=== PATIENT | female | born 1955 | race Hispanic/Latino ===

== ENCOUNTER 2018-12-23 18:05 | Inpatient (IN) | payer OTHER | END 2018-12-30 15:35 | disposition home or self-care (01) | LOC: EDH 18:05 → 2AH 12-25 22:25 → EDHIP 20:01 → 2CH 22:06 | DX: I48.0 Paroxysmal atrial fibrillation (principal); I50.33 Acute on chronic diastolic (congestive) heart failure; Z68.43 Body mass index [BMI] 50.0-59.9, adult; E66.01 Morbid (severe) obesity due to excess calories; E78.5 Hyperlipidemia, unspecified; I11.0 Hypertensive heart disease with heart failure; G47.33 Obstructive sleep apnea (adult) (pediatric); R00.2 Palpitations; E87.6 Hypokalemia ==

== ENCOUNTER 2020-04-22 06:26 | Day surgery (SDC) | payer OTHER ==
[2020-04-18 10:39] LABS: BASOPHILS % (AUTO) 0.3 % (0.0-5.0); EOSINOPHILS % (AUTO) 1.9 % (0.0-8.0); HEMATOCRIT 40.7 % (36-48); LYMPHOCYTES % (AUTO) 23.9 % (21.0-51.0); MEAN CORPUSCULAR HEMOGLOBIN 29.2 pg (27.0-33.0); MEAN CORPUSCULAR HGB CONC 31.7 g/dL (32.0-36.0); MEAN CORPUSCULAR VOLUME 92.1 fL (79-99); MONOCYTES % (AUTO) 7.1 % (3.0-13.0); NEUTROPHILS % (AUTO) 66.5 % (40.0-77.0); PLATELET COUNT (AUTO) 307 K/uL (130-400); RED BLOOD CELL COUNT(AUTO) 4.42 MIL/uL (4.00-5.50); RED CELL DISTRIBUTION WIDTH 14.4 % (11.0-15.5)
[2020-04-18 10:48] LABS: CREATININE 0.8 mg/dL (0.5-1.5); POTASSIUM 4.1 mmol/L (3.5-5.1)
[2020-04-18 11:11] VITALS: BP 136/72
[~2020-04-22] VITALS: Ht 160 cm; Wt 137.0 kg
[~2020-04-22 06:26] MED LIST: AEC81 PO; AMLO-257 PO; APIX5TAB PO; DILT240C97 PO; HYDR12.54 PO; LISI-617 PO; METO100T14 PO
[2020-04-22 06:28] VITALS: BP 147/69
[2020-04-22] MEDS ORDERED: SODIUM CHLORIDE 0.9% 1000ML 1,000 ML IV ONE (07:20)
[2020-04-22] MEDS ORDERED: MIDAZOLAM HCL 1 MG/ML 2ML VIAL ONE (07:28)
[2020-04-22] MEDS ORDERED: MEPERIDINE-PF 25 MG/ML SYG ONE (07:28)
[2020-04-22] MEDS ORDERED: BUPIVACAINE/PF 0.25% 30ML VIAL IJ ONE (07:28)
[2020-04-22] MEDS ORDERED: LIDOCAINE HCL 1% MDV 50ML VIAL ONE (07:28)
[2020-04-22 08:50] VITALS: BP 131/62
== END 2020-04-22 09:45 | disposition home or self-care (01) ==
LOC: DAH 06:26
PROVIDERS: ATTEND Internal Medicine Cardiovascular Disease
DX: I48.0 Paroxysmal atrial fibrillation (principal); I44.0 Atrioventricular block, first degree; Z79.01 Long term (current) use of anticoagulants; Z79.899 Other long term (current) drug therapy
CPT/HCPCS: 33285; 36415; 80048; 85025; A4215; A4216; A4221; A4222; A4223 ×3; A4606; A4649; A4663; A6402; C1764; J3490 ×2; J7030; J2175; J2250

== ENCOUNTER 2021-07-01 10:45 | Observation (INO) | payer OTHER ==
[~2021-07-01] VITALS: Ht 160 cm; Wt 139.3 kg
[~2021-07-01 10:45] MED LIST changes: -AEC81 PO; -LISI-617 PO; +LISI5TAB21 PO
[2021-07-01 11:09] LABS: BASOPHILS % (AUTO) 0.4 % (0.0-5.0); EOSINOPHILS % (AUTO) 0.8 % (0.0-8.0); HEMATOCRIT 44.2 % (36-48); MEAN CORPUSCULAR VOLUME 87.9 fL (79-99); MONOCYTES % (AUTO) 5.5 % (3.0-13.0); NEUTROPHILS % (AUTO) 74.9 % (40.0-77.0); PLATELET COUNT (AUTO) 279 K/uL (130-400); RED BLOOD CELL COUNT(AUTO) 5.03 MIL/uL (4.00-5.50); RED CELL DISTRIBUTION WIDTH 15.7 % (11.0-15.5); WHITE BLOOD COUNT (AUTO) 11.1 K/uL (4.8-10.8)
[2021-07-01 11:19] LABS: CREATININE 0.9 mg/dL (0.5-1.5); POTASSIUM 3.9 mmol/L (3.5-5.1)
[2021-07-01 11:24] LABS: ALBUMIN 3.6 g/dL (3.5-5.0); BILIRUBIN,TOTAL 1.1 mg/dL (0.2-1.0); TOTAL PROTEIN, SERUM 7.5 g/dL (6.0-8.3)
[2021-07-01] MEDS ORDERED: MORPHINE 4 MG SYG ONE (11:42)
[2021-07-01] MEDS ORDERED: ONDANSETRON 4MG INJ ONE (11:42)
[2021-07-01 11:53] LABS: APPEARANCE,URINE Clear (CLEAR); BILIRUBIN,URINE Negative (NEGATIVE); COLOR,URINE Yellow (YELLOW); GLUCOSE, URINE (UA) Negative (NEGATIVE); KETONES,URINE Negative (NEGATIVE); LEUKOCYTE ESTERASE ,URINE Negative (NEGATIVE); NITRATE,URINE Negative (NEGATIVE); OCCULT BLOOD,URINE Negative (NEGATIVE); PROTEIN,URINE Trace mg/dL (NEGATIVE)
[2021-07-01 11:55] LABS: BACTERIA,URINE Rare /HPF (None Seen); RBC,URINE 0-1 /HPF (0-1); SQUAMOUS EPITHELIAL CELL,UR Rare /HPF (0-2); WBC,URINE 0-1 /HPF (0-1)
[2021-07-01] MEDS ORDERED: 0.9%NACL 1000ML 1,000 ML IV SCH (12:00)
[2021-07-01] MEDS ORDERED: ONDANSETRON 4MG INJ IVP SCH (12:00)
[2021-07-01] MEDS ORDERED: MORPHINE 4 MG SYG IV SCH (12:00)
[2021-07-01] MEDS ORDERED: MORPHINE 4 MG SYG IV ONE (13:30)
[2021-07-01] MEDS ORDERED: LABETALOL 20MG SYG IV PRN (16:00)
[2021-07-01] MEDS ORDERED: ACETAMINOPHEN 650 MG SUPPOSITORY RC PRN (16:00)
[2021-07-01] MEDS ORDERED: ACETAMINOPHEN 325 MG TAB PO PRN (16:00)
[2021-07-01] MEDS: LACTATED RINGERS 1000ML 1,000 ML IV SCH (16:00)
[2021-07-01] MEDS: ZOSYN 3.375GM +NS 50ML IV SCH ×2 (16:00→23:45)
[2021-07-01 17:06] VITALS: BP 122/73
[2021-07-01] MEDS ORDERED: DILT360C38 PO (19:45)
[2021-07-01] MEDS ORDERED: PROP225C8 PO (19:45)
[2021-07-01 20:19] VITALS: BP 140/86
[2021-07-01] MEDS: ONDANSETRON 4MG INJ IVP PRN (20:53)
[2021-07-01] MEDS: MORPHINE 2 MG SYG IVP PRN (20:54)
[2021-07-01] MEDS: METOPROLOL TARTRATE 50 MG TAB PO SCH (20:54)
[2021-07-01 23:40] VITALS: BP 117/58
[2021-07-01] MEDS: ENOXAPARIN SODIUM 120 MG/0.8ML SQ SCH (23:51)
[2021-07-02 03:25] LABS: BASOPHILS % (AUTO) 0.2 % (0.0-5.0); EOSINOPHILS % (AUTO) 1.6 % (0.0-8.0); HEMATOCRIT 41.5 % (36-48); LYMPHOCYTES % (AUTO) 18.7 % (21.0-51.0); MEAN CORPUSCULAR HEMOGLOBIN 28.7 pg (27.0-33.0); MEAN CORPUSCULAR VOLUME 89.6 fL (79-99); NEUTROPHILS % (AUTO) 73.2 % (40.0-77.0); PLATELET COUNT (AUTO) 259 K/uL (130-400); RED BLOOD CELL COUNT(AUTO) 4.63 MIL/uL (4.00-5.50); RED CELL DISTRIBUTION WIDTH 15.5 % (11.0-15.5); WHITE BLOOD COUNT (AUTO) 9.6 K/uL (4.8-10.8)
[2021-07-02 03:34] LABS: CREATININE 0.8 mg/dL (0.5-1.5); PHOSPHORUS 3.7 mg/dL (2.5-4.9); POTASSIUM 3.2 mmol/L (3.5-5.1)
[2021-07-02 04:46] VITALS: BP 173/56
[2021-07-02] MEDS: LACTATED RINGERS 1000ML 1,000 ML IV SCH ×2 (05:20→18:35)
[2021-07-02] MEDS ORDERED: POTASSIUM CHLORIDE 20MEQ/100ML 100 ML IV PRN ×2 (06:30→09:00)
[2021-07-02] MEDS ORDERED: LIDOCAINE HCL-MPF 1% 2ML VIAL IV PRN ×2 (06:30→09:00)
[2021-07-02] MEDS ORDERED: POTASSIUM CHLORIDE 10% ELIXIR 20 MEQ/15 ML UDCUP PO PRN (06:30)
[2021-07-02] MEDS ORDERED: MAGNESIUM 2GM PREMIX 50ML 50 ML IV PRN (06:30)
[2021-07-02 07:30] VITALS: BP 105/59
[2021-07-02] MEDS: ONDANSETRON 4MG INJ IVP PRN (07:35)
[2021-07-02] MEDS ORDERED: ENOXAPARIN SODIUM 40 MG/0.4 ML SYRINGE SQ SCH (09:00)
[2021-07-02] MEDS: AMLODIPINE 5 MG TAB PO SCH (09:00)
[2021-07-02] MEDS ORDERED: DIATR MEGLU/DIATRIZOATE SODIUM 30 ML BOTTLE ONE (10:14)
[2021-07-02] MEDS: DILTIAZEM 120MG SR CAP PO SCH (11:25)
[2021-07-02] MEDS: METOPROLOL TARTRATE 50 MG TAB PO SCH ×2 (11:25→20:13)
[2021-07-02] MEDS: ENOXAPARIN SODIUM 120 MG/0.8ML SQ SCH ×2 (11:25→20:14)
[2021-07-02] MEDS: MORPHINE 2 MG SYG IVP PRN (11:26)
[2021-07-02] MEDS: ZOSYN 3.375GM +NS 50ML IV SCH ×2 (11:28→16:34)
[2021-07-02 12:30] VITALS: BP 118/85
[2021-07-02] MEDS: KCL 20 MEQ ERTAB PO PRN ×3 (15:00→20:13)
[2021-07-02 16:00] VITALS: BP 114/80
[2021-07-02 20:50] VITALS: BP 130/93
[2021-07-03] MEDS ORDERED: METOPROLOL TARTRATE 1 MG/ML 5ML VIAL IV ONE ×2 (00:12→00:15)
[2021-07-03 00:32] VITALS: BP 127/74
[2021-07-03] MEDS: ZOSYN 3.375GM +NS 50ML IV SCH ×3 (00:32→18:06)
[2021-07-03 05:09] VITALS: BP 130/84
[2021-07-03 08:00] VITALS: BP 136/92
[2021-07-03] MEDS: AMLODIPINE 5 MG TAB PO SCH (09:00)
[2021-07-03] MEDS: ENOXAPARIN SODIUM 120 MG/0.8ML SQ SCH ×2 (09:35→20:25)
[2021-07-03] MEDS: DILTIAZEM 120MG SR CAP PO SCH (09:35)
[2021-07-03] MEDS: METOPROLOL TARTRATE 50 MG TAB PO SCH ×2 (09:36→20:24)
[2021-07-03] MEDS: LACTATED RINGERS 1000ML 1,000 ML IV SCH ×2 (09:37→20:27)
[2021-07-03 12:00] VITALS: BP 128/97
[2021-07-03 16:00] VITALS: BP 145/85
[2021-07-03 20:00] VITALS: BP 138/96
[2021-07-04] VITALS: BP 131/80
[2021-07-04] MEDS: ZOSYN 3.375GM +NS 50ML IV SCH ×2 (00:51→09:53)
[2021-07-04 04:00] VITALS: BP 150/74
[2021-07-04 08:00] VITALS: BP 127/91
[2021-07-04] MEDS: AMLODIPINE 5 MG TAB PO SCH (09:00)
[2021-07-04] MEDS ORDERED: POLY17PO4 PO (09:40)
[2021-07-04] MEDS: DILTIAZEM 120MG SR CAP PO SCH (09:54)
[2021-07-04] MEDS: METOPROLOL TARTRATE 50 MG TAB PO SCH (09:54)
[2021-07-04] MEDS: ENOXAPARIN SODIUM 120 MG/0.8ML SQ SCH (09:56)
[2021-07-04 12:00] VITALS: BP 148/90
== END 2021-07-04 12:50 | disposition home or self-care (01) ==
LOC: EDH 10:45 → EDHIP 15:38 → 3BH 16:59
PROVIDERS: ADMIT Internal Medicine Pulmonary Disease; ATTEND Internal Medicine Pulmonary Disease
DX: K56.609 Unspecified intestinal obstruction, unspecified as to partial versus complete obstruction (principal); I48.91 Unspecified atrial fibrillation; M19.90 Unspecified osteoarthritis, unspecified site; I10 Essential (primary) hypertension; G47.33 Obstructive sleep apnea (adult) (pediatric); E66.01 Morbid (severe) obesity due to excess calories; R11.2 Nausea with vomiting, unspecified; Z79.01 Long term (current) use of anticoagulants; Z79.899 Other long term (current) drug therapy; Z91.040 Latex allergy status; Z96.653 Presence of artificial knee joint, bilateral
CPT/HCPCS: 36415 ×3; 74018; 74176; 74250; 76705; 78227; 80048; 80053; 81001; 82550 ×3; 83690; 83735; 83874 ×3; 84100; 84132; 84484 ×4; 85025 ×2; 93005 ×3; 96361; 96365; 96366 ×3; 96372 ×4; 96375; 96376 ×2; 99285; A9537; G0378 ×68; J1650 ×5; J2270 ×2; J2405 ×3; J2543 ×9; J3490; J7120 ×2; Q9963

== ENCOUNTER → 2022-02-08 | Outpatient (CLI) | payer OTHER ==
[~2022-02-08] MED LIST changes: -AMLO-257 PO; -DILT240C97 PO; +DILT360C38 PO; +POLY17PO4 PO; +PROP225C8 PO
[2022-02-08 12:40] LABS: CREATININE 0.9 mg/dL (0.5-1.5); DIGOXIN 0.5 ng/mL (0.50-2.00); POTASSIUM 3.4 mmol/L (3.5-5.1)
== END | disposition home or self-care (01) ==
LOC: LAB 10:02
PROVIDERS: ATTEND Physician Assistant
DX: I10 Essential (primary) hypertension (principal); Z79.899 Other long term (current) drug therapy
CPT/HCPCS: 36415; 80048; 80162

== ENCOUNTER 2022-02-17 06:46 | Day surgery (SDC) | payer OTHER ==
[2022-02-15 15:51] LABS: BASOPHILS % (AUTO) 0.4 % (0.0-5.0); EOSINOPHILS % (AUTO) 1.8 % (0.0-8.0); HEMATOCRIT 44.8 % (36-48); LYMPHOCYTES % (AUTO) 22.8 % (21.0-51.0); MEAN CORPUSCULAR HEMOGLOBIN 29.2 pg (27.0-33.0); MEAN CORPUSCULAR HGB CONC 32.6 g/dL (32.0-36.0); MEAN CORPUSCULAR VOLUME 89.6 fL (79-99); NEUTROPHILS % (AUTO) 67.7 % (40.0-77.0); PLATELET COUNT (AUTO) 272 K/uL (130-400); RED CELL DISTRIBUTION WIDTH 15.5 % (11.0-15.5); WHITE BLOOD COUNT (AUTO) 10.2 K/uL (4.8-10.8)
[2022-02-15 15:56] LABS: CREATININE 0.9 mg/dL (0.5-1.5); POTASSIUM 3.4 mmol/L (3.5-5.1)
[2022-02-15 16:00] LABS: INR 1.03 (0.85-1.15); PROTHROMBIN TIME 11.2 SEC (9.6-11.6)
[2022-02-15 16:01] LABS: PARTIAL THROMBOPLASTIN TIME 28.1 SEC (26.3-35.5)
[2022-02-16 11:29] VITALS: BP 156/82
[~2022-02-17] VITALS: Ht 160 cm; Wt 140.6 kg
[2022-02-17] VITALS (15 sets, daily range): BP systolic 118–161; BP diastolic 57–100
[~2022-02-17 06:46] MED LIST changes: +DILT120T PO; -DILT360C38 PO; +DRON400T7 PO; +LISI10TA24 PO; -LISI5TAB21 PO; -POLY17PO4 PO; -PROP225C8 PO
[2022-02-17] MEDS ORDERED: 0.9%NACL 1000ML 1,000 ML IV ONE (07:18)
[2022-02-17] MEDS ORDERED: KCL 20 MEQ ERTAB PO PRN (08:00)
[2022-02-17] MEDS ORDERED: LIDOCAINE PF 100MG/5ML (2%) SYRINGE 5ML ONE (08:52)
[2022-02-17] MEDS ORDERED: PROPOFOL 10 MG/ML 20ML VIAL IV ONE (08:52)
== END 2022-02-17 10:30 | disposition home or self-care (01) ==
LOC: DAH 06:46
PROVIDERS: ATTEND Internal Medicine Cardiovascular Disease
DX: I48.19 Other persistent atrial fibrillation (principal); Z20.822 Contact with and (suspected) exposure to COVID-19; I44.0 Atrioventricular block, first degree; I49.1 Atrial premature depolarization; I10 Essential (primary) hypertension; E66.01 Morbid (severe) obesity due to excess calories; G47.33 Obstructive sleep apnea (adult) (pediatric); I25.2 Old myocardial infarction; Z79.01 Long term (current) use of anticoagulants; Z79.899 Other long term (current) drug therapy; Z88.6 Allergy status to analgesic agent; Z91.040 Latex allergy status; Z98.891 History of uterine scar from previous surgery; Z98.890 Other specified postprocedural states; Z82.49 Family history of ischemic heart disease and other diseases of the circulatory system; Z68.43 Body mass index [BMI] 50.0-59.9, adult
CPT/HCPCS: 87426; 80048; 85025; 85610; 85730; 36415; 92960; 93005 ×2; A4663; J7030 ×2; J2001; J2704; A4615; A4215; A4221; A4216; A4223 ×2; A4606; 99156

== ENCOUNTER → 2022-08-03 | Outpatient (CLI) | payer OTHER ==
[2022-08-03 12:31] LABS: CREATININE 0.8 mg/dL (0.5-1.5)
== END | disposition home or self-care (01) ==
LOC: LAB 10:14
PROVIDERS: ATTEND Internal Medicine Cardiovascular Disease
DX: I48.0 Paroxysmal atrial fibrillation (principal)
CPT/HCPCS: 36415; 82565; 84520

== ENCOUNTER → 2022-08-05 | Outpatient (CLI) | payer OTHER ==
[~2022-08-05] MED LIST changes: +IOHEXOL 350 MG/ML 100ML INFUS..BTL IV ONE
== END | disposition home or self-care (01) ==
LOC: RAH 10:09
PROVIDERS: ATTEND Internal Medicine Cardiovascular Disease
DX: I25.10 Atherosclerotic heart disease of native coronary artery without angina pectoris (principal); I48.0 Paroxysmal atrial fibrillation; I51.7 Cardiomegaly; K44.9 Diaphragmatic hernia without obstruction or gangrene; N28.1 Cyst of kidney, acquired
CPT/HCPCS: 71275; Q9967

== ENCOUNTER 2022-08-24 06:32 | Observation (INO) | payer OTHER ==
[2022-08-20 13:15] LABS: BASOPHILS % (AUTO) 0.2 % (0.0-5.0); EOSINOPHILS % (AUTO) 1.3 % (0.0-8.0); HEMATOCRIT 39.9 % (36-48); LYMPHOCYTES % (AUTO) 19.9 % (21.0-51.0); MEAN CORPUSCULAR HEMOGLOBIN 30.6 pg (27.0-33.0); MEAN CORPUSCULAR HGB CONC 32.8 g/dL (32.0-36.0); MEAN CORPUSCULAR VOLUME 93.2 fL (79-99); MONOCYTES % (AUTO) 7.9 % (3.0-13.0); NEUTROPHILS % (AUTO) 70.4 % (40.0-77.0); PLATELET COUNT (AUTO) 257 K/uL (130-400); RED BLOOD CELL COUNT(AUTO) 4.28 MIL/uL (4.00-5.50); RED CELL DISTRIBUTION WIDTH 15.3 % (11.0-15.5); WHITE BLOOD COUNT (AUTO) 9.2 K/uL (4.8-10.8)
[2022-08-20 13:25] LABS: INR 1.02 (0.85-1.15); PROTHROMBIN TIME 11.1 SEC (9.6-11.6)
[2022-08-20 13:26] LABS: CREATININE 1.1 mg/dL (0.5-1.5); PARTIAL THROMBOPLASTIN TIME 30.3 SEC (26.3-35.5); POTASSIUM 3.7 mmol/L (3.5-5.1)
[2022-08-20 13:43] VITALS: BP 149/60
[2022-08-24] VITALS (25 sets, daily range): BP systolic 119–157; BP diastolic 47–78
[~2022-08-24] VITALS: Ht 160 cm; Wt 141.7 kg
[~2022-08-24 06:32] MED LIST changes: +0.9%NACL 1000ML 1,000 ML IV SCH; -DILT120T PO; +DILT240C97 PO; -IOHEXOL 350 MG/ML 100ML INFUS..BTL IV ONE
[2022-08-24] MEDS ORDERED: HEPARIN 10,000 UNIT/10ML (1,000 UNIT/ML) VIAL ONE ×4 (08:19→11:17)
[2022-08-24] MEDS ORDERED: LIDOCAINE HCL 1% MDV 50ML VIAL ONE (08:19)
[2022-08-24] MEDS ORDERED: LIDOCAINE PF 100MG/5ML (2%) SYRINGE 5ML ONE (08:43)
[2022-08-24] MEDS ORDERED: SUCCINYLCHOLINE 200MG/10ML SYR ONE (08:43)
[2022-08-24] MEDS ORDERED: PHENYLEPHRINE HCL 10 MG/ML 1ML VIAL IV ONE (08:43)
[2022-08-24] MEDS ORDERED: EPHEDRINE SULFATE 50 MG/ML AMPULE ONE ×2 (08:44→14:00)
[2022-08-24] MEDS ORDERED: FENTANYL CITRATE PF 50 MCG/1 ML 5ML AMP IV ONE (08:44)
[2022-08-24] MEDS ORDERED: ROCURONIUM 10MG/1ML SYR 10 MG/ML ML ONE (08:44)
[2022-08-24] MEDS ORDERED: MIDAZOLAM HCL 1 MG/ML 2ML VIAL ONE (08:44)
[2022-08-24] MEDS ORDERED: PROPOFOL 10 MG/ML 20ML VIAL IV ONE (08:44)
[2022-08-24] MEDS ORDERED: GLYCOPYRROLATE 1 MG/5 ML SYRINGE ONE (08:44)
[2022-08-24] MEDS ORDERED: ONDANSETRON 4MG INJ ONE (08:46)
[2022-08-24] MEDS ORDERED: METOCLOPRAMIDE 10 MG/2 ML VIAL ONE (08:46)
[2022-08-24] MEDS ORDERED: DEXAMETHASONE SOD PHOSPHATE 10MG/ML 1ML VIAL ONE (08:46)
[2022-08-24] MEDS ORDERED: AMIODARONE 150MG VIAL ONE ×2 (10:58→12:46)
[2022-08-24 12:38] LABS: ABG BASE EXCESS -2.3 mmol/L (-2.0-3.0); ABG HCO3 23.8 mmol/L (21.0-28.0); ABG OXYGEN SATURATION 86.1 % (95.0-99.0); ABG PCO2 46 mmHg (32-45)
[2022-08-24] MEDS ORDERED: PROTAMINE SULFATE 10 MG/ML 25ML VIAL IV ONE (13:11)
[2022-08-24 13:59] LABS: ABG BASE EXCESS -0.2 mmol/L (-2.0-3.0); ABG HCO3 25.3 mmol/L (21.0-28.0); ABG OXYGEN SATURATION 99.3 % (95.0-99.0); ABG PCO2 45 mmHg (32-45)
[2022-08-24] MEDS ORDERED: [UNRECOGNIZED DRUG - REMARK] MISC SCH (14:30)
[2022-08-24] MEDS ORDERED: PANTOPRAZOLE 40 MG TAB DR PO SCH (15:00)
[2022-08-24] MEDS: SUCRALFATE 1 GM TABLET PO SCH ×2 (15:58→20:08)
[2022-08-24] MEDS: DRONEDARONE HYDROCHLORIDE 400 MG TABLET PO SCH (20:08)
[2022-08-24] MEDS ORDERED: ENOXAPARIN SODIUM 120 MG/0.8ML SQ ONE (21:00)
[2022-08-25] MEDS: SUCRALFATE 1 GM TABLET PO SCH ×2 (00:53→08:25)
[2022-08-25 04:30] VITALS: BP 141/67
[2022-08-25 07:16] VITALS: BP 158/76
[2022-08-25] MEDS: APIXABAN 5 MG TABLET PO SCH ×2 (08:23→12:03)
[2022-08-25] MEDS: DRONEDARONE HYDROCHLORIDE 400 MG TABLET PO SCH (08:24)
[2022-08-25] MEDS ORDERED: HYDROCHLOROTHIAZIDE 25 MG TABLET PO SCH (09:00)
[2022-08-25] MEDS ORDERED: METOPROLOL TARTRATE 50 MG TAB PO SCH (09:00)
[2022-08-25] MEDS ORDERED: DILTIAZEM 120MG SR CAP PO SCH (09:00)
[2022-08-25] MEDS ORDERED: PANTOPRAZOLE 40 MG TAB DR PO SCH (09:00)
[2022-08-25] MEDS ORDERED: LISINOPRIL 10 MG TABLET PO SCH (09:00)
[2022-08-25] MEDS ORDERED: PANT40TA PO (10:52)
[2022-08-25] MEDS ORDERED: SUCR1ORA15 PO (10:52)
[2022-08-25 11:14] VITALS: BP 149/61
== END 2022-08-25 13:20 | disposition home or self-care (01) ==
LOC: DAH 06:32 → DAHIP 06:33 → 2DH 15:40
PROVIDERS: ADMIT Internal Medicine Cardiovascular Disease; ATTEND Internal Medicine Cardiovascular Disease
DX: I48.0 Paroxysmal atrial fibrillation (principal); Z20.822 Contact with and (suspected) exposure to COVID-19; I10 Essential (primary) hypertension; E66.01 Morbid (severe) obesity due to excess calories; Z79.01 Long term (current) use of anticoagulants; Z79.899 Other long term (current) drug therapy; Z98.891 History of uterine scar from previous surgery; Z68.43 Body mass index [BMI] 50.0-59.9, adult
CPT/HCPCS: 80048; 85025; 85610; 85730; 36415; 93005 ×3; 93622; 93656; 93657; 96372; 82435 ×2; 82947 ×2; 84132 ×2; 84295 ×2; 82803 ×2; 85018 ×2; 83605 ×2; 87426; 36600; C1894 ×4; A4344; C1732 ×2; C1893; A4215 ×2; C1731; A4649 ×2; G0378 ×23; A4663 ×2; J3010; J0330; J3490 ×4; J1100; J2720; J2001; J1644 ×5; J2250; J2704; J2405; J2765; J1650; J2370; J0282 ×2; A4223 ×3; A4222; A4221; A4216; A4606

== ENCOUNTER → 2023-04-29 | Outpatient (CLI) | payer OTHER ==
[~2023-04-29] MED LIST changes: -0.9%NACL 1000ML 1,000 ML IV SCH; +REGADENOSON 0.4 MG/5 ML PF SYG IVP ONE
== END | disposition home or self-care (01) ==
LOC: SHCH 09:10
PROVIDERS: ATTEND Internal Medicine Cardiovascular Disease
DX: I48.0 Paroxysmal atrial fibrillation (principal); R94.39 Abnormal result of other cardiovascular function study; R07.89 Other chest pain; I48.92 Unspecified atrial flutter
CPT/HCPCS: 78452; 93017; J2785; A9500 ×2; 96374

== ENCOUNTER → 2023-08-03 | Outpatient (CLI) | payer OTHER ==
[~2023-08-03] MED LIST changes: -REGADENOSON 0.4 MG/5 ML PF SYG IVP ONE
== END | disposition home or self-care (01) ==
LOC: SHCH 12:45
PROVIDERS: ATTEND Internal Medicine Cardiovascular Disease
DX: I87.2 Venous insufficiency (chronic) (peripheral) (principal)
CPT/HCPCS: 93970

== ENCOUNTER 2024-02-21 04:30 | Inpatient (IN) | payer OTHER ==
[~2024-02-21] VITALS: Ht 160 cm; Wt 105.0 kg
--- NOTE | 2024-02-21 04:42 | ERN ---
ED Note History of Present Illness Stated Complaint: C/O ABD PAIN WITH N X V ONSET MIDNIGHT. Chief Complaint: Abdominal Pain Time Seen by MD: 04:35 Dictation: This is a 68-year-old extremely morbidly obese female who came in with severe abdominal pain mostly in the epigastrium and right upper quadrant area. She stated that she ate some taquitos she developed the severe crampy abdominal pain toes after which This kept her up all night associated with nausea and vomitings. By 530 she could not bear the pain and woke her came to the ER for further evaluation she had similar severe abdominal pain in the past at which time she was noted to have pancreatitis. She also had outpatient evaluation by EGD and was told she had H pylori which was treated. She appeared extremely uncomfortable due to pain. She denied history of any alcohol intake or gallbladder problems in the past. Temperature 98.2 pulse 65 respirations 20 blood pressure 163/81 pulse oximetry 97% on room air Her chronic medical problems include Acute on chronic pancreatitis Primary HTN Chronic Afib on DOAC history of ablation and EFE CHF, not on exacerbation, stage III diastolic dysfunction: EF 35-40% (echo on 03/2022) POOJA on CPAP Morbid Obesity HX of SBO Allergies: Coded Allergies: Latex, Natural Rubber (Verified Allergy, Unknown, 12/23/18) codeine (Verified Allergy, Unknown, 12/23/18) Home Meds Reported Medications Dronedarone Hydrochloride (Multaq) 400 Mg Tablet, 400 MG PO BID, TAB 10/14/23 Diltiazem HCl (Diltiazem 24Hr ER) 240 Mg Cap.er.24h, 240 MG PO DAILY, CAPSULE.DR 08/20/22 Metoprolol Tartrate (Metoprolol Tartrate) 100 Mg Tablet, 100 MG PO BID, TAB 08/20/22 Apixaban (Eliquis) 5 Mg Tablet, 5 MG PO BID, TAB 02/16/22 Lisinopril (Lisinopril) 10 Mg Tablet, 10 MG PO DAILY, TAB 02/16/22 Hydrochlorothiazide (Hydrochlorothiazide) 12.5 Mg Tablet, 12.5 MG PO DAILY, TAB 04/21/20 Past Medical History Past Medical History: A-Fib, Hypertension, Pancreatitis Surgical History: Other, Surgical History Other: BILATERAL KNEE REPLACEMENT Social History: Other History: Not Applicable RN Note Reviewed/Agreed w/PFSH: Yes Review of System Dictation Constitutional: Negative for fever,chills, and weight loss Eyes: Negative for injury, pain,redness, and discharge ENT: Negative for injury,pain or swelling Cardiovascular: Negative for chest pain, palpitations, and edema Respiratory: Negative for shortness of breath, cough, and wheezing, Abdomen/GI: Positive for abdominal pain, nausea, vomiting, denies diarrhea, and constipation Back: Negative for injury and pain : Negative for injury, bleeding and discharge MS/Extremity: Negative for injury and deformity Skin: Negative for rash, and discoloration Neuro: Negative for headache, weakness, numbness, tingling, and seizure Psych: Negative for suicide ideation, homicidal ideation, and hallucinations Initial Vital Sign VS Vital Signs Date Time Temp Pulse Resp B/P (MAP) Pulse Ox O2 Delivery O2 Flow Rate FiO2 02/21/24 04:33 98.2 65 20 163/81 97 Room Air Physical Exam Dictation General: awake, alert, NAD extremely obese Head/Face: Normocephalic, atraumatic Eyes: PERRL, EOMI, vision at baseline ENT: oral cavity clear, TMs clear, no signs of infection Neck: Trachea midline, supple, no nuchal rigidity Cardiovascular: RRR, normal S1/S2, No MRGs, no JVD Respiratory: CTAB, no respiratory distress, No rales or wheezes Abdomen: Soft, tender in the epigastric area and right upper quadrant non- distended, normal bowel sounds, no guarding or rebound. Skin: Warm, dry, normal turgor, no rash MS/Extremity: Pulses equal, no cyanosis, neurovascular intact, FROM Neuro: COAx4, GCS 15, strength 5/5, CN 2-12 intact, normal cerebellar exam, normal gait, Psych: Normal behavior, mood, and affect normal Extremities-trace edema without any palpable cords, Homans sign is negative Results (Laboratory/Radiology) Laboratory/Radiology Laboratory Tests Test 02/21/24 05:06 White Blood Count 5.6 K/uL (4.8-10.8) Red Blood Count 4.76 MIL/uL (4.00-5.50) Hemoglobin 14.5 g/dL (12.0-16.0) Hematocrit 43.5 % (36-48) Mean Corpuscular Volume 91.4 fL (79-99) Mean Corpuscular Hemoglobin 30.5 pg (27.0-33.0) Mean Corpuscular Hemoglobin Concent 33.3 g/dL (32.0-36.0) Red Cell Distribution Width 14.2 % (11.0-15.5) Platelet Count 249 K/uL (130-400) Mean Platelet Volume 11.4 fL (7.5-10.5) H Immature Granulocyte % (Auto) 0.5 % (0-1) Neutrophils (%) (Auto) 89.6 % (40.0-77.0) H Lymphocytes (%) (Auto) 9.3 % (21.0-51.0) L Monocytes (%) (Auto) 0.2 % (3.0-13.0) L Eosinophils (%) (Auto) 0.2 % (0.0-8.0) Basophils (%) (Auto) 0.2 % (0.0-5.0) Neutrophils # (Auto) 5.0 K/uL (1.8-7.7) Lymphocytes # (Auto) 0.5 K/uL (1.0-4.8) L Monocytes # (Auto) 0.0 K/uL (0.1-1.0) L Eosinophils # (Auto) 0.01 K/uL (0.00-0.70) Basophils # (Auto) 0.01 K/uL (0.00-0.20) Absolute Immature Granulocyte (auto 0.03 K/uL (0-1) Nucleated Red Blood Cells 0.0 % (0.0-0.19) White Cell Morphology Comment See comments Sodium Level 147 mmol/L (136-145) H Potassium Level 2.8 mmol/L (3.5-5.1) *L Chloride Level 105 mmol/L (101-111) Carbon Dioxide Level 35 mmol/L (21-32) H Blood Urea Nitrogen 15 mg/dL (7-18) Creatinine 1.0 mg/dL (0.5-1.0) Glomerular Filtration Rate Calc 62 mL/min (>90) Random Glucose 133 mg/dL (70-105) H Total Calcium 9.2 mg/dL (8.5-10.1) Total Bilirubin 1.5 mg/dL (0.2-1.0) H Direct Bilirubin 0.8 mg/dL (0.0-0.3) H Aspartate Amino Transf (AST/SGOT) 243 U/L (10-37) H Alanine Aminotransferase (ALT/SGPT) 99 U/L (12-78) H Alkaline Phosphatase 142 U/L (50-136) H Total Protein 7.3 g/dL (6.0-8.3) Albumin 3.7 g/dL (3.5-5.0) Labs Reviewed?: Yes ED Course ED Course Orders Procedure Category Date Status Time Vital Signs Per CPOE 02/21/24 Transmitted Routine 04:32 Saline Lock Iv CPOE 02/21/24 Transmitted 04:32 Cbc With Differential LAB 02/21/24 Complete 04:32 Lipase LAB 02/21/24 In Process 04:32 Urinalysis Profile LAB 02/21/24 Logged 04:32 Basic Metabolic Panel LAB 02/21/24 In Process 04:32 0.9%Nacl 1000ml (Ns PHA 02/21/24 Complete 1000ml) 05:00 Ondansetron 4mg Inj PHA 02/21/24 Complete (Zofran 4mg Inj) 05:00 Pantoprazole 40mg Inj PHA 02/21/24 Complete (Protonix 40mg Inj 05:00 Hepatic Function Panel LAB 02/21/24 In Process 04:32 Morphine 4mg Syg PHA 02/21/24 Complete (Morphine 4mg Syg) 05:30 Us Abdominal Ruq\Ltd US 02/21/24 Taken 05:54 Potassium Bicarb/Cit PHA 02/21/24 In Process Ac 25meq (K-Lyte Ta 06:30 Edm Admit Bridge Order ADM 02/21/24 Verified 06:26 Admit Orders ADM 02/21/24 Verified 06:26 Amp/Sulbac 1.5gm+Ns PHA 02/21/24 Verified 100ml (Unasyn 1.5gm+ 06:30 Current Medications Medications (Trade) Dose Ordered Sig/Umer Route PRN Reason Start Time Stop Time Status Last Admin Dose Admin Morphine Sulfate (morPHINE 4MG SYG) 4 mg ONCE ONCE IVP 02/21/24 05:30 02/21/24 05:31 DC 02/21/24 05:32 Ondansetron HCl (zoFRAN 4MG INJ) 4 mg ONCE ONCE IVP 02/21/24 05:00 02/21/24 05:01 DC 02/21/24 05:32 Pantoprazole Sodium (PROTonix 40MG INJ) 40 mg ONCE ONCE IVP 02/21/24 05:00 02/21/24 05:01 DC 02/21/24 05:32 Potassium Bicarbonate (K-Lyte Tablet Eff 25 Meq Tablet.eff) 25 meq ONCE ONCE PO 02/21/24 06:30 02/21/24 06:31 Sodium Chloride 1,000 ml @ 0 mls/hr ONCE ONCE IV 02/21/24 05:00 02/21/24 05:01 DC 02/21/24 05:32 Vital Signs Date Time Temp Pulse Resp B/P (MAP) Pulse Ox O2 Delivery O2 Flow Rate FiO2 02/21/24 04:33 98.2 65 20 163/81 97 Room Air We will perform diagnostic labs, advanced imaging and administer medications according to the patient's complaint. Once the results are available, will review and personally interpreted the labs to rule out any acute life- threatening emergency the trach require immediate intervention and treatment. I will then re-evaluate the patient after treatment and diagnostic exams have return to determine whether the patient requires any further testing, can safely be discharged home or need further admission to hospital for additional treatment and evaluation. 5:40 a.m. CBC within normal limits BNP 7 is still pending. She does admit to some improvement after morphine and hydration is in progress. 6:02 a.m. BNP 7 and hepatic panel reported potassium 2.8 bicarb 35 BUN and creatinine are 15 and 1.0 LFTs are abnormal with increased transaminases and bilirubin. Ultrasound of the abdomen is pending at this time I recommended admission to the hospital to evaluate abnormal LFTs in the setting of abdominal pain raising a concern for recurrent pancreatitis, cholelithiasis and cholecystitis. Lipase is still pending patient may need even triglycerides checked Medical Decision Making MDM MDM: Differential diagnosis: Acute gastritis, biliary colic, acute cholecystitis, pancreatitis Rationale: Tests considered and ordered secondary to shared decision making include: labs, ECG and radiology Previous outside records reviewed: Old ER visits. Risk of complication and/or morbidity or mortality of patient management: None Medications-Per medication reconciliation Need for hospitalization: Patient does meet criteria for hospitalization. Need for emergency major/minor surgery: No There are no social concerns with this patient. Prescription drug management Prescriptions will include symptomatic care Patient's prior external medical records from other ER visits were reviewed by me as indicated. Prior testing and results from previous visits were reviewed. Prior tests were taken into account with medical decision making and resource utilization, independent historian/historians were used to obtain complete medical history. I independently interpreted the test that were performed, results were reviewed by me and considered findings on radiology if ordered. Medical management and examination interpretation discussions were had by me with other qualified healthcare professionals as indicated for the patient's care. DX & DISP Disposition: Inpatient Decision to Admit Time: 05:55 Departure Impression: Primary Impression: Acute abdominal pain Additional Impressions: Nausea & vomiting, Abnormal transaminases, Hyperbilirubinemia, Hypokalemia, Recurrent pancreatitis Condition: Stable Additional Instructions: Patient was informed of all the diagnostic labs and procedures conducted in the emergency room today and demonstrated understanding of the results. I personally reviewed and interpreted all the diagnostic exams performed in the ER today. The patient will be admitted to the hospital for further treatment and evaluation. Disposition-admit to facility Condition-stable/guarded Course-uncertain at this time Pain status-decreased Assessment-exam unchanged Admission Certification- I certify that the patients status is appropriate and is based on my best clinical judgment and the patient's condition as documented in the medical records Referrals: SEAN NASCIMENTO MD (PCP) JULIETA CUMMINS MD Feb 21, 2024 04:42
[2024-02-21 05:28] LABS: BASOPHILS # (AUTO) 0.01 K/uL (0.00-0.20); BASOPHILS % (AUTO) 0.2 % (0.0-5.0); EOSINOPHILS # (AUTO) 0.01 K/uL (0.00-0.70); EOSINOPHILS % (AUTO) 0.2 % (0.0-8.0); HEMATOCRIT 43.5 % (36-48); IMMATURE GRANULOCYTE ABSOLUTE 0.03 K/uL (0-1); LYMPHOCYTES # (AUTO) 0.5 K/uL (1.0-4.8); LYMPHOCYTES % (AUTO) 9.3 % (21.0-51.0); MEAN CORPUSCULAR HEMOGLOBIN 30.5 pg (27.0-33.0); MEAN CORPUSCULAR HGB CONC 33.3 g/dL (32.0-36.0); MEAN CORPUSCULAR VOLUME 91.4 fL (79-99); MONOCYTES % (AUTO) 0.2 % (3.0-13.0); NEUTROPHILS % (AUTO) 89.6 % (40.0-77.0); PLATELET COUNT (AUTO) 249 K/uL (130-400); RED BLOOD CELL COUNT(AUTO) 4.76 MIL/uL (4.00-5.50); RED CELL DISTRIBUTION WIDTH 14.2 % (11.0-15.5); WHITE BLOOD COUNT (AUTO) 5.6 K/uL (4.8-10.8)
[2024-02-21 05:32] LABS: ALBUMIN 3.7 g/dL (3.5-5.0); BILIRUBIN,DIRECT 0.8 mg/dL (0.0-0.3); BILIRUBIN,TOTAL 1.5 mg/dL (0.2-1.0); TOTAL PROTEIN, SERUM 7.3 g/dL (6.0-8.3)
[2024-02-21] MEDS: 0.9%NACL 1000ML 1,000 ML IV ONE (05:32)
[2024-02-21] MEDS: ondanSETRON 4MG INJ IVP ONE (05:32)
[2024-02-21] MEDS: PANTOPrazole 40 MG/VIAL IVP ONE (05:32)
[2024-02-21] MEDS: morPHINE 4 MG SYG IVP ONE (05:32)
[2024-02-21 05:48] LABS: POTASSIUM 2.8 mmol/L (3.5-5.1)
[2024-02-21] MEDS ORDERED: acetaMINOPHEN 650 MG SUPPOSITORY RC PRN (06:30)
[2024-02-21] MEDS ORDERED: LAbetaLOL 20MG SYG IV PRN (06:30)
[2024-02-21] MEDS ORDERED: hydrALAZine 20MG/ML VIAL IV PRN (06:30)
[2024-02-21] MEDS: UNASYN 1.5GM+NS 100ML IV ONE (06:48)
[2024-02-21] MEDS: PoTASSium BIcarbonate/CIT AC 25 MEQ TABLET.EFF PO ONE (07:11)
--- NOTE | 2024-02-21 07:45 | NUR ---
REPORT RECEIVED FROM [facility]AB[facility]ODRIGUESKN[facility] OUT [facility]
--- NOTE | 2024-02-21 08:20 | HMCIMG ---
US ABDOMINAL RUQ\E\LTD HISTORY: cholecystitis? abnormal LFTS Abdominal pain N/V? COMPARISON: 10/13/2023 FINDINGS: There is moderate fatty infiltration of the liver. There are no focal liver masses. The liver is enlarged at 19 cm.Gallbladder appears distended to 10 cm. There is mild pericholecystic edema. There are no visible gallstones. These findings could represent acalculous cholecystitis in the appropriate clinical setting. Common duct is normal at 5 mm.. Right kidney is normal with no evidence of mass, hydronephrosis or stone.The pancreas appears normal as well. IMPRESSION: 1. Distended gallbladder with mild wall thickening and with some pericholecystic edema, no stones identified, this could represent acute cholecystitis in the appropriate clinical setting. 2. Moderate hepatic steatosis, the liver is also enlarged at 19 cm.
--- NOTE | 2024-02-21 08:30 | NUR ---
INTRODUCTIONS MADE TO PT.
[2024-02-21] MEDS: PoTASSium chloRIDE 20MEQ/100ML 100 ML IV ONE (09:13)
[2024-02-21] MEDS: HYDROcodone/APAP 5/325 1 TAB TABLET PO PRN (09:13)
[2024-02-21] MEDS: LACTATED RINGERS 1000ML 1,000 ML IV SCH (09:13)
[2024-02-21] MEDS: ENOXAPARIN SODIUM 40 MG/0.4 ML SYRINGE SQ SCH (09:14)
--- NOTE | 2024-02-21 09:57 | NUR ---
SURGICAL CONSULT: I JUST SPOKE W/DR ESCOBAR AND INFORMED HIM OF PT.
--- NOTE | 2024-02-21 09:59 | NUR ---
PT ABLE TO GET OOB AND AMBULATE W/A STEADY GAIT TO THE RESTROOM.
[2024-02-21] MEDS ORDERED: levoFLOXacin 500 MG/D5W 100 ML 100 ML IV SCH (10:00)
[2024-02-21] MEDS ORDERED: metRONIDazole 500MG/100ML BAG IV SCH (10:00)
--- NOTE | 2024-02-21 10:09 | HP ---
[facility] HISTORY & PHYSICAL Date Patient Seen: Feb 21, 2024 Time of Visit: 09:53 Supervising Physician: [Dr. Lew] Primary Care Physician: [Dr. Codey Cameron] Outpatient Specialists: [ ] Inpatient Consults: [Dr. Mix] PROBLEM LIST: Acute on chronic pancreatitis, pending LDH to calculate susanne's score Acute cholecystitis Permanent atrial fibrillation, on anti-arrhythmics s/p ablation Intractable abdominal pain with nausea and vomiting H-pylori, treated Plan: 2L LR bolus now Continue maintenance fluids with LR @ 125ml/hr Considered levaquin and flagyl given recent hx of h pylori but will avoid quinolone with known QT prolongation in Afib patient Start Zosyn General surgery consult Start protonix drip NPO Zofran prn Order HIDA scan Trend lipase/LFT's Order triglycerides Monitor and replace electrolytes, potassium Pain management Resume home meds including antiarrhymics, hold lisinopril, HCTZ and eliquis Start lovenox prophylaxis HPI: [This is a 68-year-old female with a history of hypertension and chronic pancreatitis who presented to the ED for evaluation of severe abdominal pain associated with nausea and vomiting onset to few hours prior to arrival. Per ED report, her pain was located mostly in epigastric area as well as right upper quadrant. She has a history of pancreatitis and had an endoscopy done recently which revealed H pylori for which she was treated. Her labs on admission remarkable for hypokalemia of 2.8 [place] [id number]. She has some mild elevation in her LFTs with ALT of 2.23 and AST of 99. Her bilirubin was 1.5. Blood sugar is 133, WBCs were 5. Her abdominal ultrasound on admission revealed a distended gallbladder, no stones, but did have pericholecystic edema which could represent acute cholecystitis. She had a CT of the abdomen on 10/13/2023 which revealed small bilateral renal cysts as well as distended gallbladder but was otherwise unremarkable. Patient currently in 5/10 pain. States symptoms started after eating [employer] the day before around 4:30PM. She then ate a muffin around 9PM and started with vomiting greater than 10 times, no diarrhea. She last vomited as she arrived in the ED. Patient admits a hx of pancreatitis X 4. She reports being treated for an incomplete bowel obstruction in 2006, no surgical intervention at that time.] PAST MEDICAL HX: see above PAST SURGICAL HX: noncontributory SOCIAL HISTORY: No tobacco, ETOH, or illicit drug use Coded Allergies: Latex, Natural Rubber (Verified Allergy, Unknown, 12/23/18) codeine (Verified Allergy, Unknown, 12/23/18) REVIEW OF SYSTEMS: 12 point ROS reviewed with patient. Pertinent positives mentioned above. Otherwise negative. PHYSICAL EXAM: GENERAL: alert, weak, awake oriented x 3 HEENT: EOMI, Sclera non icteric, moist mucosa NECK: Supple, no JVD, trachea midline LUNGS: Clear breath sounds bilaterally. No wheezes HEART: Regular rate and rhythm. Normal S1 and S2, without murmurs ABD: Abdomen soft, nontender. Bowel sounds present EXT: No clubbing cyanosis or edema NEURO: Alert and oriented to person, follows commands Vital Signs (last 8hr) Date Time Temp Pulse Resp B/P (MAP) Pulse Ox O2 Delivery O2 Flow Rate FiO2 02/21/24 07:00 98.8 73 16 153/61 98 Room Air* 0 21 02/21/24 04:33 98.2 65 20 163/81 97 Room Air LABS: Hematology Labs: Test 02/21/24 05:06 Range/Units White Blood Count 5.6 4.8-10.8 K/uL Red Blood Count 4.76 4.00-5.50 MIL/uL Hemoglobin 14.5 12.0-16.0 g/dL Hematocrit 43.5 36-48 % Mean Corpuscular Volume 91.4 79-99 fL Mean Corpuscular Hemoglobin 30.5 27.0-33.0 pg Mean Corpuscular Hemoglobin Concent 33.3 32.0-36.0 g/dL Red Cell Distribution Width 14.2 11.0-15.5 % Platelet Count 249 130-400 K/uL Mean Platelet Volume 11.4 H 7.5-10.5 fL Immature Granulocyte % (Auto) 0.5 0-1 % Neutrophils (%) (Auto) 89.6 H 40.0-77.0 % Lymphocytes (%) (Auto) 9.3 L 21.0-51.0 % Monocytes (%) (Auto) 0.2 L 3.0-13.0 % Eosinophils (%) (Auto) 0.2 0.0-8.0 % Basophils (%) (Auto) 0.2 0.0-5.0 % Neutrophils # (Auto) 5.0 1.8-7.7 K/uL Lymphocytes # (Auto) 0.5 L 1.0-4.8 K/uL Monocytes # (Auto) 0.0 L 0.1-1.0 K/uL Eosinophils # (Auto) 0.01 0.00-0.70 K/uL Basophils # (Auto) 0.01 0.00-0.20 K/uL Absolute Immature Granulocyte (auto 0.03 0-1 K/uL Nucleated Red Blood Cells 0.0 0.0-0.19 % White Cell Morphology Comment See comments Chemistry Labs: Test 02/21/24 05:06 Range/Units Sodium Level 147 H 136-145 mmol/L Potassium Level 2.8 *L 3.5-5.1 mmol/L Chloride Level 105 101-111 mmol/L Carbon Dioxide Level 35 H 21-32 mmol/L Blood Urea Nitrogen 15 7-18 mg/dL Creatinine 1.0 0.5-1.0 mg/dL Glomerular Filtration Rate Calc 62 >90 mL/min Random Glucose 133 H 70-105 mg/dL Total Calcium 9.2 8.5-10.1 mg/dL Total Bilirubin 1.5 H 0.2-1.0 mg/dL Direct Bilirubin 0.8 H 0.0-0.3 mg/dL Aspartate Amino Transf (AST/SGOT) 243 H 10-37 U/L Alanine Aminotransferase (ALT/SGPT) 99 H 12-78 U/L Alkaline Phosphatase 142 H 50-136 U/L Total Protein 7.3 6.0-8.3 g/dL Albumin 3.7 3.5-5.0 g/dL Lipase 58671 *H 16-77 U/L DIAGNOSTICS / RADIOLOGY RESULTS: US ABDOMINAL RUQ\E\LTD HISTORY: cholecystitis? abnormal LFTS Abdominal pain N/V? COMPARISON: 10/13/2023 FINDINGS: There is moderate fatty infiltration of the liver. There are no focal liver masses. The liver is enlarged at 19 cm.Gallbladder appears distended to 10 cm. There is mild pericholecystic edema. There are no visible gallstones. These findings could represent acalculous cholecystitis in the appropriate clinical setting. Common duct is normal at 5 mm.. Right kidney is normal with no evidence of mass, hydronephrosis or stone.The pancreas appears normal as well. IMPRESSION: 1. Distended gallbladder with mild wall thickening and with some pericholecystic edema, no stones identified, this could represent acute cholecystitis in the appropriate clinical setting. 2. Moderate hepatic steatosis, the liver is also enlarged at 19 cm. SERVICE 20 REASON: abdominal pain ORDERING PHYSICIAN: OCTAVIO KIMBLE PROCEDURE: ABD PEL W - CT ABDOMEN/PELVIS W/CONTRAST CT ABDOMEN/PELVIS W/CONTRAST HISTORY: Abdominal pain COMPARISON: None TECHNIQUE: Multiple sequential axial images of the abdomen and pelvis were obtained from the dome of the diaphragm through symphysis pubis. Patient was given 100 cc of Omnipaque through intravenous route. Oral contrast was not given. FINDINGS: No pleural effusion is seen bilaterally. There is no evidence of parenchymal disease or pulmonary nodule of the visualized lower lungs. Degenerative changes of the thoracolumbar spine are present. The heart is not enlarged. Liver is enlarged with fatty changes measuring 17.4 cm. gallbladder is distended. The liver, spleen, adrenal glands and pancreas are unremarkable. There is no evidence of hydronephrosis bilaterally. There is right lower pole renal cyst measuring 3.9 x 2.8 cm. There is small left lower pole renal cyst measuring 15 mm. No evidence of renal stone is seen. Fecal material is seen in the colon. There are normal size retroperitoneal and mesenteric lymph nodes. No ascites is seen. No CT evidence of acute appendicitis is seen. There is tiny periumbilical hernia with fat content. Pelvic sidewalls are symmetric bilaterally. Bladder is poorly distended with apparent wall thickening. IMPRESSION: 1. Small bilateral renal cysts. Distended gallbladder. No ascites. PLAN NEURO: Minimize central acting medications as possible. Maintain fall precautions, adequate lighting during the day PULMONARY: Supplemental 02 as needed. Maintain aspiration precautions at all times CARDIOVASCULAR: Follow hemodynamics. Vital signs per facility protocol GI & NUTRITION: Continue with nutritional support. Continue stool softeners and laxatives as needed. KIDNEYS & ELECTROLYTES: Strict monitoring of intake, output and overall fluid balance. Avoid nephrotoxic medications to the extent possible. Medications to be dosed according to renal function. Monitor electrolytes and replace as needed ENDOCRINE: Maintain blood glucose between 100-180 at all times. Hypoglycemia protocol in place INFECTIOUS DISEASE: Trend temperature, WBC and procalcitonin level Follow cultures, deescalate antibiotics as soon as possible. Panculture if new onset fever ONCOLOGY/HEMATOLOGY/COAGULATION: Monitor for s/s of bleeding Monitor hemoglobin, coagulation studies as needed SKIN: Pressure ulcer prevention per facility protocol Specialty mattress ORTHO/REHAB: Continue PT/OT Prophylaxis: Continue GI and DVT prophylaxis Code Status: Full Resuscitation Disposition: TBD Other: Total patient care time exceeds 35 minutes excluding all procedures. SYLVIA SIMEON Feb 21, 2024 10:09
[2024-02-21] MEDS: LACTATED RINGERS 1000ML IV ONE (10:10)
[2024-02-21 10:40] LABS: LACTATE DEHYDROGENASE 324 U/L (81-234); TRIGLYCERIDES 91 mg/dL (30-200)
--- NOTE | 2024-02-21 11:40 | NUR ---
SYLVIA QUINONES AT BEDSIDE.
--- NOTE | 2024-02-21 12:20 | NUR ---
PT ASSISTED OOB AGAIN SO THAT SHE MAY AMBULATE TO THE BR TO VOID. SHE WAS PROVIDED W/2 LARGE GOWNS AND A BELONGINGS BAG FOR HER CLOTHES.
[2024-02-21] MEDS: PANTOPrazole 40MG INJ 80 MG in 0.9%NACL 100ML 100 ML IVP SCH (12:42)
[2024-02-21] MEDS: ZOSYN 3.375GM +NS 50ML IVPB SCH (12:44)
--- NOTE | 2024-02-21 15:35 | NUR ---
DCP: HOME vs SNF Pt lives at home with her Kj [phone]. Pt is on SSD, gets $10.00 in food stamps. Pt reports she is still active and drives, able to complete ADLs on her own. No DME or in home care services. Uses [facility] for rx. Pt hopes to go home at ct. States she may be having surgery and does not know what dc needs would be, should that happen. CM to follow and assist as needed. PCP is Rhiannon Cameron. Addendum: 02/21/24 at 1536 by CORINNE JENKINS Amended: Links added.
--- NOTE | 2024-02-21 15:48 | NUR ---
POTASSIUM RECHECK DRAWN. PENDING RESULTS.
--- NOTE | 2024-02-21 15:49 | NUR ---
GI CONSULT: PENDING GI TO CALL BACK FOR REFERRAL
[2024-02-21] MEDS: PoTASSium chloRIDE 20MEQ/100ML 100 ML IV PRN (18:14)
--- NOTE | 2024-02-21 19:11 | NUR ---
PER NUCLEAR MED TECH-EXAM TO BE DONE TOMORROW
--- NOTE | 2024-02-21 19:35 | NUR ---
REPORT ENDORSED TO ABIODUN SANTOS RN
[2024-02-21] MEDS: metoPROLOL tartRATE 50 MG TAB PO SCH (20:54)
[2024-02-21] MEDS: DRONEDARONE HYDROCHLORIDE 400 MG TABLET PO SCH (21:46)
[2024-02-22] VITALS (10 sets, daily range): BP systolic 107–152; BP diastolic 61–96; PULSE 66–148; RESP 18–20; TEMP 97.6–100; O2SAT 98
[2024-02-22] MEDS: acetaMINOPHEN 325 MG TAB PO PRN (05:56)
[2024-02-22] MEDS: dilTIAZem 120MG SR CAP PO SCH (08:54)
[2024-02-22] MEDS: ENOXAPARIN SODIUM 60 MG/0.6 ML SQ SCH (08:55)
[2024-02-22 09:29] LABS: CREATININE 1.3 mg/dL (0.5-1.0); MAGNESIUM 1.8 mg/dL (1.80-2.40); PHOSPHORUS 3.1 mg/dL (2.5-4.9)
[2024-02-22 09:34] LABS: POTASSIUM 2.9 mmol/L (3.5-5.1)
[2024-02-22 09:39] LABS: BASOPHILS # (AUTO) 0.02 K/uL (0.00-0.20); BASOPHILS % (AUTO) 0.1 % (0.0-5.0); EOSINOPHILS # (AUTO) 0.01 K/uL (0.00-0.70); EOSINOPHILS % (AUTO) 0.1 % (0.0-8.0); HEMATOCRIT 40.1 % (36-48); IMMATURE GRANULOCYTE ABSOLUTE 0.07 K/uL (0-1); LYMPHOCYTES % (AUTO) 7.6 % (21.0-51.0); MEAN CORPUSCULAR HEMOGLOBIN 30.2 pg (27.0-33.0); MEAN CORPUSCULAR HGB CONC 32.9 g/dL (32.0-36.0); MEAN CORPUSCULAR VOLUME 91.8 fL (79-99); MONOCYTES # (AUTO) 0.3 K/uL (0.1-1.0); MONOCYTES % (AUTO) 2.4 % (3.0-13.0); NEUTROPHILS % (AUTO) 89.3 % (40.0-77.0); PLATELET COUNT (AUTO) 216 K/uL (130-400); RED BLOOD CELL COUNT(AUTO) 4.37 MIL/uL (4.00-5.50); RED CELL DISTRIBUTION WIDTH 14.9 % (11.0-15.5); WHITE BLOOD COUNT (AUTO) 13.5 K/uL (4.8-10.8)
--- NOTE | 2024-02-22 10:42 | HMCIMG ---
NM HIDA/HEPATOBILI W/ PHARMACO REASON: Acute cholecystitis COMPARISON: None TECHNIQUE: Routine imaging protocol was performed following administration of 7 mCi technetium 90 9M Choletec. Gallbladder ejection fraction was calculated following IV administration of 2.8 mcg of CCK slow push over 3 minutes. FINDINGS: There is normal hepatic parenchymal uptake. There is prompt excretion into the common duct and gallbladder. There is partial clearing of hepatic activity by the 1 hour image. Time activity curve yields a gallbladder ejection fraction of 71%, within normal limits. IMPRESSION: 1. Normal hepatobiliary scan. 2. Normal gallbladder ejection fraction.
--- NOTE | 2024-02-22 11:00 | NUR ---
FALL PREVENTION/EDUCATION PATIENT EDUCATED TO NOT GET UP FROM BED WITHOUT NOTIFYING FOR ASSISTANCE. EDUCATED ON RISKS FOR FALL AND COMPLICATIONS AFTER IF FALL. PATIENT VOICED UNDERSTANDING. BED LOW IN POSITION, BED ALARM IN PLACE, CALL ABDUL WITHIN REACH, PERSONAL BELONGINGS WITHIN REACH. WILL CONTINUE TO MONITOR.
[2024-02-22 11:44] LABS: INR 1.29 (0.85-1.15); PROTHROMBIN TIME 13.7 SEC (9.6-11.6)
[2024-02-22 11:45] LABS: PARTIAL THROMBOPLASTIN TIME 29.1 SEC (26.3-35.5)
--- NOTE | 2024-02-22 12:00 | EKG ---
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[employer]: LIZBETH : 1955 Requested By: SYLVIA SIMEON Order Number: [id number] Reading MD: Carlitos Clark Measurements Intervals [place] Rate: 122 P: 0 [place]: 0 QRS: -30 QRSD: 92 T: 75 QT: 374 QTc: 532 Interpretive Statements Atrial fibrillation with rapid ventricular response with premature ventricular or aberrantly conducted complexes Left axis deviation Low voltage QRS Inferior infarct , age undetermined Compared to ECG 02/22/2024 11:54:05 Ventricular premature complex(es) now present Low QRS voltage now present Myocardial infarct finding still present Electronically Signed On 02-23-2024 19:31:52 [employer] COACH by Carlitos Clark Please click the below link to view image of tracing.
--- NOTE | 2024-02-22 12:32 | PN ---
[facility] PROGRESS NOTE Date Patient Seen: Feb 22, 2024 Time of Visit: 12:27 Supervising Physician: [Dr. Peralta] Primary Care Physician: [Dr. Codey Cameron] Outpatient Specialists: [ ] Inpatient Consults: [Dr. Mix] PROBLEM LIST: Acute on chronic pancreatitis, susanne's score-1 Acute cholecystitis, pending lap [place] Permanent atrial fibrillation, on anti-arrhythmics s/p ablation Intractable abdominal pain with nausea and vomiting H-pylori, treated Plan: Order CXR, EKG, CBC, PT/INR for preop clearance Order UA, bladder scan at bedside NPO after midnight for lap [place] tomorrow Continue maintenance fluids with LR @ 125ml/hr Continue Zosyn General surgery consult Start protonix drip NPO Zofran prn Pending HIDA scan Trend lipase/LFT's Triglycerides normal Monitor and replace electrolytes, potassium Pain management Resume home meds including antiarrhymics, hold lisinopril, HCTZ and eliquis Start lovenox prophylaxis INTERVAL HISTORY: [Patient has improved with less nausea vomiting and abdominal pain. Her lipase has significantly improved down to 1000. Her triglycerides were unremarkable at 37. Patient had her HIDA scan, pending reading. She was evaluated by General surgery and pending laparoscopic cholecystectomy tomorrow. She admits sensation of urinary retention. Not able to completely void urine. No fever, n/v currently.] REVIEW OF SYSTEMS: 12 point ROS reviewed with patient. Pertinent positives mentioned above. Otherwise negative. PHYSICAL EXAM: GENERAL: alert, weak, awake oriented x 3 HEENT: EOMI, Sclera non icteric, moist mucosa NECK: Supple, no JVD, trachea midline LUNGS: Clear breath sounds bilaterally. No wheezes HEART: Regular rate and rhythm. Normal S1 and S2, without murmurs ABD: Abdomen soft, nontender. Bowel sounds present EXT: No clubbing cyanosis or edema NEURO: Alert and oriented to person, follows commands Vital Signs (last 8hr) Date Time Temp Pulse Resp B/P (MAP) Pulse Ox O2 Delivery O2 Flow Rate FiO2 02/22/24 07:50 97.9 120 18 107/68 96 Room Air 21 02/22/24 06:15 99.0 118 20 151/93 98 Room Air 21 LABS: Hematology Labs: Test 02/22/24 08:48 02/21/24 05:06 Range/Units White Blood Count 13.5 H 4.8-10.8 K/uL Red Blood Count 4.37 4.00-5.50 MIL/uL Hemoglobin 13.2 12.0-16.0 g/dL Hematocrit 40.1 36-48 % Mean Corpuscular Volume 91.8 79-99 fL Mean Corpuscular Hemoglobin 30.2 27.0-33.0 pg Mean Corpuscular Hemoglobin Concent 32.9 32.0-36.0 g/dL Red Cell Distribution Width 14.9 11.0-15.5 % Platelet Count 216 130-400 K/uL Mean Platelet Volume 11.7 H 7.5-10.5 fL Immature Granulocyte % (Auto) 0.5 0-1 % Neutrophils (%) (Auto) 89.3 H 40.0-77.0 % Lymphocytes (%) (Auto) 7.6 L 21.0-51.0 % Monocytes (%) (Auto) 2.4 L 3.0-13.0 % Eosinophils (%) (Auto) 0.1 0.0-8.0 % Basophils (%) (Auto) 0.1 0.0-5.0 % Neutrophils # (Auto) 12.0 H 1.8-7.7 K/uL Lymphocytes # (Auto) 1.0 1.0-4.8 K/uL Monocytes # (Auto) 0.3 0.1-1.0 K/uL Eosinophils # (Auto) 0.01 0.00-0.70 K/uL Basophils # (Auto) 0.02 0.00-0.20 K/uL Absolute Immature Granulocyte (auto 0.07 0-1 K/uL Nucleated Red Blood Cells 0.0 0.0-0.19 % White Cell Morphology Comment See comments Chemistry Labs: Test 02/22/24 08:48 02/21/24 05:06 Range/Units Sodium Level 147 H 136-145 mmol/L Potassium Level 2.9 *L 3.5-5.1 mmol/L Chloride Level 107 101-111 mmol/L Carbon Dioxide Level 34 H 21-32 mmol/L Blood Urea Nitrogen 19 H 7-18 mg/dL Creatinine 1.3 H 0.5-1.0 mg/dL Glomerular Filtration Rate Calc 45 >90 mL/min Random Glucose 99 70-105 mg/dL Total Calcium 8.3 L 8.5-10.1 mg/dL Phosphorus Level 3.1 2.5-4.9 mg/dL Magnesium Level 1.80 1.80-2.40 mg/dL Lipase 1765 *H 16-77 U/L Total Bilirubin 1.5 H 0.2-1.0 mg/dL Direct Bilirubin 0.8 H 0.0-0.3 mg/dL Aspartate Amino Transf (AST/SGOT) 243 H 10-37 U/L Alanine Aminotransferase (ALT/SGPT) 99 H 12-78 U/L Alkaline Phosphatase 142 H 50-136 U/L Lactate Dehydrogenase 324 H 81-234 U/L Total Protein 7.3 6.0-8.3 g/dL Albumin 3.7 3.5-5.0 g/dL Triglycerides Level 91 30-200 mg/dL Coagulation Labs: Test 02/22/24 08:48 Range/Units Prothrombin Time 13.7 H 9.6-11.6 SEC Prothromb Time International Ratio 1.29 H 0.85-1.15 Activated Partial Thromboplast Time 29.1 26.3-35.5 SEC DIAGNOSTICS / RADIOLOGY RESULTS: NM HIDA/HEPATOBILI W/ PHARMACO REASON: Acute cholecystitis COMPARISON: None TECHNIQUE: Routine imaging protocol was performed following administration of 7 mCi technetium 90 9M Choletec. Gallbladder ejection fraction was calculated following IV administration of 2.8 mcg of CCK slow push over 3 minutes. FINDINGS: There is normal hepatic parenchymal uptake. There is prompt excretion into the common duct and gallbladder. There is partial clearing of hepatic activity by the 1 hour image. Time activity curve yields a gallbladder ejection fraction of 71%, within normal limits. IMPRESSION: 1. Normal hepatobiliary scan. 2. Normal gallbladder ejection fraction. PLAN NEURO: Minimize central acting medications as possible. Maintain fall precautions, adequate lighting during the day PULMONARY: Supplemental 02 as needed. Maintain aspiration precautions at all times CARDIOVASCULAR: Follow hemodynamics. Vital signs per facility protocol GI & NUTRITION: Continue with nutritional support. Continue stool softeners and laxatives as needed. KIDNEYS & ELECTROLYTES: Strict monitoring of intake, output and overall fluid balance. Avoid nephrotoxic medications to the extent possible. Medications to be dosed according to renal function. Monitor electrolytes and replace as needed ENDOCRINE: Maintain blood glucose between 100-180 at all times. Hypoglycemia protocol in place INFECTIOUS DISEASE: Trend temperature, WBC and procalcitonin level Follow cultures, deescalate antibiotics as soon as possible. Panculture if new onset fever ONCOLOGY/HEMATOLOGY/COAGULATION: Monitor for s/s of bleeding Monitor hemoglobin, coagulation studies as needed SKIN: Pressure ulcer prevention per facility protocol Specialty mattress ORTHO/REHAB: Continue PT/OT Prophylaxis: Continue GI and DVT prophylaxis Code Status: Full Resuscitation Disposition: TBD Other: Total patient care time exceeds 35 minutes excluding all procedures. SYLVIA SIMEON Feb 22, 2024 12:32
[2024-02-22] MEDS: PoTASSium chl 10% ELIXIR 20MEQ 20 MEQ/15 ML UDCUP PO PRN (12:34)
--- NOTE | 2024-02-22 12:51 | HMCIMG ---
CHEST 1VW REASON: pre-op clearance COMPARISON: None. FINDINGS: There is moderate cardiomegaly. There is no pulmonary vascular congestion. Lungs are clear. Mediastinum and bony thorax appear unremarkable. IMPRESSION: 1. Moderate cardiomegaly. 2. No acute finding.
[2024-02-22] MEDS ORDERED: COMPOUND IV REFRIGERATED 1 EACH IVSOLN MISC PRN (14:30)
[2024-02-22] MEDS ORDERED: COMPOUND IV MISC 1 EACH IVSOLN MISC PRN (14:30)
--- NOTE | 2024-02-22 19:54 | NUR ---
Rapid heart rate Informed CYLINDER HEAD ASSEMBLER Elizabethog Shoaib regarding heart rate of 150's, patient currently laying in bed comfortably, denies having any shortness of breath or chest pain. CYLINDER HEAD ASSEMBLER stated to go ahead and order lopressor 2.5mg IV q6 hrs prn for heart rate greater than 110. Primary nurse informed of orders that were received.
[2024-02-22] MEDS: PoTASSium chloRIDE 20MEQ ER 20 MEQ ERTAB PO PRN (20:22)
[2024-02-22] MEDS: metoPROLOL tartRATE 1 MG/ML 5ML VIAL IV PRN (20:47)
[2024-02-22 21:04] LABS: APPEARANCE,URINE CLOUDY (CLEAR); BILIRUBIN,URINE NEGATIVE (NEGATIVE); COLOR,URINE YELLOW (YELLOW); GLUCOSE, URINE (UA) NEGATIVE (NEGATIVE); KETONES,URINE NEGATIVE (NEGATIVE); LEUKOCYTE ESTERASE ,URINE NEGATIVE Leu/uL (NEGATIVE); NITRATE,URINE NEGATIVE (NEGATIVE); PH,URINE 6.5 (5.0-8.0); PROTEIN,URINE 30 mg/dL (NEGATIVE); UROBILINOGEN,URINE 0.2 mg/dL (0.2-1.0)
[2024-02-22 21:08] LABS: ADD UA MICROSCOPIC YES
[2024-02-22 21:10] LABS: BACTERIA,URINE FEW /HPF (None Seen); MUCUS,URINE RARE LPF (None Seen); NON-SQUAMOUS EPITHELIAL CELL 2 /HPF (0-2); SQUAMOUS EPITHELIAL CELL,UR FEW /HPF (0-2); WBC CLUMP FEW /HPF (0-1)
--- NOTE | 2024-02-22 23:26 | NUR ---
2304 FOLLOW UP TO PATIENT'S HR. TRANSPORTATION COORDINATOR REPORTS THAT SHE CONTINUES WITH HR 140'S-150'S AT TIMES DOWN INTO 130'S, BUT NOT SUSTAINING THERE. DISCUSSED WITH CHARGE NURSE INTERVENTIONS OF COMPLETING POTASSIUM REPLACEMENT AND GIVEN METROPROLOL WITHOUT SEEING SIGNIFICANT CHANGE. PAGED RHINA MUNGUIA ACOUSTIC INTELLIGENCE SPECIALIST TO NOTIFY. 2326 INFORMED HIM OF ABOVE. RECEIVED ORDERS TO TRANSFER TO PCCU AND START AMIODORONE DRIP. CONTACTED Felecia SERVIN RN CHARGE NURSE, WHO OBTAINED A BED ASSIGNMENT FROM [employer] FOR ROOM 204 AND CONTACT NI FOR REPORT. NOTIFIED PATIENT OF NEW ORDERS AND EXPLAINED PURPOSE. 233 CONTACTED NI. REPORT GIVEN. TOOK PATIENT VIA BED. 2340 ARRIVED TO ROOM 204. NI THERE TO RECEIVE PATIENT.
[2024-02-23] VITALS (10 sets, daily range): BP systolic 122–139; BP diastolic 71–99; PULSE 129–144; RESP 18–22; TEMP 96.8–98.7; O2SAT 96–97
[2024-02-23] MEDS: AMIOdarone 900MG VIAL 150 MG in DEXTROSE 5%-WATER 100 ML IV SCH (00:06)
[2024-02-23] MEDS: AMIOdarone 900MG VIAL 540 MG in DEXTROSE 5%-WATER 300 ML IV STA (00:19)
[2024-02-23] MEDS: AMIOdarone 900MG VIAL 360 MG in DEXTROSE 5%-WATER 200 ML IV SCH (00:19)
--- NOTE | 2024-02-23 06:54 | NUR ---
MD ROUNDS DR SNIDER IN TO SEE PATIENT THIS MORNING. HE INFORMED THE PATIENT THAT HER SURGERY WAS CANCELLED FOR TODAY.
[2024-02-23 07:04] LABS: CREATININE 1.2 mg/dL (0.5-1.0)
[2024-02-23] MEDS: PANTOPrazole 40 MG TAB DR PO SCH (07:54)
--- NOTE | 2024-02-23 11:50 | CONS ---
CONSULTATION NOTE Date of Service: Feb 23, 2024 Reason for Consultation: [ ] Requesting Physician: [ ] HISTORY OF PRESENT ILLNESS: [ Patient was then having right upper quadrant pain for months presented to the hospital because of worsening epigastric and right upper quadrant pain. Associated with the pain with some nausea and some emesis. Pain progressively got worse to the point that patient was having difficulty tolerating diet that she came in. A CT scan was done on arrival. I personally reviewed the CT scan. Patient has a distended gallbladder with stones within it. On patient's lab work she appears to have elevation of some of the pancreatic enzymes suggestive of biliary pancreatitis. Unfortunately overnight patient developed AFib with RVR and was transferred to PCU for an amiodarone drip] REVIEW OF SYSTEMS CONSTITUTIONAL: Denies fever, chills, or fatigue. HEAD/FACE: No signs of trauma. EENT: Denies eye pain, blurred vision, double vision, or light sensitivity. RESPIRATORY: Denies shortness of breath, cough, wheezing CARDIOVASCULAR: Denies chest pain, palpitation, syncope GASTROINTESTINAL/ABDOMINAL: Abdominal pain GENITOURINARY: Denies dysuria or hematuria. MUSCULOSKELETAL: Denies joint pain, tenderness, or trauma. INTEGUMENTARY: Denies rash or itchiness NEUROLOGICAL/PSYCH: Denies anxiety, depression, heat or cold intolerance. PAST MEDICAL HISTORY: [ Morbid obesity, hypertension, AFib, COPD, obstructive sleep apnea ] PAST SURGICAL HISTORY: [ C-sections ] PAST SOCIAL HISTORY: [ Patient denies any illicit drug use ] FAMILY HISTORY: [ Noncontributory] Coded Allergies: Latex, Natural Rubber (Verified Allergy, Unknown, 12/23/18) codeine (Verified Allergy, Unknown, 12/23/18) PHYSICAL EXAM PHYSICAL EXAM EYES: Sclera white HENT: Oral nasal mucosa pink and moist NECK: Supple, . LUNGS: Unlabored CARDIOVASCULAR: Regular rate and rhythm ABDOMEN: Tender to palpation in right upper quadrant. Positive Rangel sign. No rebound. No peritoneal signs. CENTRAL NERVOUS SYSTEM: Awake, alert, oriented x3 SKIN: No rashes, no swelling. LYMPHATICS: No peripheral lymphadenopathy MUSCULOSKELETAL: Motor and sensory function grossly intact EXTREMITIES: No cyanosis or clubbing BACK: No deformity, no pressure ulcer. GENITOURINARY: No CVA tenderness. Vital Sign (Last 24 Hours) 02/23/24 02/23/24 07:53 08:30 Temp 98.8 Pulse 130 Resp 18 B/P (MAP) 123/71 Pulse Ox 97 O2 Delivery Room Air* O2 Flow Rate 0 FiO2 21 Intake & Output (last 24hrs) 02/22/24 02/22/24 02/23/24 15:00 23:00 07:00 Intake Total 120 ml Balance 120 ml LABS: Laboratory: Test 02/23/24 06:30 02/23/24 04:46 02/22/24 20:00 02/22/24 08:48 Range/Units Sodium Level 143 136-145 mmol/L Potassium Level 3.0 *L 3.5-5.1 mmol/L Chloride Level 105 101-111 mmol/L Carbon Dioxide Level 33 H 21-32 mmol/L Blood Urea Nitrogen 14 7-18 mg/dL Creatinine 1.2 H 0.5-1.0 mg/dL Glomerular Filtration Rate Calc 50 >90 mL/min Random Glucose 104 70-105 mg/dL Total Calcium 8.4 L 8.5-10.1 mg/dL B-Type Natriuretic Peptide 448 H 0-100 pg/mL Urine Color YELLOW YELLOW Urine Appearance CLOUDY H CLEAR Urine pH 6.5 5.0-8.0 Urine Specific [place] 1.021 1.001-1.031 Urine Protein 30 H NEGATIVE mg/dL Urine Glucose (UA) NEGATIVE NEGATIVE mg/dL Urine Ketones NEGATIVE NEGATIVE mg/dL Urine Occult Blood +- (TRACE) H NEGATIVE Urine Nitrate NEGATIVE NEGATIVE Urine Bilirubin NEGATIVE NEGATIVE mg/dL Urine Urobilinogen 0.2 0.2-1.0 mg/dL Urine Leukocyte Esterase NEGATIVE NEGATIVE [place]/uL Urine RBC 2-5 H 0-1 /HPF Urine WBC 11-25 H 0-1 /HPF Urine WBC Clumps (Auto) FEW 0-1 /HPF Urine Squamous Epithelial Cells FEW 0-2 /HPF Urine Non-Squamous Epithelial Cells 2 0-2 /HPF Urine Bacteria FEW None Seen /HPF Urine Hyaline Casts 2-5 H 0-1 /LPF /LPF White Blood Count 13.5 H 4.8-10.8 K/uL Red Blood Count 4.37 4.00-5.50 MIL/uL Hemoglobin 13.2 12.0-16.0 g/dL Hematocrit 40.1 36-48 % Mean Corpuscular Volume 91.8 79-99 fL Mean Corpuscular Hemoglobin 30.2 27.0-33.0 pg Mean Corpuscular Hemoglobin Concent 32.9 32.0-36.0 g/dL Red Cell Distribution Width 14.9 11.0-15.5 % Platelet Count 216 130-400 K/uL Mean Platelet Volume 11.7 H 7.5-10.5 fL Immature Granulocyte % (Auto) 0.5 0-1 % Neutrophils (%) (Auto) 89.3 H 40.0-77.0 % Lymphocytes (%) (Auto) 7.6 L 21.0-51.0 % Monocytes (%) (Auto) 2.4 L 3.0-13.0 % Eosinophils (%) (Auto) 0.1 0.0-8.0 % Basophils (%) (Auto) 0.1 0.0-5.0 % Neutrophils # (Auto) 12.0 H 1.8-7.7 K/uL Lymphocytes # (Auto) 1.0 1.0-4.8 K/uL Monocytes # (Auto) 0.3 0.1-1.0 K/uL Eosinophils # (Auto) 0.01 0.00-0.70 K/uL Basophils # (Auto) 0.02 0.00-0.20 K/uL Absolute Immature Granulocyte (auto 0.07 0-1 K/uL Nucleated Red Blood Cells 0.0 0.0-0.19 % Prothrombin Time 13.7 H 9.6-11.6 SEC Prothromb Time International Ratio 1.29 H 0.85-1.15 Activated Partial Thromboplast Time 29.1 26.3-35.5 SEC Phosphorus Level 3.1 2.5-4.9 mg/dL Magnesium Level 1.80 1.80-2.40 mg/dL Lipase 1765 *H 16-77 U/L DIAGNOSTICS / RADIOLOGY: [ ] ASSESSMENT: [Biliary pancreatitis ] PLAN: [ Once patient's AFib has been stabilized then we will plan on a laparoscopic cholecystectomy with intraoperative cholangiogram. Risks associated with the procedure not limited to infection, bleeding, injury to surrounding structures has been explained to patient and she indicates she understands and agrees. ] SPEEDY SNIDER MD Feb 23, 2024 11:50
[2024-02-23] MEDS: LACTATED RINGERS 1000ML 1,572 ML IV ONE (13:30)
--- NOTE | 2024-02-23 13:38 | PN ---
[facility] PROGRESS NOTE Date Patient Seen: Feb 23, 2024 Time of Visit: 13:38 Supervising Physician: Dr. Peralta Primary Care Physician: Dr. Codey Cameron Outpatient Specialists: Inpatient Consults: Dr. Mix, Dr. Boone PROBLEM LIST: Acute on chronic pancreatitis, LAURA's score-1 (1% predicted mortality)--- 48 hour LAURA 2pts (1% predicted mortality) Acute cholecystitis Atrial fibrillation, with RVR- on anti-arrhythmics, no AC, history of ablation Intractable abdominal pain with nausea and vomiting H-pylori, treated Morbid obesity BMI 56 POOJA with home CPAP Hx. HTN, POOJA, Afib, H pylori Plan: Had onset of afib with RVR IV bolus Up antibiotics therapy Amiodarone drip Continue maintenance fluids with LR General surgery consult Start protonix drip NPO Zofran prn HIDA scan with normal EF of GB. Trend lipase/LFT's Triglycerides normal Monitor and replace electrolytes, potassium Pain management Resume home meds including antiarrhymics, hold lisinopril, HCTZ and eliquis Heparin drip INTERVAL HISTORY: [Patient has improved with less nausea vomiting and abdominal pain. Her lipase has significantly improved down to 1000. Her triglycerides were unremarkable at 37. Patient had her HIDA scan, pending reading. She was evaluated by General surgery and pending laparoscopic cholecystectomy tomorrow. She admits sensation of urinary retention. Not able to completely void urine. No fever, n/v curr ently.] 02/22 patient has an episode of AFib RVR overnight and was transferred into PCU for amiodarone drip per protocol. This morning patient remains with AFib RVR up to 140 despite being on amiodarone drip, diltiazem and beta-lanny. Patient is clinically diaphoretic not in acute distress not having any chest pain. Her lab this morning with WBC of 13.5 up from 5.6 her neutrophil is 89. Hemoglobin is within normal limits. Potassium otherwise is low at 3.0. Check magnesium. bicarb is 33 BUN 14 creatinine is 1.2 this is down from 1.3 yesterday. BNP is 400. Her lipase is down to 1700 from 00845. Check LDH to calculate LAURA's criteria. No abdominal pain at this time. Patient is hypovolemic, we will give her 30 cc/ kilogram of IV fluid now. Given intra-abdominal infection, we will up the antibiotic coverage from Zosyn to meropenem. We will need to send blood cultures as well. Continue to follow cultures. Gen surg has been consulted for possible cholecystitis. TSH is normal. Given AFib RVR, we can start patient on heparin drip per protocol. Patient has been seen by Dr. Bunn as outpatient on [place], will consult Cardiology. Home CPAP at night and nap time. Still ill, continue PCCU. REVIEW OF SYSTEMS: 12 point ROS reviewed with patient. Pertinent positives mentioned above. Otherwise negative. PHYSICAL EXAM: GENERAL: alert, weak, awake oriented x 3 HEENT: EOMI, Sclera non icteric, moist mucosa NECK: Supple, no JVD, trachea midline LUNGS: Clear breath sounds bilaterally. No wheezes HEART: Regular rate and rhythm. Normal S1 and S2, without murmurs ABD: Abdomen soft, nontender. Bowel sounds present EXT: No clubbing cyanosis or edema NEURO: Alert and oriented to person, follows commands Vital Signs (last 8hr) Date Time Temp Pulse Resp B/P (MAP) Pulse Ox O2 Delivery O2 Flow Rate FiO2 02/23/24 13:17 98.1 141 20 127/77 98 Room Air 02/23/24 08:30 97 Room Air* 0 21 02/23/24 07:53 130 123/71 02/23/24 07:53 98.8 130 18 132/82 97 Room Air LABS: Hematology Labs: Test 02/22/24 08:48 Range/Units White Blood Count 13.5 H 4.8-10.8 K/uL Red Blood Count 4.37 4.00-5.50 MIL/uL Hemoglobin 13.2 12.0-16.0 g/dL Hematocrit 40.1 36-48 % Mean Corpuscular Volume 91.8 79-99 fL Mean Corpuscular Hemoglobin 30.2 27.0-33.0 pg Mean Corpuscular Hemoglobin Concent 32.9 32.0-36.0 g/dL Red Cell Distribution Width 14.9 11.0-15.5 % Platelet Count 216 130-400 K/uL Mean Platelet Volume 11.7 H 7.5-10.5 fL Immature Granulocyte % (Auto) 0.5 0-1 % Neutrophils (%) (Auto) 89.3 H 40.0-77.0 % Lymphocytes (%) (Auto) 7.6 L 21.0-51.0 % Monocytes (%) (Auto) 2.4 L 3.0-13.0 % Eosinophils (%) (Auto) 0.1 0.0-8.0 % Basophils (%) (Auto) 0.1 0.0-5.0 % Neutrophils # (Auto) 12.0 H 1.8-7.7 K/uL Lymphocytes # (Auto) 1.0 1.0-4.8 K/uL Monocytes # (Auto) 0.3 0.1-1.0 K/uL Eosinophils # (Auto) 0.01 0.00-0.70 K/uL Basophils # (Auto) 0.02 0.00-0.20 K/uL Absolute Immature Granulocyte (auto 0.07 0-1 K/uL Nucleated Red Blood Cells 0.0 0.0-0.19 % Chemistry Labs: Test 02/23/24 06:30 02/23/24 04:46 02/22/24 08:48 Range/Units Sodium Level 143 136-145 mmol/L Potassium Level 3.0 *L 3.5-5.1 mmol/L Chloride Level 105 101-111 mmol/L Carbon Dioxide Level 33 H 21-32 mmol/L Blood Urea Nitrogen 14 7-18 mg/dL Creatinine 1.2 H 0.5-1.0 mg/dL Glomerular Filtration Rate Calc 50 >90 mL/min Random Glucose 104 70-105 mg/dL Total Calcium 8.4 L 8.5-10.1 mg/dL B-Type Natriuretic Peptide 448 H 0-100 pg/mL Phosphorus Level 3.1 2.5-4.9 mg/dL Magnesium Level 1.80 1.80-2.40 mg/dL Lipase 1765 *H 16-77 U/L Coagulation Labs: Test 02/22/24 08:48 Range/Units Prothrombin Time 13.7 H 9.6-11.6 SEC Prothromb Time International Ratio 1.29 H 0.85-1.15 Activated Partial Thromboplast Time 29.1 26.3-35.5 SEC DIAGNOSTICS / RADIOLOGY RESULTS: [ ] PLAN NEURO: Minimize central acting medications as possible. Maintain fall precautions, adequate lighting during the day PULMONARY: Supplemental 02 as needed. Maintain aspiration precautions at all times CARDIOVASCULAR: Follow hemodynamics. Vital signs per facility protocol Amiodarone IVF BB Multag per cardiology GI & NUTRITION: Continue with nutritional support. Continue stool softeners and laxatives as needed. KIDNEYS & ELECTROLYTES: Strict monitoring of intake, output and overall fluid balance. Avoid nephrotoxic medications to the extent possible. Medications to be dosed according to renal function. Monitor electrolytes and replace as needed ENDOCRINE: Maintain blood glucose between 100-180 at all times. Hypoglycemia protocol in place INFECTIOUS DISEASE: Trend temperature, WBC and procalcitonin level Follow cultures, deescalate antibiotics as soon as possible. Panculture if new onset fever Zosyn 02/20-02/22 Meropenem 02/22- ONCOLOGY/HEMATOLOGY/COAGULATION: Monitor for s/s of bleeding Monitor hemoglobin, coagulation studies as needed SKIN: Pressure ulcer prevention per facility protocol Specialty mattress ORTHO/REHAB: Continue PT/OT Prophylaxis: Continue GI and DVT prophylaxis Code Status: Full Resuscitation Disposition: TBD Other: Total patient care time exceeds 35 minutes excluding all procedures. PATRICIA SHARP [facility] Feb 23, 2024 13:38
[2024-02-23 13:51] LABS: ABG HCO3 27.6 mmol/L (21.0-28.0); ABG OXYGEN SATURATION 94.8 % (94.0-98.0); ABG PCO2 38 mmHg (32-45); ABG PH 7.478 (7.350-7.450); CARBON MONOXIDE 0.9 % (0.5-1.5); DEVICE COMMENT LR TANYA RN; HHb 5.1; PO2, ARTERIAL BG 69.9 mmHg (83.0-108.0); VENT MODE, BG ROOM AIR (ROOM AIR)
[2024-02-23] MEDS ORDERED: COMPOUND IV MISC 1 EACH IVSOLN MISC PRN (14:30)
[2024-02-23 15:16] LABS: BASOPHILS # (AUTO) 0.03 K/uL (0.00-0.20); BASOPHILS % (AUTO) 0.2 % (0.0-5.0); EOSINOPHILS # (AUTO) 0.05 K/uL (0.00-0.70); EOSINOPHILS % (AUTO) 0.3 % (0.0-8.0); HEMATOCRIT 39.1 % (36-48); IMMATURE GRANULOCYTE ABSOLUTE 0.09 K/uL (0-1); LYMPHOCYTES # (AUTO) 1.8 K/uL (1.0-4.8); LYMPHOCYTES % (AUTO) 11.4 % (21.0-51.0); MEAN CORPUSCULAR HEMOGLOBIN 30.8 pg (27.0-33.0); MEAN CORPUSCULAR HGB CONC 33.5 g/dL (32.0-36.0); MEAN CORPUSCULAR VOLUME 91.8 fL (79-99); MONOCYTES # (AUTO) 0.7 K/uL (0.1-1.0); MONOCYTES % (AUTO) 4.6 % (3.0-13.0); NEUTROPHILS # (AUTO) 13.2 K/uL (1.8-7.7); NEUTROPHILS % (AUTO) 82.9 % (40.0-77.0); PLATELET COUNT (AUTO) 165 K/uL (130-400); RED BLOOD CELL COUNT(AUTO) 4.26 MIL/uL (4.00-5.50); RED CELL DISTRIBUTION WIDTH 14.6 % (11.0-15.5); WHITE BLOOD COUNT (AUTO) 15.9 K/uL (4.8-10.8)
[2024-02-23] MEDS: MEROPENEM 1 GM in 0.9%NACL 100ML 100 ML IVPB SCH (16:15)
[2024-02-23] MEDS: HEParin 25,000 UNITS/250ML D5W 250 ML IV SCH (16:51)
[2024-02-23 16:53] LABS: ALBUMIN 2.6 g/dL (3.5-5.0); BILIRUBIN,DIRECT 0.4 mg/dL (0.0-0.3); BILIRUBIN,TOTAL 1.1 mg/dL (0.2-1.0); MAGNESIUM 1.8 mg/dL (1.80-2.40); TOTAL PROTEIN, SERUM 6.2 g/dL (6.0-8.3)
[2024-02-23] MEDS: HEParin 5,000 UNIT VIAL IV ONE (17:24)
--- NOTE | 2024-02-23 17:24 | CONS ---
[facility] CARDIOLOGY CONSULTATION REPORT Cardiology consultation note dictated for Richard Morales MD Primary padder cushion: Tyrese Elmore MD Date Patient Seen: Feb 23, 2024 Requesting Physician: Ela Urbano CNP Reason for Consultation: AFib with RVR History of Present Illness: This is a 68-year-old female with a past medical history hypertension, paroxysmal atrial fibrillation status post pulmonary vein isolation on 08/24/2022, chronic anticoagulation with Eliquis, history of tachycardia mediated cardiomyopathy, 2D echo on 03/16/2022 with an EF of 35-40% and stage III diastolic dysfunction, loop recorder implantation, CT Heart Service on 05/21/2021 which revealed a calcium score of 108 consistent with moderate atherosclerotic plaque, Lexiscan stress test on 04/29/2023 with small size, mild intensity, fully reversible perfusion defect seen in the apical inferior and inferolateral ayon, no regional wall motion abnormalities, no obvious TID, study indicates a moderate risk for cardiovascular events, POOJA on CPAP, obesity, and history of acute pancreatitis with secondary inflammation of the gallbladder presented to the ED with complaints of nausea, vomiting, and abdominal pain of one day duration. The patient was diagnosed [place] [address]. She was also hypokalemic on admission with a potassium level 2.8. HIDA scan on 02/21 was normal. She has continued with leukocytosis with WBC of 15.9. Cardiology was consulted for AFib with RVR. The patient's hr has remained in the 130's-140's despite being on Diltiazem CD 240 mg daily, Metoprolol tartrate 100 mg b.i.d. and on an Amiodarone drip. General surgery plans for laparoscopic cholecystectomy with an intraoperative cholangiogram if heart rate is controlled. The patient is not in any acute distress, she denies chest pain, chest pressure, palpitations, dizziness, nausea or vomiting. She admits to shortness a breath. Potassium this morning was 3.0 with recheck of 3.7 and a magnesium of 1.8. TSH normal at 2.99. BNP 448. Last chest x-ray on 02/22/2024 demonstrated opacification to the bases bilaterally. Past Medical History: As per HPI in summarize below Past Surgical History: Bilateral total knee arthroplasty x4 Family History: The patient's father had an DC at the age of 57. Social History: The patient lives with family. Habits: The patient denies alcohol, tobacco, or illicit drug use. Home Meds: Multaq 400 mg b.i.d. Diltiazem 240 mg daily Metoprolol tartrate 100 mg b.i.d. Eliquis 5 mg b.i.d. Lisinopril 10 mg daily Hydrochlorothiazide 12.5 mg daily Current Meds: Current Medications Medications Dose Ordered Sig/Umer Start Time Stop Time Status Last Admin Lactated Ringer's 1,000 ml @ 125 mls/hr Q8H 02/21/24 06:30 03/22/24 06:29 02/22/24 22:22 Acetaminophen 650 mg Q6H PRN 02/21/24 06:30 03/22/24 06:29 02/22/24 05:56 Acetaminophen 650 mg Q6H PRN 02/21/24 06:30 03/22/24 06:29 Acetaminophen/ Hydrocodone Bitart 1 tab Q6H PRN 02/21/24 06:30 02/26/24 06:29 02/23/24 11:10 Ondansetron HCl 4 mg Q6H PRN 02/21/24 06:30 03/22/24 06:29 Hydralazine HCl 10 mg Q6H PRN 02/21/24 06:30 03/22/24 06:29 Diltiazem HCl 240 mg DAILY 02/22/24 09:00 03/23/24 08:59 02/23/24 07:53 Metoprolol Tartrate 100 mg BID 02/21/24 21:00 03/22/24 20:59 02/23/24 04:37 Potassium Chloride 100 ml @ 50 mls/hr AD PRN 02/21/24 18:00 03/22/24 17:59 02/22/24 22:30 Potassium Chloride 20 meq AD PRN 02/22/24 11:30 03/23/24 11:29 02/23/24 15:38 Potassium Chloride 20 meq AD PRN 02/22/24 11:30 03/23/24 11:29 02/23/24 11:05 Metoprolol Tartrate 2.5 mg Q6H PRN 02/22/24 20:00 03/23/24 19:59 02/23/24 14:34 Amiodarone HCl 360 mg/Dextrose 207.2 ml @ 33.3 mls/hr AD 02/23/24 00:00 03/24/24 00:00 02/23/24 00:19 Amiodarone HCl 540 mg/Dextrose 310.8 ml @ 16.7 mls/hr [id number] STAT 02/22/24 23:35 02/23/24 18:11 02/23/24 06:28 Meropenem 1 gm/ Sodium Chloride 100 ml @ 33.333 mls/ hr Q8H 02/23/24 13:30 03/04/24 13:29 02/23/24 16:15 Heparin Sodium/ Dextrose 250 ml @ 0 mls/hr PROTOCOL 02/23/24 14:00 03/24/24 13:59 02/23/24 16:51 Pantoprazole Sodium 40 mg DAILY 02/24/24 09:00 03/25/24 08:59 Heparin Sodium (Porcine) 11,000 unit ONCE ONCE 02/23/24 17:00 02/23/24 17:01 Review of Systems: CONST: No fever, fatigue, or weight changes. EYES: No recent vision problems. ENT: No congestion, ear pain, or sore throat. C/V: No chest pain, palpitations, or edema. RESP: No cough, congestion, wheezing. Admits to shortness of breath. GI: No nausea, vomiting, constipation, or diarrhea.Admits to abdominal discomfort. : No incontinence or dysuria. SKIN: No rash. NEURO: No headache, focal numbness or weakness, dizziness, or seizures. PSYCH: No depression or anxiety. HEME: No abnormal bruising or bleeding. LYMPH: No swollen glands. Physical Examination: GENERAL: No acute distress. HEAD: Normal with no signs of head trauma. EYES: PERRLA, EOMI, conjunctiva and sclera normal. ENT: Hearing grossly intact, normal oropharynx. NECK: Supple without JVD. There is no tenderness, lymphadenopathy, or masses. No thyromegaly. Normal carotid upstrokes without bruits. LUNGS: Rales to bases bilaterally. . HEART: Irregularly irregular rate and rhythm. Normal S1 and S2 without murmurs, gallop or rub. VASC: Bilateral DP pulses +2. ABD: Bowel sounds normal, soft, nontender, no masses, no organomegaly. No audible bruits. : Urine is karissa colored. LYMPH: No lymphadenopathy noted. EXT: No clubbing, cyanosis or edema. SKIN: No rashes or lesions noted. NEURO: Awake, alert, and oriented x3. No focal sensory or strength deficits noted. Vital Signs (last 8hr) Date Time Temp Pulse Resp B/P (MAP) Pulse Ox O2 Delivery O2 Flow Rate FiO2 02/23/24 14:34 135 02/23/24 13:17 98.1 141 20 127/77 98 Room Air Laboratory: Hematology Labs: Test 02/23/24 15:00 Range/Units White Blood Count 15.9 H 4.8-10.8 K/uL Red Blood Count 4.26 4.00-5.50 MIL/uL Hemoglobin 13.1 12.0-16.0 g/dL Hematocrit 39.1 36-48 % Mean Corpuscular Volume 91.8 79-99 fL Mean Corpuscular Hemoglobin 30.8 27.0-33.0 pg Mean Corpuscular Hemoglobin Concent 33.5 32.0-36.0 g/dL Red Cell Distribution Width 14.6 11.0-15.5 % Platelet Count 165 130-400 K/uL Mean Platelet Volume 11.5 H 7.5-10.5 fL Immature Granulocyte % (Auto) 0.6 0-1 % Neutrophils (%) (Auto) 82.9 H 40.0-77.0 % Lymphocytes (%) (Auto) 11.4 L 21.0-51.0 % Monocytes (%) (Auto) 4.6 3.0-13.0 % Eosinophils (%) (Auto) 0.3 0.0-8.0 % Basophils (%) (Auto) 0.2 0.0-5.0 % Neutrophils # (Auto) 13.2 H 1.8-7.7 K/uL Lymphocytes # (Auto) 1.8 1.0-4.8 K/uL Monocytes # (Auto) 0.7 0.1-1.0 K/uL Eosinophils # (Auto) 0.05 0.00-0.70 K/uL Basophils # (Auto) 0.03 0.00-0.20 K/uL Absolute Immature Granulocyte (auto 0.09 0-1 K/uL Nucleated Red Blood Cells 0.0 0.0-0.19 % Chemistry Labs: Test 02/23/24 14:20 02/23/24 06:30 02/23/24 04:46 02/22/24 08:48 Range/Units Magnesium Level 1.80 1.80-2.40 mg/dL Total Bilirubin 1.1 H 0.2-1.0 mg/dL Direct Bilirubin 0.4 H 0.0-0.3 mg/dL Aspartate Amino Transf (AST/SGOT) 39 H 10-37 U/L Alanine Aminotransferase (ALT/SGPT) 97 H 12-78 U/L Alkaline Phosphatase 98 50-136 U/L Total Protein 6.2 6.0-8.3 g/dL Albumin 2.6 L 3.5-5.0 g/dL Sodium Level 143 136-145 mmol/L Potassium Level 3.0 *L 3.5-5.1 mmol/L Chloride Level 105 101-111 mmol/L Carbon Dioxide Level 33 H 21-32 mmol/L Blood Urea Nitrogen 14 7-18 mg/dL Creatinine 1.2 H 0.5-1.0 mg/dL Glomerular Filtration Rate Calc 50 >90 mL/min Random Glucose 104 70-105 mg/dL Total Calcium 8.4 L 8.5-10.1 mg/dL Lactate Dehydrogenase 218 81-234 U/L Thyroid Stimulating Hormone (TSH) 2.99 # 0.36-3.74 uIU/mL B-Type Natriuretic Peptide 448 H 0-100 pg/mL Phosphorus Level 3.1 2.5-4.9 mg/dL Lipase 1765 *H 16-77 U/L Coagulation Labs: Test 02/23/24 14:50 02/22/24 08:48 Range/Units Activated Partial Thromboplast Time 29.3 26.3-35.5 SEC Prothrombin Time 13.7 H 9.6-11.6 SEC Prothromb Time International Ratio 1.29 H 0.85-1.15 Diagnostics / Radiology: Impression and Plan: Atrial fibrillation with RVR Chronic anticoagulation with Eliquis Biliary pancreatitis, Lipase 27605, 1765 Transaminitis Leukocytosis Hypokalemia Hypertension Lexiscan stress test on 04/29/2023 with small size, mild intensity, fully r eversible perfusion defect seen in the apical inferior and inferolateral ayon, no regional wall motion abnormalities, no obvious TID, study indicates a moderate risk for cardiovascular events History of tachycardia mediated cardiomyopathy 2D echo on 03/16/2022 with an EF of 35-40% and stage III diastolic dysfunction Loop recorder implantation CT Heart Service on 05/21/2021 which revealed a calcium score of 108 consistent with moderate atherosclerotic plaque Lexiscan stress test on 04/29/2023 with small size, mild intensity, fully reversible perfusion defect seen in the apical inferior and inferolateral ayon, no regional wall motion abnormalities, no obvious TID, study indicates a moderate risk for cardiovascular events POOJA on CPAP Morbid obesity Hx of acute pancreatitis with secondary inflammation of the gallbladder Hx of paroxysmal atrial fibrillation status post pulmonary vein isolation on 08/24/2022 Atrial fibrillation with RVR The patient's hr has remained in the 130's-140's despite being on Diltiazem CD 240 mg daily, Metoprolol tartrate 100 mg b.i.d. and on an Amiodarone drip Plans for laparoscopic cholecystectomy with intraoperative cholangiogram if the heart rate is controlled -Continue Heparin gtt -In order to optimize heart rate, initiate Digoxin 250mcg IV q 6 hrs x 4 -Amiodarone 150mg IV bolus x1 now -Utilize IV Lopressor -2D echocardiogram to assess the patient's systolic/diastolic function -Continuous telemetry monitoring -Electrolyte replacement protocol to keep the potassium greater than 4.0 and magnesium greater than 2.0 ATTESTATION BY PHYSICIAN I have seen and examined the patient, reviewed the above documentation, participated in medical decision making, made necessary modifications, and agree with the treatment plan as documented by my mid-level provider above. MD QUENTIN Kim [facility] Feb 23, 2024 17:24 ISABEL MORALES MD Feb 23, 2024 19:13
[2024-02-23 17:48] LABS: CREATININE 0.9 mg/dL (0.5-1.0); POTASSIUM 3.7 mmol/L (3.5-5.1)
[2024-02-23] MEDS: DIGOxin 250 MCG/ML 2ML AMP IV SCH (18:05)
--- NOTE | 2024-02-23 19:19 | HMCSR ---
APPROVED REPORT EXAM: Two-dimensional and M-mode echocardiogram with Doppler and color Doppler. Study Details: Hx: hypertension, chronic pancreatitis, morbidly obese INDICATION ICD: Atrial fibrillation with rapid ventricular response. 2D Dimensions RVDd4.9 cmLVEF(%)33.8 (>50%)LVED Vol(simp.)57.7 mL IVSd1.4 (0.7-1.1cm)FS(%)29 %LVES Vol(simp.)40.1 mL LVDd4.4 (3.8-5.6cm)LA (2D)5.3 (1.6-4.0cm)LVEF(%, simp.)31 % PWd1.9 (0.7-1.1cm)Ao Root(2D)2.7 (2.0-3.7cm)LA ESV INDEX (4CH)53.60 mL/m2 IVSs1.7 cmLVOT diam2.4 (1.8-2.4cm)LA ESV INDEX (2CH)37.40 mL/m2 LVDs3.7 (2.5-4.0cm)LA ESV INDEX (BP)44.30 mL/m2 PWs1.9 cm Deformation Strain Apical 49.0 % Apical 210.0 % Apical 39.0 % Global Strain9.0 % M-Mode Dimensions EPSS1.0 cm LA (MM)5.0 (1.6-4.0cm) Ao Root(MM)3.6 (2.0-3.7cm) Aortic Valve AoV VTI0.1 mAo Mean GR2.0 mmHgLVOT VTI0.14 m JENNIFER (VMAX)5.2 cm2AVA (VTI) 5.2 cm2 Mitral Valve MV E Znej891.7 cm/sDECEL Cusb130 ms MR Max PG32 mmHgP 1/2 T53 ms MVA (PHT)4.2 cm2 TDI E/E' Iglfro30.4E/E' Jvusdmm65.2 Medial E' Peak V3.70 cm/sLateral E' Peak V3.60 cm/s Tricuspid Valve TR Vmax2.1 m/sRAP (EST) 15 jzClRNHN53.3 mmHg TR Peak GR17.3 mmHg Left Ventricle Left ventricular cavity size is normal. GLS severely reduced -9.0%. Global hypokinesia. Moderate conc entric left ventricular hypertrophy. LVEF is 30%. The LV diastolic function was unable to be assessed due to atrial arrhythmia. Right Ventricle The right ventricle is severely dilated. The right ventricular systolic function is severely depresse d. Atria The left atrium is moderately dilated. The right atrium is moderately dilated. Aortic Valve The aortic valve is normal in poorly imaged. No aortic regurgitation is present. There is no aortic v alvular stenosis. Mitral Valve Posterior annular calcification noted. There is mild mitral valve regurgitation noted. There is no mi tral valve stenosis. Tricuspid Valve The tricuspid valve leaflets appear normal. There is trace of tricuspid valve regurgitation noted. Pulmonic Valve The pulmonary valve is normal in structure and function. There is no pulmonic valvular regurgitation. Great Vessels The aortic root is normal in size. IVC is dilated and collapses <50% with inspiration. Pericardium No pericardial effusion. Other Information Quality : Fair Conclusion LVEF is 30%. Global hypokinesia. The right ventricle is severely dilated. The right ventricular systolic function is severely depressed. The left atrium is moderately dilated. The right atrium is moderately dilated. IVC is dilated and collapses <50% with inspiration.
[2024-02-23] MEDS: AMIOdarone 150MG VIAL 150 MG in DEXTROSE 5%-WATER 100 ML IV SCH (19:20)
--- NOTE | 2024-02-23 19:51 | NUR ---
DR MORALES STOPPED BY PATIENT'S ROOM TO BE UPDATED OF CURRENT STATUS OF PATIENT, WAS MADE AWARE OF CURRENT MEDS GIVEN AND WHEN NEXT MEDS WERE DUE, ORDERED ANOTHER DOSE OF DIGOXIN 375 MCG IV, ALSO STATED TO CONTINUE WITH NEXT SCHEDULED DOSES OF DIGOXIN. WILL CONTINUE TO MONITOR PATIENT.
[2024-02-23] MEDS: DIGOxin 250 MCG/ML 2ML AMP IV ONE (20:19)
[2024-02-24] VITALS (16 sets, daily range): BP systolic 134–158; BP diastolic 66–98; PULSE 75–148; RESP 18–22; TEMP 97.7–98.9; O2SAT 97
[2024-02-24 04:24] LABS: BASOPHILS # (AUTO) 0.02 K/uL (0.00-0.20); BASOPHILS % (AUTO) 0.2 % (0.0-5.0); EOSINOPHILS # (AUTO) 0.14 K/uL (0.00-0.70); EOSINOPHILS % (AUTO) 1.4 % (0.0-8.0); HEMATOCRIT 38.5 % (36-48); IMMATURE GRANULOCYTE ABSOLUTE 0.07 K/uL (0-1); LYMPHOCYTES # (AUTO) 2.3 K/uL (1.0-4.8); LYMPHOCYTES % (AUTO) 22.8 % (21.0-51.0); MEAN CORPUSCULAR HEMOGLOBIN 30.3 pg (27.0-33.0); MEAN CORPUSCULAR HGB CONC 33.2 g/dL (32.0-36.0); MEAN CORPUSCULAR VOLUME 91.2 fL (79-99); MONOCYTES # (AUTO) 0.8 K/uL (0.1-1.0); MONOCYTES % (AUTO) 7.9 % (3.0-13.0); NEUTROPHILS # (AUTO) 6.8 K/uL (1.8-7.7); PLATELET COUNT (AUTO) 167 K/uL (130-400); RED BLOOD CELL COUNT(AUTO) 4.22 MIL/uL (4.00-5.50); RED CELL DISTRIBUTION WIDTH 14.6 % (11.0-15.5); WHITE BLOOD COUNT (AUTO) 10.1 K/uL (4.8-10.8)
[2024-02-24 05:04] LABS: ALBUMIN 2.4 g/dL (3.5-5.0); CREATININE 0.9 mg/dL (0.5-1.0); MAGNESIUM 1.9 mg/dL (1.80-2.40); POTASSIUM 4.1 mmol/L (3.5-5.1); TOTAL PROTEIN, SERUM 6.1 g/dL (6.0-8.3)
--- NOTE | 2024-02-24 08:16 | NUR ---
Amiodarone drip Maintenance fluid of Amiodarone finished contacted [facility], ordered to repeat amiodarone protocol with bolus. Addendum: 02/24/24 at 0818 by ISABELL CONNELL RN RN Occured @ 0130 02/24/24
--- NOTE | 2024-02-24 08:19 | PN ---
[facility] PROGRESS NOTE Date Patient Seen: Feb 24, 2024 Time of Visit: 08:16 Supervising Physician: Dr. Peralta Primary Care Physician: Dr. Codey Cameron Outpatient Specialists: Inpatient Consults: Dr. Mix, Dr. Boone PROBLEM LIST: Acute on chronic pancreatitis, LAURA's score-1 (1% predicted mortality)--- 48 hour LAURA 2pts (1% predicted mortality) Acute cholecystitis Atrial fibrillation, with RVR- on anti-arrhythmics, no AC, history of ablation Intractable abdominal pain with nausea and vomiting H-pylori, treated Morbid obesity BMI 56 POOJA with home CPAP Hx. HTN, POOJA, Afib, H pylori Plan: Had onset of afib with RVR IV bolus Up antibiotics therapy Amiodarone drip Given digoxin per cardiology Continue maintenance fluids with LR General surgery consult PPI NPO Zofran prn HIDA scan with normal EF of GB. Trend lipase/LFT's Triglycerides normal Monitor and replace electrolytes, potassium Pain management Resume home meds including antiarrhymics, hold lisinopril, HCTZ Heparin drip INTERVAL HISTORY: [Patient has improved with less nausea vomiting and abdominal pain. Her lipase has significantly improved down to 1000. Her triglycerides were unremarkable at 37. Patient had her HIDA scan, pending reading. She was evaluated by General surgery and pending laparoscopic cholecystectomy tomorrow. She admits sensation of urinary retention. Not able to completely void urine. No fever, n/v cu rrently.] 02/22 patient has an episode of AFib RVR overnight and was transferred into PCU for amiodarone drip per protocol. This morning patient remains with AFib RVR up to 140 despite being on amiodarone drip, diltiazem and beta-lanny. Patient is clinically diaphoretic not in acute distress not having any chest pain. Her lab this morning with WBC of 13.5 up from 5.6 her neutrophil is 89. Hemoglobin is within normal limits. Potassium otherwise is low at 3.0. Check magnesium. bicarb is 33 BUN 14 creatinine is 1.2 this is down from 1.3 yesterday. BNP is 400. Her [place]ase is [place] 1700 [place] [address]. Check LDH to calculate LAURA's criteria. No abdominal pain at this time. Patient is hypovolemic, we will give her 30 cc/ kilogram of IV fluid now. Given intra-abdominal infection, we will up the antibiotic coverage from Zosyn to meropenem. We will need to send blood cultures as well. Continue to follow cultures. Gen surg has been consulted for possible cholecystitis. TSH is normal. Given AFib RVR, we can start patient on heparin drip per protocol. Patient has been seen by Dr. Bunn as outpatient on Multaq, will consult Cardiology. Home CPAP at night and nap time. Still ill, continue PCCU. 02/23 patient is awake alert oriented x3 no acute event overnight. Patient remains with AFib with rapid ventricular response overnight remaining on amiodarone drip was given digoxin yesterday with a brief improvement. Otherwise no fever with T-max 98.8. Her hematology with improved leukocytosis now at 10 down from 15 hemoglobin is stable. She is on merem. Chemistries with creatinine is 0.9. Potassium is 4.1 bicarb is 30. We will continue with current IV fluids. We will repeat lipase . Her liver function has normalized. Urine culture is negative to date. Blood culture is pending. Continue with amiodarone drip and keeping her in PCU. Pending laparoscopic cholecystectomy with intraoperative cholangiogram by surgery team when AFib RVR has resolved. REVIEW OF SYSTEMS: 12 point ROS reviewed with patient. Pertinent positives mentioned above. Otherwise negative. PHYSICAL EXAM: GENERAL: alert, weak, awake oriented x 3 HEENT: EOMI, Sclera non icteric, moist mucosa NECK: Supple, no JVD, trachea midline LUNGS: Clear breath sounds bilaterally. No wheezes HEART: Regular rate and rhythm. Normal S1 and S2, without murmurs ABD: Abdomen soft, nontender. Bowel sounds present EXT: No clubbing cyanosis or edema NEURO: Alert and oriented to person, follows commands Vital Signs (last 8hr) Date Time Temp Pulse Resp B/P (MAP) Pulse Ox O2 Delivery O2 Flow Rate FiO2 02/24/24 07:55 97.9 139 18 145/81 99 Room Air 02/24/24 07:24 126 145/81 02/24/24 07:01 130 02/24/24 06:01 130 02/24/24 03:22 97.7 125 22 142/90 93 CPAP 02/24/24 02:22 103 143/93 02/24/24 01:56 146/74 02/24/24 01:30 135/95 02/24/24 01:30 98.8 02/24/24 01:10 129 LABS: Hematology Labs: Test 02/24/24 04:10 Range/Units White Blood Count 10.1 # 4.8-10.8 K/uL Red Blood Count 4.22 4.00-5.50 MIL/uL Hemoglobin 12.8 12.0-16.0 g/dL Hematocrit 38.5 36-48 % Mean Corpuscular Volume 91.2 79-99 fL Mean Corpuscular Hemoglobin 30.3 27.0-33.0 pg Mean Corpuscular Hemoglobin Concent 33.2 32.0-36.0 g/dL Red Cell Distribution Width 14.6 11.0-15.5 % Platelet Count 167 130-400 K/uL Mean Platelet Volume 11.6 H 7.5-10.5 fL Immature Granulocyte % (Auto) 0.7 0-1 % Neutrophils (%) (Auto) 67.0 40.0-77.0 % Lymphocytes (%) (Auto) 22.8 21.0-51.0 % Monocytes (%) (Auto) 7.9 3.0-13.0 % Eosinophils (%) (Auto) 1.4 0.0-8.0 % Basophils (%) (Auto) 0.2 0.0-5.0 % Neutrophils # (Auto) 6.8 1.8-7.7 K/uL Lymphocytes # (Auto) 2.3 1.0-4.8 K/uL Monocytes # (Auto) 0.8 0.1-1.0 K/uL Eosinophils # (Auto) 0.14 0.00-0.70 K/uL Basophils # (Auto) 0.02 0.00-0.20 K/uL Absolute Immature Granulocyte (auto 0.07 0-1 K/uL Nucleated Red Blood Cells 0.0 0.0-0.19 % Chemistry Labs: Test 02/24/24 04:10 02/23/24 16:20 02/23/24 06:30 02/23/24 04:46 Range/Units Sodium Level 142 136-145 mmol/L Potassium Level 4.1 3.5-5.1 mmol/L Chloride Level 106 101-111 mmol/L Carbon Dioxide Level 30 21-32 mmol/L Blood Urea Nitrogen 10 7-18 mg/dL Creatinine 0.9 0.5-1.0 mg/dL Glomerular Filtration Rate Calc 71 >90 mL/min Random Glucose 107 H 70-105 mg/dL Total Calcium 8.3 L 8.5-10.1 mg/dL Magnesium Level 1.90 1.80-2.40 mg/dL Total Bilirubin 1.0 0.2-1.0 mg/dL Aspartate Amino Transf (AST/SGOT) 29 10-37 U/L Alanine Aminotransferase (ALT/SGPT) 78 12-78 U/L Alkaline Phosphatase 92 50-136 U/L Total Protein 6.1 6.0-8.3 g/dL Albumin 2.4 L 3.5-5.0 g/dL Direct Bilirubin 0.4 H 0.0-0.3 mg/dL Lactate Dehydrogenase 218 81-234 U/L Thyroid Stimulating Hormone (TSH) 2.99 # 0.36-3.74 uIU/mL B-Type Natriuretic Peptide 448 H 0-100 pg/mL Test 02/22/24 08:48 Range/Units Phosphorus Level 3.1 2.5-4.9 mg/dL Lipase 1765 *H 16-77 U/L Coagulation Labs: Test 02/24/24 04:10 02/22/24 08:48 Range/Units Activated Partial Thromboplast Time 60.4 H 26.3-35.5 SEC Prothrombin Time 13.7 H 9.6-11.6 SEC Prothromb Time International Ratio 1.29 H 0.85-1.15 DIAGNOSTICS / RADIOLOGY RESULTS: [ ] PLAN NEURO: Minimize central acting medications as possible. Maintain fall precautions, adequate lighting during the day PULMONARY: Supplemental 02 as needed. Maintain aspiration precautions at all times CARDIOVASCULAR: Follow hemodynamics. Vital signs per facility protocol Amiodarone IVF BB Multag per cardiology GI & NUTRITION: Continue with nutritional support. Continue stool softeners and laxatives as needed. KIDNEYS & ELECTROLYTES: Strict monitoring of intake, output and overall fluid balance. Avoid nephrotoxic medications to the extent possible. Medications to be dosed according to renal function. Monitor electrolytes and replace as needed ENDOCRINE: Maintain blood glucose between 100-180 at all times. Hypoglycemia protocol in place INFECTIOUS DISEASE: Trend temperature, WBC and procalcitonin level Follow cultures, deescalate antibiotics as soon as possible. Panculture if new onset fever Zosyn 02/20-02/22 Meropenem 02/22- ONCOLOGY/HEMATOLOGY/COAGULATION: Monitor for s/s of bleeding Monitor hemoglobin, coagulation studies as needed SKIN: Pressure ulcer prevention per facility protocol Specialty mattress ORTHO/REHAB: Continue PT/OT Prophylaxis: Continue GI and DVT prophylaxis Code Status: Full Resuscitation Disposition: TBD Other: Total patient care time exceeds 35 minutes excluding all procedures. PATRICIA SHARP [facility] Feb 24, 2024 08:18
[2024-02-24] MEDS: AMIOdarone 900MG VIAL 540 MG in DEXTROSE 5%-WATER 300 ML IV SCH (09:01)
[2024-02-24] MEDS: MAGNESIUM 2GM PREMIX 50ML 50 ML IV PRN (09:01)
[2024-02-24] MEDS: PANTOPrazole 40 MG/VIAL IVP SCH (09:02)
--- NOTE | 2024-02-24 11:44 | NUR ---
PICC LINE Patient educated on PICC line and insertion. Patient and family hesitant on PICC line insertion, because patient states she previously had a bad experience on PICC line insertion. Cathy, PICC RN notified that consent is not yet signed. Patient states wants to talk to doctor and think about whether or not to have PICC line inserted.
--- NOTE | 2024-02-24 17:24 | PN ---
Atrial fibrillation with RVR Chronic anticoagulation with Eliquis Biliary pancreatitis, Lipase 67075, 1765 Transaminitis Leukocytosis Hypokalemia Hypertension Lexiscan stress test on 04/29/2023 with small size, mild intensity, fully reversible perfusion defect seen in the apical inferior and inferolateral ayon, no regional wall motion abnormalities, no obvious TID, study indicates a moderate risk for cardiovascular events History of tachycardia mediated cardiomyopathy 2D echo on 03/16/2022 with an EF of 35-40% and stage III diastolic dysfunction Loop recorder implantation CT Heart Service on 05/21/2021 which revealed a calcium score of 108 consistent with moderate atherosclerotic plaque Lexiscan stress test on 04/29/2023 with small size, mild intensity, fully reversible perfusion defect seen in the apical inferior and inferolateral ayon, no regional wall motion abnormalities, no obvious TID, study indicates a moderate risk for cardiovascular events POOJA on CPAP Morbid obesity Hx of acute pancreatitis with secondary inflammation of the gallbladder Hx of paroxysmal atrial fibrillation status post pulmonary vein isolation on 08/24/2022 Patient feels well, states she feels improvement overall with improved sense of well-being and less shortness of breath. Morbidly obese patient with clear lungs, distant heart tones, irregular rhythm, still in coarse atrial fibrillation with variable ventricular response. Lungs are clear, nonlabored respiration, slowly improving overall Plan: Continue efforts to control response to atrial fibrillation. We have added digitalization but are cautious about calcium channel blockers because of depressed ejection fraction. Vitals/Labs Vital Signs Date Time Temp Pulse Resp B/P (MAP) Pulse Ox O2 Delivery O2 Flow Rate FiO2 02/24/24 16:52 140 141/95 02/24/24 16:50 18 98 Room Air 02/24/24 16:26 98.4 02/24/24 11:55 0.0 02/24/24 09:16 21 Laboratory Tests 02/24/24 04:10 Medications Current Medications Sodium Chloride 1,000 ml @ 0 mls/hr ONCE ONCE IV Last administered on 02/21/24at 05:32; Start 02/21/24 at 05:00; Stop 02/21/24 at 05:01; Status DC Ondansetron HCl 4 mg ONCE ONCE IVP Last administered on 02/21/24at 05:32; Start 02/21/24 at 05:00; Stop 02/21/24 at 05:01; Status DC Pantoprazole Sodium 40 mg ONCE ONCE IVP Last administered on 02/21/24at 05:32; Start 02/21/24 at 05:00; Stop 02/21/24 at 05:01; Status DC Morphine Sulfate 4 mg ONCE ONCE IVP Last administered on 02/21/24at 05:32; Start 02/21/24 at 05:30; Stop 02/21/24 at 05:31; Status DC Potassium Bicarbonate 25 meq ONCE ONCE PO; Start 02/21/24 at 06:30; Stop 02/21/24 at 06:31; Status DC Ampicillin Sodium/ Sulbactam Sodium 1.5 gm ONCE ONCE IV Last administered on 02/21/24at 06:48; Start 02/21/24 at 06:30; Stop 02/21/24 at 06:34; Status DC Lactated Ringer's 1,000 ml @ 125 mls/hr Q8H IV Last administered on 02/22/24at 22:22; Start 02/21/24 at 06:30; Stop 02/23/24 at 17:57; Status DC Enoxaparin Sodium 40 mg DAILY SQ Last administered on 02/21/24at 09:14; Start 02/21/24 at 09:00; Stop 02/21/24 at 10:15; Status DC Acetaminophen 650 mg Q6H PRN PO Last administered on 02/22/24at 05:56; Start 02/21/24 at 06:30; Stop 03/22/24 at 06:29 Acetaminophen 650 mg Q6H PRN RC; Start 02/21/24 at 06:30; Stop 03/22/24 at 06:29 Acetaminophen/ Hydrocodone Bitart 1 tab Q6H PRN PO Last administered on 02/23/24at 11:10; Start 02/21/24 at 06:30; Stop 02/26/24 at 06:29 Ondansetron HCl 4 mg Q6H PRN IVP; Start 02/21/24 at 06:30; Stop 03/22/24 at 06:29 Hydralazine HCl 10 mg Q6H PRN IV; Start 02/21/24 at 06:30; Stop 03/22/24 at 06:29 Labetalol HCl 10 mg Q2H PRN IV; Start 02/21/24 at 06:30; Stop 02/21/24 at 12:25; Status DC Potassium Chloride 100 ml @ 50 mls/hr ONCE ONCE IV Last administered on 02/21/24at 09:13; Start 02/21/24 at 09:30; Stop 02/21/24 at 11:29; Status DC Levofloxacin/ Dextrose 100 ml @ 100 mls/hr Q24H IV; Start 02/21/24 at 10:00; Stop 02/21/24 at 10:12; Status DC Metronidazole/ Sodium Chloride 500 mg Q8H IV; Start 02/21/24 at 10:00; Stop 02/21/24 at 10:12; Status DC Lactated Ringer's 2,000 ml BOLUS ONCE IV Last administered on 02/21/24at 10:10; Start 02/21/24 at 10:00; Stop 02/21/24 at 10:01; Status DC Pantoprazole Sodium 80 mg/ Sodium Chloride 100 ml @ 10 mls/hr Q10H IVP Last administered on 02/22/24at 08:53; Start 02/21/24 at 10:30; Stop 02/22/24 at 11:36; Status DC Dronedarone 400 mg BID PO Last administered on 02/22/24at 20:20; Start 02/21/24 at 21:00; Stop 02/22/24 at 23:49; Status DC Diltiazem HCl 240 mg DAILY PO Last administered on 02/24/24at 09:02; Start 02/22/24 at 09:00; Stop 03/23/24 at 08:59 Metoprolol Tartrate 100 mg BID PO Last administered on 02/24/24at 09:02; Start 02/21/24 at 21:00; Stop 03/22/24 at 20:59 Enoxaparin Sodium 60 mg DAILY SQ Last administered on 02/23/24at 07:53; Start 02/22/24 at 09:00; Stop 02/23/24 at 13:36; Status DC Piperacillin Sod/ Tazobactam Sod 3.375 gm Q8H IVPB Last administered on 02/23/24at 11:04; Start 02/21/24 at 10:30; Stop 02/23/24 at 13:34; Status DC Potassium Chloride 100 ml @ 50 mls/hr AD PRN IV Last administered on 02/22/24at 22:30; Start 02/21/24 at 18:00; Stop 03/22/24 at 17:59 Potassium Chloride 20 meq AD PRN PO Last administered on 02/23/24at 15:38; Start 02/22/24 at 11:30; Stop 03/23/24 at 11:29 Potassium Chloride 20 meq AD PRN PO Last administered on 02/23/24at 21:03; Start 02/22/24 at 11:30; Stop 03/23/24 at 11:29 Pantoprazole Sodium 40 mg DAILY PO Last administered on 02/23/24at 07:54; Start 02/23/24 at 09:00; Stop 02/23/24 at 13:36; Status DC Metoprolol Tartrate 2.5 mg Q6H PRN IV Last administered on 02/24/24at 16:52; Start 02/22/24 at 20:00; Stop 03/23/24 at 19:59 Amiodarone HCl 150 mg/Dextrose 103 ml @ 618 mls/hr ONCE IV Last administered on 02/23/24at 00:06; Start 02/23/24 at 00:00; Stop 02/23/24 at 00:09; Status DC Amiodarone HCl 360 mg/Dextrose 207.2 ml @ 33.3 mls/hr AD IV Last administered on 02/24/24at 02:12; Start 02/23/24 at 00:00; Stop 03/24/24 at 00:00 Amiodarone HCl 540 mg/Dextrose 310.8 ml @ 16.7 mls/hr [id number] STAT IV Last administered on 02/23/24at 06:28; Start 02/22/24 at 23:35; Stop 02/23/24 at 18:11; Status DC Lactated Ringer's 1,572 ml @ 524 mls/hr ONCE ONCE IV Last administered on 02/23/24at 13:30; Start 02/23/24 at 13:30; Stop 02/23/24 at 16:29; Status DC Meropenem 1 gm/ Sodium Chloride 100 ml @ 33.333 mls/ hr Q8H IVPB Last administered on 02/24/24at 13:34; Start 02/23/24 at 13:30; Stop 03/04/24 at 13:29 Heparin Sodium/ Dextrose 250 ml @ 0 mls/hr PROTOCOL IV Last administered on 02/24/24at 14:39; Start 02/23/24 at 14:00; Stop 03/24/24 at 13:59 Pantoprazole Sodium 40 mg DAILY IVP Last administered on 02/24/24at 09:02; Start 02/24/24 at 09:00; Stop 03/25/24 at 08:59 Heparin Sodium (Porcine) 11,000 unit ONCE ONCE IV Last administered on 02/23/24at 17:24; Start 02/23/24 at 17:00; Stop 02/23/24 at 17:01; Status DC Digoxin 250 mcg Q6H6 IV Last administered on 02/24/24at 12:07; Start 02/23/24 at 18:00; Stop 02/24/24 at 12:01; Status DC Magnesium Sulfate 50 ml @ 0 mls/hr PROTOCOL PRN IV Last administered on 02/24/24at 09:01; Start 02/23/24 at 18:00; Stop 03/24/24 at 17:59 Amiodarone HCl 150 mg/Dextrose 100 ml @ 0 mls/hr PROTOCOL IV Last administered on 02/24/24at 01:55; Start 02/23/24 at 18:30; Stop 03/24/24 at 18:29 Digoxin 375 mcg ONCE ONCE IV Last administered on 02/23/24at 20:19; Start 02/23/24 at 20:00; Stop 02/23/24 at 20:01; Status DC Amiodarone HCl 540 mg/Dextrose 310.8 ml @ 16.7 mls/hr AD IV Last administered on 02/24/24at 09:01; Start 02/24/24 at 08:30; Stop 03/25/24 at 08:29 ISABEL MORALES MD Feb 24, 2024 17:24
[2024-02-24] MEDS: ondanSETRON 4MG INJ IVP PRN (22:30)
[2024-02-25] VITALS (16 sets, daily range): BP systolic 106–154; BP diastolic 57–99; PULSE 61–120; RESP 18–20; TEMP 97.8–98.2; O2SAT 98
[2024-02-25 03:54] LABS: BASOPHILS # (AUTO) 0.03 K/uL (0.00-0.20); BASOPHILS % (AUTO) 0.4 % (0.0-5.0); EOSINOPHILS % (AUTO) 2.4 % (0.0-8.0); HEMATOCRIT 40.8 % (36-48); IMMATURE GRANULOCYTE ABSOLUTE 0.08 K/uL (0-1); LYMPHOCYTES # (AUTO) 2.2 K/uL (1.0-4.8); LYMPHOCYTES % (AUTO) 26.2 % (21.0-51.0); MEAN CORPUSCULAR HEMOGLOBIN 30.2 pg (27.0-33.0); MEAN CORPUSCULAR HGB CONC 33.3 g/dL (32.0-36.0); MEAN CORPUSCULAR VOLUME 90.7 fL (79-99); MONOCYTES # (AUTO) 0.9 K/uL (0.1-1.0); MONOCYTES % (AUTO) 11.3 % (3.0-13.0); NEUTROPHILS # (AUTO) 4.9 K/uL (1.8-7.7); NEUTROPHILS % (AUTO) 58.7 % (40.0-77.0); PLATELET COUNT (AUTO) 189 K/uL (130-400); RED CELL DISTRIBUTION WIDTH 14.2 % (11.0-15.5); WHITE BLOOD COUNT (AUTO) 8.3 K/uL (4.8-10.8)
[2024-02-25 04:13] LABS: ALBUMIN 2.4 g/dL (3.5-5.0); BILIRUBIN,TOTAL 0.7 mg/dL (0.2-1.0); CREATININE 0.9 mg/dL (0.5-1.0); POTASSIUM 3.5 mmol/L (3.5-5.1); TOTAL PROTEIN, SERUM 6.1 g/dL (6.0-8.3)
[2024-02-25] MEDS: HEParin 5,000 UNIT VIAL IV ONE (04:47)
--- NOTE | 2024-02-25 08:07 | PN ---
[facility] PROGRESS NOTE Date Patient Seen: Feb 25, 2024 Time of Visit: 08:04 Supervising Physician: Dr. Godfrey Primary Care Physician: Dr. Codey Cameron Outpatient Specialists: Inpatient Consults: Dr. Mix, Dr. Boone PROBLEM LIST: Acute on chronic pancreatitis, LAURA's score-1 (1% predicted mortality)--- 48 hour LAURA 2pts (1% predicted mortality) Acute cholecystitis Atrial fibrillation, with RVR- on anti-arrhythmics, no AC, history of ablation Intractable abdominal pain with nausea and vomiting H-pylori, treated Morbid obesity BMI 56 POOJA with home CPAP Hx. HTN, POOJA, Afib, H pylori Plan: Had onset of afib with RVR IV bolus Up antibiotics therapy Amiodarone drip Given digoxin per cardiology Continue maintenance fluids with LR General surgery consult PPI NPO Zofran prn HIDA scan with normal EF of GB. Trend lipase/LFT's Triglycerides normal Monitor and replace electrolytes, potassium Pain management Resume home meds including antiarrhymics, hold lisinopril, HCTZ Heparin drip INTERVAL HISTORY: [Patient has improved with less nausea vomiting and abdominal pain. Her lipase has significantly improved down to 1000. Her triglycerides were unremarkable at 37. Patient had her HIDA scan, pending reading. She was evaluated by General surgery and pending laparoscopic cholecystectomy tomorrow. She admits sensation of urinary retention. Not able to completely void urine. No fever, n/v curren tly.] 02/22 patient has an episode of AFib RVR overnight and was transferred into PCU for amiodarone drip per protocol. This morning patient remains with AFib RVR up to 140 despite being on amiodarone drip, diltiazem and beta-lanny. Patient is clinically diaphoretic not in acute distress not having any chest pain. Her lab this morning with WBC of 13.5 up from 5.6 her neutrophil is 89. Hemoglobin is within normal limits. Potassium otherwise is low at 3.0. Check magnesium. bicarb is 33 BUN 14 creatinine is 1.2 this is down from 1.3 yesterday. BNP is 400. Her [place] 1700 [place] [id number]. Check LDH to calculate LAURA's criteria. No abdominal pain at this time. Patient is hypovolemic, we will give her 30 cc/ kilogram of IV fluid now. Given intra-abdominal infection, we will up the antibiotic coverage from Zosyn to meropenem. We will need to send blood cultures as well. Continue to follow cultures. Gen surg has been consulted for possible cholecystitis. TSH is normal. Given AFib RVR, we can start patient on heparin drip per protocol. Patient has been seen by Dr. Bunn as outpatient on Multaq, will consult Cardiology. Home CPAP at night and nap time. Still ill, continue PCCU. 02/23 patient is awake alert oriented x3 no acute event overnight. Patient remains with AFib with rapid ventricular response overnight remaining on amiodarone drip was given digoxin yesterday with a brief improvement. Otherwise no fever with T-max 98.8. Her hematology with improved leukocytosis now at 10 down from 15 hemoglobin is stable. She is on merem. Chemistries with creatinine is 0.9. Potassium is 4.1 bicarb is 30. We will continue with current IV fluids. We will repeat lipase . Her liver function has normalized. Urine culture is negative to date. Blood culture is pending. Continue with amiodarone drip and keeping her in PCU. Pending laparoscopic cholecystectomy with intraoperative cholangiogram by surgery team when AFib RVR has resolved. 02/24 patient is awake alert oriented x3 not in acute distress. She denies any abdominal pain at this time, she denies any nausea and vomiting. No Acute events overnight patient remains on amiodarone drip for AFib RVR. She received dose of digoxin yesterday now on diltiazem 240 mg. Patient oxygen metoprolol 100 mg b.i.d.. She received p.r.n. metoprolol 2.5 mg q.6 hours. Heart rate is 60s to 100s, blood pressure is 117/66. She is on room air saturation oxygen 99%. This morning is remarkable for albumin of 2.4 lipase is down to 230. WBC is down to 8.3 as well and hemoglobin is stable. Blood culture and urine culture are negative. Continue with current on regimen. Patient is pending laparoscopic cholecystectomy. REVIEW OF SYSTEMS: 12 point ROS reviewed with patient. Pertinent positives mentioned above. Otherwise negative. PHYSICAL EXAM: GENERAL: alert, weak, awake oriented x 3 HEENT: EOMI, Sclera non icteric, moist mucosa NECK: Supple, no JVD, trachea midline LUNGS: Clear breath sounds bilaterally. No wheezes HEART: Regular rate and rhythm. Normal S1 and S2, without murmurs ABD: Abdomen soft, nontender. Bowel sounds present EXT: No clubbing cyanosis or edema NEURO: Alert and oriented to person, follows commands Vital Signs (last 8hr) Date Time Temp Pulse Resp B/P (MAP) Pulse Ox O2 Delivery O2 Flow Rate FiO2 02/25/24 06:27 117/66 02/25/24 06:26 108 02/25/24 05:41 110 02/25/24 04:00 98.1 67 18 106/66 99 Room Air 02/25/24 03:04 99 LABS: Hematology Labs: Test 02/25/24 03:36 Range/Units White Blood Count 8.3 4.8-10.8 K/uL Red Blood Count 4.50 4.00-5.50 MIL/uL Hemoglobin 13.6 12.0-16.0 g/dL Hematocrit 40.8 36-48 % Mean Corpuscular Volume 90.7 79-99 fL Mean Corpuscular Hemoglobin 30.2 27.0-33.0 pg Mean Corpuscular Hemoglobin Concent 33.3 32.0-36.0 g/dL Red Cell Distribution Width 14.2 11.0-15.5 % Platelet Count 189 130-400 K/uL Mean Platelet Volume 11.7 H 7.5-10.5 fL Immature Granulocyte % (Auto) 1.0 0-1 % Neutrophils (%) (Auto) 58.7 40.0-77.0 % Lymphocytes (%) (Auto) 26.2 21.0-51.0 % Monocytes (%) (Auto) 11.3 3.0-13.0 % Eosinophils (%) (Auto) 2.4 0.0-8.0 % Basophils (%) (Auto) 0.4 0.0-5.0 % Neutrophils # (Auto) 4.9 1.8-7.7 K/uL Lymphocytes # (Auto) 2.2 1.0-4.8 K/uL Monocytes # (Auto) 0.9 0.1-1.0 K/uL Eosinophils # (Auto) 0.20 0.00-0.70 K/uL Basophils # (Auto) 0.03 0.00-0.20 K/uL Absolute Immature Granulocyte (auto 0.08 0-1 K/uL Nucleated Red Blood Cells 0.0 0.0-0.19 % Chemistry Labs: Test 02/25/24 03:36 02/23/24 16:20 Range/Units Sodium Level 141 136-145 mmol/L Potassium Level 3.5 3.5-5.1 mmol/L Chloride Level 106 101-111 mmol/L Carbon Dioxide Level 29 21-32 mmol/L Blood Urea Nitrogen 11 7-18 mg/dL Creatinine 0.9 0.5-1.0 mg/dL Glomerular Filtration Rate Calc 71 >90 mL/min Random Glucose 111 H 70-105 mg/dL Total Calcium 8.4 L 8.5-10.1 mg/dL Magnesium Level 2.30 1.80-2.40 mg/dL Total Bilirubin 0.7 # 0.2-1.0 mg/dL Aspartate Amino Transf (AST/SGOT) 16 10-37 U/L Alanine Aminotransferase (ALT/SGPT) 53 # 12-78 U/L Alkaline Phosphatase 87 50-136 U/L Total Protein 6.1 6.0-8.3 g/dL Albumin 2.4 L 3.5-5.0 g/dL Lipase 231 H 16-77 U/L Direct Bilirubin 0.4 H 0.0-0.3 mg/dL Coagulation Labs: Test 02/25/24 03:36 Range/Units Activated Partial Thromboplast Time 43.6 #H 26.3-35.5 SEC DIAGNOSTICS / RADIOLOGY RESULTS: [ ] PLAN NEURO: Minimize central acting medications as possible. Maintain fall precautions, adequate lighting during the day PULMONARY: Supplemental 02 as needed. Maintain aspiration precautions at all times CARDIOVASCULAR: Follow hemodynamics. Vital signs per facility protocol Amiodarone IVF BB Multag per cardiology GI & NUTRITION: Continue with nutritional support. Continue stool softeners and laxatives as needed. KIDNEYS & ELECTROLYTES: Strict monitoring of intake, output and overall fluid balance. Avoid nephrotoxic medications to the extent possible. Medications to be dosed according to renal function. Monitor electrolytes and replace as needed ENDOCRINE: Maintain blood glucose between 100-180 at all times. Hypoglycemia protocol in place INFECTIOUS DISEASE: Trend temperature, WBC and procalcitonin level Follow cultures, deescalate antibiotics as soon as possible. Panculture if new onset fever Zosyn 02/20-02/22 Meropenem 11/14- ONCOLOGY/HEMATOLOGY/COAGULATION: Monitor for s/s of bleeding Monitor hemoglobin, coagulation studies as needed SKIN: Pressure ulcer prevention per facility protocol Specialty mattress ORTHO/REHAB: Continue PT/OT Prophylaxis: Continue GI and DVT prophylaxis Code Status: Full Resuscitation Disposition: TBD Other: Total patient care time exceeds 35 minutes excluding all procedures. PATRICIA SHARP [facility] Feb 25, 2024 08:07
[2024-02-25] MEDS: metoPROLOL tartRATE 1 MG/ML 5ML VIAL IV ONE (10:51)
[2024-02-25] MEDS: metoPROLOL tartRATE 50 MG TAB PO ONE (10:52)
--- NOTE | 2024-02-25 11:24 | PN ---
[facility] CARDIOLOG[facility] PROGRESS NOTE Date Patient Seen: Feb 25, 2024 Time of Visit: 10:51 Interval History: This is a 68-year-old Latin-Chinese female with a past medical history of hypertension, paroxysmal atrial fibrillation status post pulmonary vein isolat ion on 08/24/2022, on Multaq antiarrhythmic therapy and long-term anticoagulation with Eliquis, tachycardia mediated cardiomyopathy with an LVEF of 35-40% by 2D echocardiogram 03/16/2022, prior implantation of [employer]tronic loop recorder, CT Heart Saver score of 108 on 05/21/2021 and a Lexiscan stress test on 04/29/2023 with small size, mild intensity, fully reversible perfusion defect seen in the apical inferior and inferolateral ayon, no regional wall motion abnormalities, no obvious TID, POOJA on CPAP, morbid obesity, and history of recurrent pancreatitis was admitted with 1 day history of abdominal pain, nausea and vomiting. She was found to have recurrent [place] [address]. She was also hypokalemic on admission with a potassium level 2.8, she had leukocytosis up to 15,000. She was evaluated by General surgery and plans were for the patient to undergo laparoscopic cholecystectomy. Unfortunately, on 02/22/2024, the patient was noted to be in atrial fibrillation with rapid ventricular response in the 130-140 beat per minute range despite being on diltiazem ER 240 mg daily and metoprolol tartrate 100 mg p.o. b.i.d.. She was initiated on IV amiodarone bolus plus infusion. She was initiated on IV heparin 02/23/2024. Her last dose of Eliquis had been 02/21/2024. She continued to have heart rates in the 140 beat per minute range on 02/24/2024 and she was treated with digoxin 0.25 mg IV x4 doses. This morning, she has had heart rates into the 120 beat per minute range but nonsustained. She reports he had been on metoprolol tartrate 150 mg p.o. b.i.d. at home in combination with her diltiazem 240 and Multaq. A 2D echocardiogram on 02/23/2024 demonstrated moderate concentric LVH and an LVEF of 30%. This is in comparison to a gated EF of 55% by her prior Lexiscan Cardiolite stress test 04/29/2023 (patient was in a normal sinus rhythm). Physical Examination: GENERAL: Morbidly obese female, lying in bed, No acute distress. No complaints of abdominal pain HEAD: Normal with no signs of head trauma. EYES: PERRLA, EOMI, conjunctiva and sclera normal. NECK: Supple without JVD. There is no tenderness, lymphadenopathy, or masses. No thyromegaly. Normal carotid upstrokes without bruits. LUNGS: Clear breath sounds bilaterally. No wheezes, or rhonchi. HEART: Irregularly irregular underlying rhythm, no obvious murmur, gallop or rub. VASC: Peripheral pulses +2 bilaterally. EXT: No clubbing, cyanosis or edema. NEURO: Awake, alert, and oriented x3. No focal neurological deficits noted. Laboratory: Hematology Labs: Test 02/25/24 03:36 Range/Units White Blood Count 8.3 4.8-10.8 K/uL Red Blood Count 4.50 4.00-5.50 MIL/uL Hemoglobin 13.6 12.0-16.0 g/dL Hematocrit 40.8 36-48 % Mean Corpuscular Volume 90.7 79-99 fL Mean Corpuscular Hemoglobin 30.2 27.0-33.0 pg Mean Corpuscular Hemoglobin Concent 33.3 32.0-36.0 g/dL Red Cell Distribution Width 14.2 11.0-15.5 % Platelet Count 189 130-400 K/uL Mean Platelet Volume 11.7 H 7.5-10.5 fL Immature Granulocyte % (Auto) 1.0 0-1 % Neutrophils (%) (Auto) 58.7 40.0-77.0 % Lymphocytes (%) (Auto) 26.2 21.0-51.0 % Monocytes (%) (Auto) 11.3 3.0-13.0 % Eosinophils (%) (Auto) 2.4 0.0-8.0 % Basophils (%) (Auto) 0.4 0.0-5.0 % Neutrophils # (Auto) 4.9 1.8-7.7 K/uL Lymphocytes # (Auto) 2.2 1.0-4.8 K/uL Monocytes # (Auto) 0.9 0.1-1.0 K/uL Eosinophils # (Auto) 0.20 0.00-0.70 K/uL Basophils # (Auto) 0.03 0.00-0.20 K/uL Absolute Immature Granulocyte (auto 0.08 0-1 K/uL Nucleated Red Blood Cells 0.0 0.0-0.19 % Chemistry Labs: Test 02/25/24 03:36 02/23/24 16:20 Range/Units Sodium Level 141 136-145 mmol/L Potassium Level 3.5 3.5-5.1 mmol/L Chloride Level 106 101-111 mmol/L Carbon Dioxide Level 29 21-32 mmol/L Blood Urea Nitrogen 11 7-18 mg/dL Creatinine 0.9 0.5-1.0 mg/dL Glomerular Filtration Rate Calc 71 >90 mL/min Random Glucose 111 H 70-105 mg/dL Total Calcium 8.4 L 8.5-10.1 mg/dL Magnesium Level 2.30 1.80-2.40 mg/dL Total Bilirubin 0.7 # 0.2-1.0 mg/dL Aspartate Amino Transf (AST/SGOT) 16 10-37 U/L Alanine Aminotransferase (ALT/SGPT) 53 # 12-78 U/L Alkaline Phosphatase 87 50-136 U/L Total Protein 6.1 6.0-8.3 g/dL Albumin 2.4 L 3.5-5.0 g/dL Lipase 231 H 16-77 U/L Direct Bilirubin 0.4 H 0.0-0.3 mg/dL Coagulation Labs: Test 02/25/24 03:36 Range/Units Activated Partial Thromboplast Time 43.6 #H 26.3-35.5 SEC Diagnostics / Radiology: 2D echocardiogram 02/23/2024: Conclusion LVEF is 30%. Global hypokinesia. The right ventricle is severely dilated. The right ventricular systolic function is severely depressed. The left atrium is moderately dilated. The right atrium is moderately dilated. IVC is dilated and collapses <50% with inspiration. Impression and Plan: Acute on chronic pancreatitis Acute cholecystitis: -symptomatically improved -plans for laparoscopic cholecystectomy currently on hold pending improvement of her atrial fibrillation rate Recurrent, atrial fibrillation with RVR noted 02/22/2024 Hx atrial fibrillation pulmonary vein isolation on 08/24/2022 Long-term anticoagulation with Eliquis (last dose 02/21/2024): -the patient has required both diltiazem ER 240 mg daily and metoprolol 150 mg p.o. b.i.d. at home for rate control -her digoxin was previously withdrawn by Dr. Smith -her last interrogation of her loop recorder July 2023 demonstrated an atrial fibrillation burden of 13.1% -Eliquis currently on hold and the patient has been initiated on IV heparin drip 02/23/2024 -she has completed IV amiodarone bolus with infusion and repeat bolus, she also received digoxin 0.25 mg IV q.6 x4 doses on 02/24/2024 -advanced metoprolol tartrate to 150 mg p.o. b.i.d. -interrogate her loop recorder to assess her atrial fibrillation burden (she may have been in a sinus rhythm on admission with a heart rate documented of 65-70 beats per minute, but no EKG done on admission ( -begin amiodarone 200 mg p.o. daily, now status post amiodarone bolus plus infusion Hypokalemia on admission with a potassium of 2.8: -continue potassium and magnesium supplementation to keep potassium of 4.0 and magnesium of 2.0 -her hypokalemia was likely related to vomiting prior to admission Tachycardia mediated cardiomyopathy with an LVEF of 35-40% and stage III diastolic dysfunction by 2D echocardiogram 03/16/2022, gated EF of 55% by Lexiscan Cardiolite stress test (in a normal sinus rhythm) 04/29/2023 and an LVEF of 30% by follow-up 2D echocardiogram 02/23/2024: -for now we will cautiously continue with diltiazem, advanced metoprolol tartrate to her home dose of 150 mg p.o. b.i.d. Comorbidities: Hypertension Abnormal Lexiscan Cardiolite stress test 04/29/2023 demonstrating a small size, mild intensity, fully reversible defect in the apical inferior and inferolateral ayon, no regional wall motion abnormalities and a gated EF of 55% CT Heart Saver score of 108 on 05/21/2021 POOJA on CPAP Morbid obesity Hx of acute pancreatitis with secondary inflammation of the gallbladder [employer] Loop recorder interrogation 07/25/2023 demonstrated paroxysmal atrial fibrillation with longest episode of 10 hours and atrial fibrillation burden of 13.1% PHYSICIAN ATTESTATION OF PHYSICIAN CARPENTER'S ASSISTANT DOCUMENTATION: I attest that I was physically present for the [place] portions of the service and evaluated the patient with the Physician Job Interviewer, and I reviewed and discussed the case with the Physician Job Interviewer and made modifications to the Physician Job Interviewer's findings and plans of care as documented above SHIRA DIAZ Feb 25, 2024 11:24 KENNETH DRAKE MD Feb 26, 2024 13:47
--- NOTE | 2024-02-25 11:42 | NUR ---
DR. TYLOR Mix here rounding on patient. Plan of care reviewed with patient. Plan to have surgery this coming week once heart rate is controlled well.
--- NOTE | 2024-02-25 11:50 | PN ---
PROGRESS NOTE Date of Service: Feb 25, 2024 Time of Service: 11:48 SUBJECTIVE: [ Patient just came off her amiodarone drip this morning. Patient is being transitioned to orals. Patient is on a non-fat diet. Indicates some dull pain in the right upper quadrant.] REVIEW OF SYSTEMS PHYSICAL EXAM Awake, alert, oriented x3 Unlabored Regular rate and rhythm Abdomen soft, minimal tenderness in right upper quadrant. No rebound. No peritoneal signs., Vital Signs (last 8hr) Date Time Temp Pulse Resp B/P (MAP) Pulse Ox O2 Delivery O2 Flow Rate FiO2 02/25/24 10:51 108 134/75 02/25/24 10:50 108 18 134/75 98 Room Air 02/25/24 10:04 106 02/25/24 08:10 98 Room Air* 0 21 02/25/24 07:22 98.1 106 18 148/92 98 CPAP 02/25/24 06:27 117/66 02/25/24 06:26 108 02/25/24 05:41 110 02/25/24 04:00 98.1 67 18 106/66 99 Room Air LABS: Laboratory: Test 02/25/24 10:35 02/25/24 03:36 02/23/24 16:20 02/23/24 13:49 Range/Units Activated Partial Thromboplast Time 58.1 #H 26.3-35.5 SEC White Blood Count 8.3 4.8-10.8 K/uL Red Blood Count 4.50 4.00-5.50 MIL/uL Hemoglobin 13.6 12.0-16.0 g/dL Hematocrit 40.8 36-48 % Mean Corpuscular Volume 90.7 79-99 fL Mean Corpuscular Hemoglobin 30.2 27.0-33.0 pg Mean Corpuscular Hemoglobin Concent 33.3 32.0-36.0 g/dL Red Cell Distribution Width 14.2 11.0-15.5 % Platelet Count 189 130-400 K/uL Mean Platelet Volume 11.7 H 7.5-10.5 fL Immature Granulocyte % (Auto) 1.0 0-1 % Neutrophils (%) (Auto) 58.7 40.0-77.0 % Lymphocytes (%) (Auto) 26.2 21.0-51.0 % Monocytes (%) (Auto) 11.3 3.0-13.0 % Eosinophils (%) (Auto) 2.4 0.0-8.0 % Basophils (%) (Auto) 0.4 0.0-5.0 % Neutrophils # (Auto) 4.9 1.8-7.7 K/uL Lymphocytes # (Auto) 2.2 1.0-4.8 K/uL Monocytes # (Auto) 0.9 0.1-1.0 K/uL Eosinophils # (Auto) 0.20 0.00-0.70 K/uL Basophils # (Auto) 0.03 0.00-0.20 K/uL Absolute Immature Granulocyte (auto 0.08 0-1 K/uL Nucleated Red Blood Cells 0.0 0.0-0.19 % Sodium Level 141 136-145 mmol/L Potassium Level 3.5 3.5-5.1 mmol/L Chloride Level 106 101-111 mmol/L Carbon Dioxide Level 29 21-32 mmol/L Blood Urea Nitrogen 11 7-18 mg/dL Creatinine 0.9 0.5-1.0 mg/dL Glomerular Filtration Rate Calc 71 >90 mL/min Random Glucose 111 H 70-105 mg/dL Total Calcium 8.4 L 8.5-10.1 mg/dL Magnesium Level 2.30 1.80-2.40 mg/dL Total Bilirubin 0.7 # 0.2-1.0 mg/dL Aspartate Amino Transf (AST/SGOT) 16 10-37 U/L Alanine Aminotransferase (ALT/SGPT) 53 # 12-78 U/L Alkaline Phosphatase 87 50-136 U/L Total Protein 6.1 6.0-8.3 g/dL Albumin 2.4 L 3.5-5.0 g/dL Lipase 231 H 16-77 U/L Direct Bilirubin 0.4 H 0.0-0.3 mg/dL Blood Gas Specimen Type Arterial Arterial Blood pH 7.478 H 7.350-7.450 Arterial Blood Partial Pressure CO2 38 32-45 mmHg Arterial Blood Partial Pressure O2 69.9 L 83.0-108.0 mmHg Arterial Blood HCO3 27.6 21.0-28.0 mmol/L Arterial Blood Oxygen Saturation 94.8 94.0-98.0 % Arterial Blood Base Excess 4.0 H -2.0-3.0 mmol/L Hemoglobin (Blood Gas) 13.8 12.0-16.0 g/dL Sodium (Blood Gas) 137 136-145 MMOL/L Bedside Potassium (Blood Gas) 3.0 *L 3.4-4.5 MMOL/L Bedside Chloride (Blood Gas) 102 98-107 MMOL/L Bedside Glucose (Blood Gas) 135 H 65-95 MG/DL Bedside Ionized Calcium (Blood Gas) 1.10 L 1.15-1.33 MMOL/L Bedside Lactic Acid (Blood Gas) 1.23 H 0.36-0.75 MMOL/L Blood Gas Temperature 37.0 35.5-37.0 CELSIUS Blood Gas Vent Mode ROOM AIR ROOM AIR FiO2 21.0 % Blood Gas Specimen Comment [facility] / RADIOLOGY: [ ] ASSESSMENT: [Biliary pancreatitis ] PLAN: [ Still planning on a lap choly later this week. Awaiting patient to be stabilized on a cardiac meds before taking her to the OR. Risks associated with the surgery not limited to infection, bleeding, injury to surrounding structures has been explained to patient and she indicates she understands.] SPEEDY SNIDER MD Feb 25, 2024 11:50
[2024-02-25] MEDS: AMIOdarone 200 MG TABLET PO SCH (11:59)
--- NOTE | 2024-02-25 14:48 | NUR ---
Device Interrogation Attempted to interrogate loop recorder device with interrogator. However, IPAD device stated not supported. Attempted in different [employer] LINQ mik. However, no login and password information available to login. Unable to interrogate device. [employer] customer contact representative called and advertising account representative called back. Rep called back and stated to use [employer] LINQ; explained unable to login. [employer] advertising account representative stated would come and interrogate device if device was for sure from [employer]. Addendum: 02/25/24 at 1512 by GALINDO SETH RN RN Local [employer] advertising account representative called back and stated that most likely loop recorder is not active due to the age of the device. He is to communicate with Betty Miller NP about what readings off the device that he would be able to obtain and how.
[2024-02-25] MEDS: DIGOxin 250 MCG/ML 2ML AMP IV SCH (17:42)
[2024-02-25] MEDS: metoPROLOL tartRATE 50 MG TAB PO SCH (21:23)
[2024-02-26] VITALS (7 sets, daily range): BP systolic 104–152; BP diastolic 51–99; PULSE 65–118; RESP 20–24; TEMP 97.8–98.5; O2SAT 95
[2024-02-26 03:52] LABS: BASOPHILS # (AUTO) 0.04 K/uL (0.00-0.20); BASOPHILS % (AUTO) 0.4 % (0.0-5.0); EOSINOPHILS # (AUTO) 0.19 K/uL (0.00-0.70); EOSINOPHILS % (AUTO) 2.1 % (0.0-8.0); HEMATOCRIT 39.6 % (36-48); LYMPHOCYTES # (AUTO) 2.5 K/uL (1.0-4.8); LYMPHOCYTES % (AUTO) 27.3 % (21.0-51.0); MEAN CORPUSCULAR HGB CONC 32.8 g/dL (32.0-36.0); MEAN CORPUSCULAR VOLUME 91.5 fL (79-99); NEUTROPHILS # (AUTO) 5.4 K/uL (1.8-7.7); NEUTROPHILS % (AUTO) 58.1 % (40.0-77.0); PLATELET COUNT (AUTO) 210 K/uL (130-400); RED BLOOD CELL COUNT(AUTO) 4.33 MIL/uL (4.00-5.50); RED CELL DISTRIBUTION WIDTH 14.2 % (11.0-15.5); WHITE BLOOD COUNT (AUTO) 9.2 K/uL (4.8-10.8)
[2024-02-26 04:13] LABS: ALBUMIN 2.3 g/dL (3.5-5.0); BILIRUBIN,TOTAL 0.6 mg/dL (0.2-1.0); CREATININE 0.9 mg/dL (0.5-1.0); DIGOXIN 1.84 ng/mL (0.50-2.00); POTASSIUM 3.8 mmol/L (3.5-5.1); TOTAL PROTEIN, SERUM 5.8 g/dL (6.0-8.3)
--- NOTE | 2024-02-26 08:43 | PN ---
[facility] PROGRESS NOTE Date Patient Seen: Feb 26, 2024 Time of Visit: 08:39 Supervising Physician: Dr. Godfrey Primary Care Physician: Dr. Codey Cameron Outpatient Specialists: Inpatient Consults: Dr. Mix, Dr. Boone PROBLEM LIST: Acute on chronic pancreatitis, LAURA's score-1 (1% predicted mortality)--- 48 hour LAURA 2pts (1% predicted mortality) Acute cholecystitis Atrial fibrillation, with RVR- on anti-arrhythmics, no AC, history of ablation Intractable abdominal pain with nausea and vomiting H-pylori, treated Morbid obesity BMI 56 POOJA with home CPAP Hx. HTN, POOJA, Afib, H pylori Plan: IVF maintenance Continue merem Amiodarone, metoprolol, and diltiazem, cardiology input appreciated General surgery for cholecystectomy PPI Zofran prn HIDA scan with normal EF of GB. Trend lipase/LFT's Triglycerides normal Monitor and replace electrolytes, potassium Pain management Heparin drip INTERVAL HISTORY: [Patient has improved with less nausea vomiting and abdominal pain. Her lipase has significantly improved down to 1000. Her triglycerides were unremarkable at 37. Patient had her HIDA scan, pending reading. She was evaluated by General surgery and pending laparoscopic cholecystectomy tomorrow. She admits sensation of urinary retention. Not able to completely void urine. No fever, n/v currently.] 02/22 patient has an episode of AFib RVR overnight and was transferred into PCU for amiodarone drip per protocol. This morning patient remains with AFib RVR up to 140 despite being on amiodarone drip, diltiazem and beta-lanny. Patient is clinically diaphoretic not in acute distress not having any chest pain. Her lab this morning with WBC of 13.5 up from 5.6 her neutrophil is 89. Hemoglobin is within normal limits. Potassium otherwise is low at 3.0. Check magnesium. bicarb is 33 BUN 14 creatinine is 1.2 this is down from 1.3 yesterday. BNP is 400. Her lipase is down [place] 1700 [place] [address]. Check LDH to calculate LAURA's criteria. No abdominal pain at this time. Patient is hypovolemic, we will give her 30 cc/ kilogram of IV fluid now. Given intra-abdominal infection, we will up the antibiotic coverage from Zosyn to meropenem. We will need to send blood cultures as well. Continue to follow cultures. Gen surg has been consulted for possible cholecystitis. TSH is normal. Given AFib RVR, we can start patient on heparin drip per protocol. Patient has been seen by Dr. Bunn as outpatient on Multaq, will consult Cardiology. Home CPAP at night and nap time. Still ill, continue PCCU. 02/23 patient is awake alert oriented x3 no acute event overnight. Patient remains with AFib with rapid ventricular response overnight remaining on amiodarone drip was given digoxin yesterday with a brief improvement. Otherwise no fever with T-max 98.8. Her hematology with improved leukocytosis now at 10 down from 15 hemoglobin is stable. She is on merem. Chemistries with creatinine is 0.9. Potassium is 4.1 bicarb is 30. We will continue with current IV fluids. We will repeat lipase . Her liver function has normalized. Urine culture is negative to date. Blood culture is pending. Continue with amiodarone drip and keeping her in PCU. Pending laparoscopic cholecystectomy with intraoperative cholangiogram by surgery team when AFib RVR has resolved. 02/24 patient is awake alert oriented x3 not in acute distress. She denies any abdominal pain at this time, she denies any nausea and vomiting. No Acute events overnight patient remains on amiodarone drip for AFib RVR. She received dose of digoxin yesterday now on diltiazem 240 mg. Patient oxygen metoprolol 100 mg b.i.d.. She received p.r.n. metoprolol 2.5 mg q.6 hours. Heart rate is 60s to 100s, blood pressure is 117/66. She is on room air saturation oxygen 99%. This morning is remarkable for albumin of 2.4 lipase is down to 230. WBC is down to 8.3 as well and hemoglobin is stable. Blood culture and urine culture are negative. Continue with current on regimen. Patient is pending laparoscopic cholecystectomy. 02/25 patient is lying down in bed not in acute distress having her breakfast, no acute events overnight. Patient remains with AFib RVR especially when she is moving around. Otherwise she has completed amiodarone gtt and was transitioned to PO. Patient is on heparin drip, diltiazem 240 mg p.o., metoprolol 150 mg b.i.d.. Cardiology input is much appreciated. Otherwise we will continue with antibiotic with meropenem given intra-abdominal infection. Patient is not complaining of any pain at this time. She has loose stool today. Remarkable lab this morning with lipase of 270 this is up from 231. Given pancreatitis though with low ALURA's score, the fact that her lipase enzyme increases slightly, we will resume with the IV fluids. Low fat diet. Send lab in the morning. Continue to monitor patient closely. REVIEW OF SYSTEMS: 12 point ROS reviewed with patient. Pertinent positives mentioned above. Otherwise negative. PHYSICAL EXAM: GENERAL: alert, weak, awake oriented x 3 HEENT: EOMI, Sclera non icteric, moist mucosa NECK: Supple, no JVD, trachea midline LUNGS: Clear breath sounds bilaterally. No wheezes HEART: Regular rate and rhythm. Normal S1 and S2, without murmurs ABD: Abdomen soft, nontender. Bowel sounds present EXT: No clubbing cyanosis or edema NEURO: Alert and oriented to person, follows commands Vital Signs (last 8hr) Date Time Temp Pulse Resp B/P (MAP) Pulse Ox O2 Delivery O2 Flow Rate FiO2 02/26/24 07:00 98.2 98 24 127/80 98 Room Air 02/26/24 04:57 98.4 74 20 145/92 97 CPAP 02/26/24 00:45 98.1 79 20 147/72 98 CPAP LABS: Hematology Labs: Test 02/26/24 03:35 Range/Units White Blood Count 9.2 4.8-10.8 K/uL Red Blood Count 4.33 4.00-5.50 MIL/uL Hemoglobin 13.0 12.0-16.0 g/dL Hematocrit 39.6 36-48 % Mean Corpuscular Volume 91.5 79-99 fL Mean Corpuscular Hemoglobin 30.0 27.0-33.0 pg Mean Corpuscular Hemoglobin Concent 32.8 32.0-36.0 g/dL Red Cell Distribution Width 14.2 11.0-15.5 % Platelet Count 210 130-400 K/uL Mean Platelet Volume 11.6 H 7.5-10.5 fL Immature Granulocyte % (Auto) 1.1 H 0-1 % Neutrophils (%) (Auto) 58.1 40.0-77.0 % Lymphocytes (%) (Auto) 27.3 21.0-51.0 % Monocytes (%) (Auto) 11.0 3.0-13.0 % Eosinophils (%) (Auto) 2.1 0.0-8.0 % Basophils (%) (Auto) 0.4 0.0-5.0 % Neutrophils # (Auto) 5.4 1.8-7.7 K/uL Lymphocytes # (Auto) 2.5 1.0-4.8 K/uL Monocytes # (Auto) 1.0 0.1-1.0 K/uL Eosinophils # (Auto) 0.19 0.00-0.70 K/uL Basophils # (Auto) 0.04 0.00-0.20 K/uL Absolute Immature Granulocyte (auto 0.10 0-1 K/uL Nucleated Red Blood Cells 0.0 0.0-0.19 % Chemistry Labs: Test 02/26/24 03:35 02/25/24 03:36 Range/Units Sodium Level 140 136-145 mmol/L Potassium Level 3.8 3.5-5.1 mmol/L Chloride Level 105 101-111 mmol/L Carbon Dioxide Level 30 21-32 mmol/L Blood Urea Nitrogen 12 7-18 mg/dL Creatinine 0.9 0.5-1.0 mg/dL Glomerular Filtration Rate Calc 71 >90 mL/min Random Glucose 110 H 70-105 mg/dL Total Calcium 8.3 L 8.5-10.1 mg/dL Total Bilirubin 0.6 0.2-1.0 mg/dL Aspartate Amino Transf (AST/SGOT) 19 10-37 U/L Alanine Aminotransferase (ALT/SGPT) 40 # 12-78 U/L Alkaline Phosphatase 78 50-136 U/L Total Protein 5.8 L 6.0-8.3 g/dL Albumin 2.3 L 3.5-5.0 g/dL Lipase 273 H 16-77 U/L Magnesium Level 2.30 1.80-2.40 mg/dL Coagulation Labs: Test 02/25/24 16:03 Range/Units Activated Partial Thromboplast Time 65.8 H 26.3-35.5 SEC DIAGNOSTICS / RADIOLOGY RESULTS: [ ] PLAN NEURO: Minimize central acting medications as possible. Maintain fall precautions, adequate lighting during the day PULMONARY: Supplemental 02 as needed. Maintain aspiration precautions at all times CARDIOVASCULAR: Follow hemodynamics. Vital signs per facility protocol Amiodarone IVF BB Multag per cardiology GI & NUTRITION: Continue with nutritional support. Continue stool softeners and laxatives as needed. KIDNEYS & ELECTROLYTES: Strict monitoring of intake, output and overall fluid balance. Avoid nephrotoxic medications to the extent possible. Medications to be dosed according to renal function. Monitor electrolytes and replace as needed ENDOCRINE: Maintain blood glucose between 100-180 at all times. Hypoglycemia protocol in place INFECTIOUS DISEASE: Trend temperature, WBC and procalcitonin level Follow cultures, deescalate antibiotics as soon as possible. Panculture if new onset fever Zosyn 02/20-02/22 Meropenem 02/22- ONCOLOGY/HEMATOLOGY/COAGULATION: Monitor for s/s of bleeding Monitor hemoglobin, coagulation studies as needed SKIN: Pressure ulcer prevention per facility protocol Specialty mattress ORTHO/REHAB: Continue PT/OT Prophylaxis: Continue GI and DVT prophylaxis Code Status: Full Resuscitation Disposition: TBD Other: Total patient care time exceeds 35 minutes excluding all procedures. PATRICIA SHARP [facility] Feb 26, 2024 08:43
--- NOTE | 2024-02-26 09:24 | EKG ---
[facility] Test Date: 2024-02-26 Test Time: 06:06:48 Pat Name: ANGELA PARDO Department: [facility] Room: 204 1 Gender: F [employer] Machine Operator Helper: radha : 1955 Requested By: SHIRA DIAZ Order Number: [id number] Reading MD: Isai Casas Measurements Intervals [place] Rate: 113 P: 0 IN: 0 QRS: -31 QRSD: 93 T: 0 QT: 347 QTc: 477 Interpretive Statements Atrial fibrillation Left axis deviation Low voltage, precordial leads Compared to ECG 02/22/2024 11:54:46 Ventricular premature complex(es) no longer present Myocardial infarct finding no longer present Electronically Signed On 02-27-2024 19:58:29 OPERATIONS RESEARCH GROUP MANAGER by Isai Casas Please click the below link to view image of tracing.
[2024-02-26] MEDS: AMIOdarone 200 MG TABLET PO SCH (09:42)
--- NOTE | 2024-02-26 10:14 | PN ---
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 She was found to have recurrent [place] [address] She was also hypokalemic on admission with a potassium level 2.8, she had leukocytosis up to 15,000. She was evaluated by General surgery and plans were for the patient to undergo laparoscopic cholecystectomy. Unfortunately, on 02/22/2024, the patient was noted to be in atrial fibrillation with rapid ventricular response in the 130-140 beat per minute range despite being on diltiazem ER 240 mg daily and metoprolol tartrate 100 mg p.o. b.i.d.. She was initiated on IV amiodarone bolus plus infusion. She was initiated on IV heparin 02/23/2024. Her last dose of Eliquis had been 02/21/2024. She has had difficult to control heart rate response to her atrial fibrillation with heart rates into the 140 beat per minute range on 02/24/2024 on 02/25/2024. She was given digoxin 0.25 mg IV x4 doses on 02/24/2024, an extra dose on 02/25/2024 and her metoprolol tartrate was advanced to her home dose of 150 mg p.o. b.i.d. on 02/25/2024. Overnight, she has continued to demonstrate atrial fibrillation with a rate in the 90-120 beat per minute range with only brief episodes into the 130 beat per minute range. She offers no complaints of shortness of breath including orthopnea or PND. She has remained on IV heparin. A follow-up 2D echocardiogram on 02/23/2024 demonstrated moderate concentric LVH and an LVEF of 30%. This is in comparison to a gated EF of 55% by her prior Lexiscan Cardiolite stress test 04/29/2023 (patient was in a normal sinus rhythm). Physical Examination: GENERAL: Morbidly obese female, lying in bed, No acute distress. No complaints of abdominal pain HEAD: Normal with no signs of head trauma. EYES: PERRLA, EOMI, conjunctiva and sclera normal. NECK: Supple without JVD. There is no tenderness, lymphadenopathy, or masses. No thyromegaly. Normal carotid upstrokes without bruits. LUNGS: Clear breath sounds bilaterally. No wheezes, or rhonchi. HEART: Irregularly irregular underlying rhythm, no obvious murmur, gallop or rub. VASC: Peripheral pulses +2 bilaterally. EXT: No clubbing, cyanosis or edema. NEURO: Awake, alert, and oriented x3. No focal neurological deficits noted. Laboratory: Hematology Labs: Test 02/26/24 03:35 Range/Units White Blood Count 9.2 4.8-10.8 K/uL Red Blood Count 4.33 4.00-5.50 MIL/uL Hemoglobin 13.0 12.0-16.0 g/dL Hematocrit 39.6 36-48 % Mean Corpuscular Volume 91.5 79-99 fL Mean Corpuscular Hemoglobin 30.0 27.0-33.0 pg Mean Corpuscular Hemoglobin Concent 32.8 32.0-36.0 g/dL Red Cell Distribution Width 14.2 11.0-15.5 % Platelet Count 210 130-400 K/uL Mean Platelet Volume 11.6 H 7.5-10.5 fL Immature Granulocyte % (Auto) 1.1 H 0-1 % Neutrophils (%) (Auto) 58.1 40.0-77.0 % Lymphocytes (%) (Auto) 27.3 21.0-51.0 % Monocytes (%) (Auto) 11.0 3.0-13.0 % Eosinophils (%) (Auto) 2.1 0.0-8.0 % Basophils (%) (Auto) 0.4 0.0-5.0 % Neutrophils # (Auto) 5.4 1.8-7.7 K/uL Lymphocytes # (Auto) 2.5 1.0-4.8 K/uL Monocytes # (Auto) 1.0 0.1-1.0 K/uL Eosinophils # (Auto) 0.19 0.00-0.70 K/uL Basophils # (Auto) 0.04 0.00-0.20 K/uL Absolute Immature Granulocyte (auto 0.10 0-1 K/uL Nucleated Red Blood Cells 0.0 0.0-0.19 % Chemistry Labs: Test 02/26/24 03:35 02/25/24 03:36 Range/Units Sodium Level 140 136-145 mmol/L Potassium Level 3.8 3.5-5.1 mmol/L Chloride Level 105 101-111 mmol/L Carbon Dioxide Level 30 21-32 mmol/L Blood Urea Nitrogen 12 7-18 mg/dL Creatinine 0.9 0.5-1.0 mg/dL Glomerular Filtration Rate Calc 71 >90 mL/min Random Glucose 110 H 70-105 mg/dL Total Calcium 8.3 L 8.5-10.1 mg/dL Total Bilirubin 0.6 0.2-1.0 mg/dL Aspartate Amino Transf (AST/SGOT) 19 10-37 U/L Alanine Aminotransferase (ALT/SGPT) 40 # 12-78 U/L Alkaline Phosphatase 78 50-136 U/L Total Protein 5.8 L 6.0-8.3 g/dL Albumin 2.3 L 3.5-5.0 g/dL Lipase 273 H 16-77 U/L Magnesium Level 2.30 1.80-2.40 mg/dL Coagulation Labs: Test 02/25/24 16:03 Range/Units Activated Partial Thromboplast Time 65.8 H 26.3-35.5 SEC Diagnostics / Radiology: 2D echocardiogram 02/23/2024: Conclusion LVEF is 30%. Global hypokinesia. The right ventricle is severely dilated. The right ventricular systolic function is severely depressed. The left atrium is moderately dilated. The right atrium is moderately dilated. IVC is dilated and collapses <50% with inspiration. Impression and Plan: Acute on chronic pancreatitis Acute cholecystitis: -symptomatically improved -plans for laparoscopic cholecystectomy currently on hold pending improvement of her atrial fibrillation rate Persistent atrial fibrillation with RVR noted 02/22/2024 Hx atrial fibrillation pulmonary vein isolation on 08/24/2022 Long-term anticoagulation with Eliquis (last dose 02/21/2024): -the patient has required both diltiazem ER 240 mg daily and metoprolol 150 mg p.o. b.i.d. at home for rate control -her digoxin was previously withdrawn by Dr. Bunn but she did require digoxin 02/24/2024 for added rate control, she remains off p.o. digoxin for now -her last interrogation of her loop recorder July 2023 demonstrated an atrial fibrillation burden of 13.1%, attempted to interrogate her loop recorder on 02/25/2024 but there was no communication with the device indicating that the battery has been depleted -Eliquis currently on hold and the patient has been initiated on IV heparin drip 02/23/2024 -continue metoprolol tartrate 150 mg p.o. b.i.d., diltiazem ER 240 mg p.o. daily -continue amiodarone 400 mg p.o. daily -obtain EP consultation and follow-up in a.m. Hypokalemia on admission with a potassium of 2.8: -continue potassium and magnesium supplementation to keep potassium of 4.0 and magnesium of 2.0 -her hypokalemia was likely related to vomiting prior to admission Tachycardia mediated cardiomyopathy with an LVEF of 35-40% and stage III diastolic dysfunction by 2D echocardiogram 03/16/2022, gated EF of 55% by Lexiscan Cardiolite stress test (in a normal sinus rhythm) 04/29/2023 and an LVEF of 30% by follow-up 2D echocardiogram 02/23/2024: -for now we will cautiously continue with diltiazem, metoprolol tartrate to her home dose of 150 mg p.o. b.i.d. Comorbidities: Hypertension Abnormal Lexiscan Cardiolite stress test 04/29/2023 demonstrating a small size, mild intensity, fully reversible defect in the apical inferior and inferolateral ayon, no regional wall motion abnormalities and a gated EF of 55% CT Heart Saver score of 108 on 05/21/2021 POOJA on CPAP Morbid obesity Hx of acute pancreatitis with secondary inflammation of the gallbladder [employer] Loop recorder interrogation 07/25/2023 demonstrated paroxysmal atrial fibrillation with longest episode of 10 hours and atrial fibrillation burden of 13.1%, with no communication with device on attempt reinterrogation 02/25/2024 indicating battery depletion PHYSICIAN ATTESTATION OF PHYSICIAN EMAIL MARKETING COORDINATOR DOCUMENTATION: I attest that I was physically present for the [place] portions of the service and evaluated the patient with the Physician Wrapper Sheeter, and I reviewed and discussed the case with the Physician Wrapper Sheeter and made modifications to the Physician Wrapper Sheeter's findings and plans of care as documented above SHIRA DIAZ Feb 26, 2024 10:14 KENNETH DRAKE MD Feb 26, 2024 15:32
--- NOTE | 2024-02-26 10:55 | PN ---
PROGRESS NOTE Date of Service: Feb 26, 2024 Time of Service: 10:53 SUBJECTIVE: [ Patient was off her amiodarone drip yesterday and started on orals un fortunately patient reverted back into AFib with a heart rate up in the 130s and 140s. Patient denies any pain right now. Patient is scheduled to see an pin worker either today or tomorrow.] REVIEW OF SYSTEMS PHYSICAL EXAM Awake, alert, oriented x3 Unlabored Regular rate and rhythm Abdomen soft, minimal tenderness in right upper quadrant. No rebound. No peritoneal signs., Vital Signs (last 8hr) Date Time Temp Pulse Resp B/P (MAP) Pulse Ox O2 Delivery O2 Flow Rate FiO2 02/26/24 07:00 98.2 98 24 127/80 98 Room Air 02/26/24 04:57 98.4 74 20 145/92 97 CPAP LABS: Laboratory: Test 02/26/24 03:35 02/25/24 16:03 02/25/24 03:36 Range/Units White Blood Count 9.2 4.8-10.8 K/uL Red Blood Count 4.33 4.00-5.50 MIL/uL Hemoglobin 13.0 12.0-16.0 g/dL Hematocrit 39.6 36-48 % Mean Corpuscular Volume 91.5 79-99 fL Mean Corpuscular Hemoglobin 30.0 27.0-33.0 pg Mean Corpuscular Hemoglobin Concent 32.8 32.0-36.0 g/dL Red Cell Distribution Width 14.2 11.0-15.5 % Platelet Count 210 130-400 K/uL Mean Platelet Volume 11.6 H 7.5-10.5 fL Immature Granulocyte % (Auto) 1.1 H 0-1 % Neutrophils (%) (Auto) 58.1 40.0-77.0 % Lymphocytes (%) (Auto) 27.3 21.0-51.0 % Monocytes (%) (Auto) 11.0 3.0-13.0 % Eosinophils (%) (Auto) 2.1 0.0-8.0 % Basophils (%) (Auto) 0.4 0.0-5.0 % Neutrophils # (Auto) 5.4 1.8-7.7 K/uL Lymphocytes # (Auto) 2.5 1.0-4.8 K/uL Monocytes # (Auto) 1.0 0.1-1.0 K/uL Eosinophils # (Auto) 0.19 0.00-0.70 K/uL Basophils # (Auto) 0.04 0.00-0.20 K/uL Absolute Immature Granulocyte (auto 0.10 0-1 K/uL Nucleated Red Blood Cells 0.0 0.0-0.19 % Sodium Level 140 136-145 mmol/L Potassium Level 3.8 3.5-5.1 mmol/L Chloride Level 105 101-111 mmol/L Carbon Dioxide Level 30 21-32 mmol/L Blood Urea Nitrogen 12 7-18 mg/dL Creatinine 0.9 0.5-1.0 mg/dL Glomerular Filtration Rate Calc 71 >90 mL/min Random Glucose 110 H 70-105 mg/dL Total Calcium 8.3 L 8.5-10.1 mg/dL Total Bilirubin 0.6 0.2-1.0 mg/dL Aspartate Amino Transf (AST/SGOT) 19 10-37 U/L Alanine Aminotransferase (ALT/SGPT) 40 # 12-78 U/L Alkaline Phosphatase 78 50-136 U/L Total Protein 5.8 L 6.0-8.3 g/dL Albumin 2.3 L 3.5-5.0 g/dL Lipase 273 H 16-77 U/L Digoxin Level 1.84 # 0.50-2.00 ng/mL Activated Partial Thromboplast Time 65.8 H 26.3-35.5 SEC Magnesium Level 2.30 1.80-2.40 mg/dL DIAGNOSTICS / RADIOLOGY: [ ] ASSESSMENT: [Biliary pancreatitis ] PLAN: [ Unfortunately because the patient's heart rates up in the 130s and 140s I can not operate on at this point in time. We will await input from the pin worker. Once heart rate is better controlled whether it is by medication or by the implantation of a regulating device then we will plan for laparoscopic cholecystectomy with intraoperative cholangiogram. Risks associated with the procedure not limited to infection, bleeding, injury to surrounding structures has been explained to patient and she indicates she understands.] SPEEDY SNIDER MD Feb 26, 2024 10:55
--- NOTE | 2024-02-26 22:13 | NUR ---
PT LAYING IN BED WITH THE HEAD OF THE BED ELEVATED.PT DOES NOT APPEAR TO BE IN ANY DISTRESS.INSTRUCTED PT TO USE THE CALL LIGHT FOR ANY ASSISTANCE WHEN NEEDED.PT UNDERSTOOD BED IS LOW AND LOCKED CALL LIGHT WITHIN REACH .
[2024-02-27] VITALS (24 sets, daily range): BP systolic 124–162; BP diastolic 53–96; PULSE 53–129; RESP 15–20; TEMP 97.4–98.9; O2SAT 95–96
[2024-02-27] MEDS: LACTATED RINGERS 1000ML 1,000 ML IV SCH (01:10)
[2024-02-27 04:02] LABS: BASOPHILS # (AUTO) 0.05 K/uL (0.00-0.20); BASOPHILS % (AUTO) 0.5 % (0.0-5.0); EOSINOPHILS # (AUTO) 0.17 K/uL (0.00-0.70); EOSINOPHILS % (AUTO) 1.7 % (0.0-8.0); HEMATOCRIT 40.3 % (36-48); IMMATURE GRANULOCYTE ABSOLUTE 0.11 K/uL (0-1); LYMPHOCYTES # (AUTO) 2.7 K/uL (1.0-4.8); LYMPHOCYTES % (AUTO) 27.5 % (21.0-51.0); MEAN CORPUSCULAR HEMOGLOBIN 30.3 pg (27.0-33.0); MEAN CORPUSCULAR HGB CONC 32.8 g/dL (32.0-36.0); MEAN CORPUSCULAR VOLUME 92.4 fL (79-99); MONOCYTES # (AUTO) 0.8 K/uL (0.1-1.0); MONOCYTES % (AUTO) 8.5 % (3.0-13.0); NEUTROPHILS % (AUTO) 60.7 % (40.0-77.0); PLATELET COUNT (AUTO) 228 K/uL (130-400); RED BLOOD CELL COUNT(AUTO) 4.36 MIL/uL (4.00-5.50); RED CELL DISTRIBUTION WIDTH 14.4 % (11.0-15.5); WHITE BLOOD COUNT (AUTO) 9.9 K/uL (4.8-10.8)
[2024-02-27 05:01] LABS: ALBUMIN 2.4 g/dL (3.5-5.0); BILIRUBIN,TOTAL 0.5 mg/dL (0.2-1.0); CREATININE 0.9 mg/dL (0.5-1.0); DIGOXIN 1.22 ng/mL (0.50-2.00); MAGNESIUM 1.9 mg/dL (1.80-2.40); POTASSIUM 3.6 mmol/L (3.5-5.1); TOTAL PROTEIN, SERUM 6.1 g/dL (6.0-8.3)
--- NOTE | 2024-02-27 09:39 | CONS ---
HPI: This is a 68 year old female with a history of persistent atrial fibrillation status post pulmonary vein isolation 08/24/2022, history of tachycardia mediated cardiomyopathy, obstructive sleep apnea on CPAP and morbid obesity. She was admitted 02/21/2024 due to atrial fibrillation with rapid ventricular response in the setting of acute biliary pancreatitis. She is pending laparoscopic cholecystectomy with intraoperative cholangiogram, however the surgery has been deferred due to persistent atrial fibrillation with rapid ventricular response. She was started on amiodarone infusion and transitioned to oral amiodarone 400 mg daily. She is currently on Cardizem 240 mg once daily, metoprolol tartrate 150 mg twice daily and IV heparin. She received and IV load of digoxin 250 mcg on 02/25/2024. She also received Her last dosage of Eliquis 5 mg was 02/20/2024 in the evening. She was administered Lovenox 40 mg and 60 mg, then started on IV heparin 02/23/2024. She underwent echocardiogram 02/23/2024 which demonstrates an ejection fraction 30%, moderate LVH, moderately dilated left atrium, mild mitral valve regurgitation and trace tricuspid valve regurgitation. She has a history of tachycardia mediated cardiomyopathy with an ejection fraction of 30% (12/23/2018), ejection fraction of 50-55% (03/23/2019), ejection fraction 35-40% (03/16/2022) and an ejection fraction of 60-65% (06/30/2022). She is currently in atrial fibrillation with heart rates in the 130s. She also presented with hypokalemia with a potassium of 2.8, currently 3.6. Lipase trend is as follows: 53111 > 1765 > 232 > 231 > 273 > 216. White blood count 9.9, hemoglobin 13.2, hematocrit 40.3, platelets 228, creatinine 0.9, magnesium 1.90. Urine culture revealed Gram-positive rods resembling diphtheroids. She presented with epigastric and right upper quadrant pain which had worsened over several days. On the day admit admission, she states that the pain was severe. She believes that she had episodes of atrial fibrillation but states that she attributed all of her symptoms to her gallbladder. She was last seen in the office in July 2023 and had documented episodes of atrial fibrillation lasting up to 10 hours on her loop recorder. She had been maintained on Multaq 400 mg twice daily and Eliquis 5 mg twice daily. Catheter ablation have been discussed, however she wished to defer the procedure at that time. Patient History: PAST MEDICAL HISTORY: As noted above. SOCIAL HISTORY: She is a nonsmoker. She lives at home with her family. SURGICAL HISTORY: Pulmonary vein isolation 08/24/2022 Bilateral total knee arthroplasty x4 Allergies: Coded Allergies: Latex, Natural Rubber (Verified Allergy, Unknown, 12/23/18) codeine (Verified Allergy, Unknown, 12/23/18) Additional RoS: Negative with the exception of the HPI. Vital Signs Vital Signs 02/26/24 02/27/24 02/27/24 22:13 04:30 08:36 Temp 97.9 Pulse 129 Resp 18 B/P (MAP) 124/82 Pulse Ox 95 O2 Delivery Room Air O2 Flow Rate 0 FiO2 21 Appearance: Obese Eyes: EOM Normal, Normal Conjuctivae/eyelid Ear/Nose/Mouth/Throat: Landmarks WNL Neck: Symmetric, trach midline Cardiovascular: No Edema, Abnormal (irregularly irregular rhythm) Respiratory: Lungs clear G.I.: Abnormal (abdomen distened) Psychology: Insight WNL, Orientation WNL, Memory WNL Laboratory Tests Test 02/25/24 10:35 02/25/24 16:03 02/26/24 03:35 02/26/24 16:48 Range/Units Activated Partial Thromboplast Time 58.1 65.8 47.8 26.3-35.5 SEC White Blood Count 9.2 4.8-10.8 K/uL Red Blood Count 4.33 4.00-5.50 MIL/uL Hemoglobin 13.0 12.0-16.0 g/dL Hematocrit 39.6 36-48 % Mean Corpuscular Volume 91.5 79-99 fL Mean Corpuscular Hemoglobin 30.0 27.0-33.0 pg Mean Corpuscular Hemoglobin Concent 32.8 32.0-36.0 g/dL Red Cell Distribution Width 14.2 11.0-15.5 % Platelet Count 210 130-400 K/uL Mean Platelet Volume 11.6 7.5-10.5 fL Immature Granulocyte % (Auto) 1.1 0-1 % Neutrophils (%) (Auto) 58.1 40.0-77.0 % Lymphocytes (%) (Auto) 27.3 21.0-51.0 % Monocytes (%) (Auto) 11.0 3.0-13.0 % Eosinophils (%) (Auto) 2.1 0.0-8.0 % Basophils (%) (Auto) 0.4 0.0-5.0 % Neutrophils # (Auto) 5.4 1.8-7.7 K/uL Lymphocytes # (Auto) 2.5 1.0-4.8 K/uL Monocytes # (Auto) 1.0 0.1-1.0 K/uL Eosinophils # (Auto) 0.19 0.00-0.70 K/uL Basophils # (Auto) 0.04 0.00-0.20 K/uL Absolute Immature Granulocyte (auto 0.10 0-1 K/uL Nucleated Red Blood Cells 0.0 0.0-0.19 % Sodium Level 140 136-145 mmol/L Potassium Level 3.8 3.5-5.1 mmol/L Chloride Level 105 101-111 mmol/L Carbon Dioxide Level 30 21-32 mmol/L Blood Urea Nitrogen 12 7-18 mg/dL Creatinine 0.9 0.5-1.0 mg/dL Glomerular Filtration Rate Calc 71 >90 mL/min Random Glucose 110 70-105 mg/dL Total Calcium 8.3 8.5-10.1 mg/dL Total Bilirubin 0.6 0.2-1.0 mg/dL Aspartate Amino Transf (AST/SGOT) 19 10-37 U/L Alanine Aminotransferase (ALT/SGPT) 40 12-78 U/L Alkaline Phosphatase 78 50-136 U/L Total Protein 5.8 6.0-8.3 g/dL Albumin 2.3 3.5-5.0 g/dL Lipase 273 16-77 U/L Digoxin Level 1.84 0.50-2.00 ng/mL Test 02/27/24 03:54 Range/Units White Blood Count 9.9 4.8-10.8 K/uL Red Blood Count 4.36 4.00-5.50 MIL/uL Hemoglobin 13.2 12.0-16.0 g/dL Hematocrit 40.3 36-48 % Mean Corpuscular Volume 92.4 79-99 fL Mean Corpuscular Hemoglobin 30.3 27.0-33.0 pg Mean Corpuscular Hemoglobin Concent 32.8 32.0-36.0 g/dL Red Cell Distribution Width 14.4 11.0-15.5 % Platelet Count 228 130-400 K/uL Mean Platelet Volume 11.0 7.5-10.5 fL Immature Granulocyte % (Auto) 1.1 0-1 % Neutrophils (%) (Auto) 60.7 40.0-77.0 % Lymphocytes (%) (Auto) 27.5 21.0-51.0 % Monocytes (%) (Auto) 8.5 3.0-13.0 % Eosinophils (%) (Auto) 1.7 0.0-8.0 % Basophils (%) (Auto) 0.5 0.0-5.0 % Neutrophils # (Auto) 6.0 1.8-7.7 K/uL Lymphocytes # (Auto) 2.7 1.0-4.8 K/uL Monocytes # (Auto) 0.8 0.1-1.0 K/uL Eosinophils # (Auto) 0.17 0.00-0.70 K/uL Basophils # (Auto) 0.05 0.00-0.20 K/uL Absolute Immature Granulocyte (auto 0.11 0-1 K/uL Nucleated Red Blood Cells 0.0 0.0-0.19 % Sodium Level 141 136-145 mmol/L Potassium Level 3.6 3.5-5.1 mmol/L Chloride Level 104 101-111 mmol/L Carbon Dioxide Level 31 21-32 mmol/L Blood Urea Nitrogen 12 7-18 mg/dL Creatinine 0.9 0.5-1.0 mg/dL Glomerular Filtration Rate Calc 71 >90 mL/min Random Glucose 103 70-105 mg/dL Total Calcium 8.6 8.5-10.1 mg/dL Magnesium Level 1.90 1.80-2.40 mg/dL Total Bilirubin 0.5 0.2-1.0 mg/dL Aspartate Amino Transf (AST/SGOT) 34 10-37 U/L Alanine Aminotransferase (ALT/SGPT) 44 12-78 U/L Alkaline Phosphatase 80 50-136 U/L Total Protein 6.1 6.0-8.3 g/dL Albumin 2.4 3.5-5.0 g/dL Lipase 216 16-77 U/L Digoxin Level 1.22 0.50-2.00 ng/mL ASSESSMENT: 1. Persistent atrial fibrillation with rapid ventricular response. 2. Acute biliary pancreatitis. 3. Dilated cardiomyopathy with an ejection fraction of 30% on this admission with a history of tachycardia mediated cardiomyopathy. 4. Hypokalemia. PLAN: Discussed with Dr. Barnes. 1. She has been in persistent atrial fibrillation with rapid ventricular response with the exact duration unknown. Unfortunately, her loop recorder could not be interrogated to determine when the episode began. She is pending laparoscopic cholecystectomy, however the procedure has been deferred due to atrial fibrillation with rapid ventricular response. 2. At this time recommend EFE guided cardioversion to restore sinus rhythm. We have spoken with Oracio Tai physician assistant center director with Dr. Casas. Plan for EFE guided cardioversion this afternoon. The patient will be made NPO now. 3. Continue amiodarone 400 mg daily, metoprolol tartrate 150 mg twice daily and IV heparin. After sinus rhythm has been restored, discontinue diltiazem due to the cardiomyopathy. 4. Plan for repeat echocardiogram during this admission. 5. We briefly discussed redo catheter ablation, and she is now open to the procedure. This will be discussed further as an outpatient. KEE CAMPO Feb 27, 2024 09:39
[2024-02-27] MEDS ORDERED: LIDOCAINE HCL 2% VISCOUS 15 ML UDCUP PO ONE (11:30)
[2024-02-27] MEDS: LIDOCAINE HCL 2% VISCOUS 15 ML UDCUP ONE (12:59)
[2024-02-27] MEDS ORDERED: SUCCINYLCHOLINE CHLORIDE 20 MG/ML 10 ML VIAL ONE (13:10)
[2024-02-27] MEDS ORDERED: proPOFol 10 MG/ML 20ML VIAL IV ONE (13:10)
[2024-02-27] MEDS ORDERED: LIDOCAINE PF 100MG/5ML (2%) SYRINGE 5ML ONE (13:10)
[2024-02-27] MEDS ORDERED: ATROPINE 1MG SYG IVP ONE (13:10)
[2024-02-27] MEDS: metoCLOPRAmide 10 MG/2 ML VIAL ONE (13:21)
--- NOTE | 2024-02-27 13:40 | NUR ---
PT WAS TAKEN DOWNSTAIRS FOR EFE AND CARDIOVERSION. PT WAS ADVISED OF ANESTHESIA REQUESTING PT TO HAVE PROCEDURE IN THE GI LAB AREA AND DR. PATTON AWARE.
[2024-02-27] MEDS ORDERED: rocuRONium bROMide 10MG/1ML 5ML VL ONE (14:10)
[2024-02-27] MEDS ORDERED: GLYCOPYRROLATE 0.2 MG/ML 5 ML VIAL ONE (14:10)
[2024-02-27] MEDS: SUGAMMADEX SODIUM 200 MG/2 ML VIAL IV ONE (14:12)
[2024-02-27] MEDS: FAMOTIDINE 20MG VIAL IV ONE (14:13)
--- NOTE | 2024-02-27 14:44 | PRN ---
Procedure Note INDICATION FOR PROCEDURE: [] Hypercoagulable state Tachycardia induced cardiomyopathy Atrial fibrillation with rapid ventricular response Acute combined congestive heart failure present on admission level of severity 3 PROCEDURE: [] Please see separate anesthesiology report Transesophageal echocardiogram Direct current cardioversion with synchronized electricity at 200 joules x1 DATE OF PROCEDURE: February 27, 2024 PARK MAINTAINER: Isai Casas MD, F.A.C.C. PROCEDURE NOTE: [] Patient was brought down to Gastroenterology lab under the assistance of Anesthesiology considering patient's body habitus it was felt anesthesiology should assist with sedation. After an extensive review of patient's history as well as physical examination it was felt patient would best be served with full anesthesia. Please see separate report regarding patient's anesthesiology component of this procedure FINDINGS: [] Please see separate EFE report but there was no evidence of left atrial appendage thrombus or clot with normal left atrial appendage velocities. There was noted spontaneous echo contrast seen throughout left atrium. After diagnostic transesophageal echocardiogram was performed 200 joules of direct current electricity was administered synchronized x1 with return to a sinus mechanism IMPRESSION: [] Successful direct current cardioversion back to normal sinus rhythm PLAN: [] We will continue to follow. Patient will remain on telemetry. Anticoagulation should be resumed once surgery has been performed. ISAI CASAS MD Feb 27, 2024 14:44
[2024-02-27] MEDS: IpraTROPium/alBUTERol SULFATE 3 ML SOLUTION IH ONE (15:07)
[2024-02-27] MEDS: DOXYCYCLINE 100MG+NS 250ML 250 ML IV SCH (16:00)
[2024-02-27] MEDS: LIPASE/PROTEASE/AMYLASE 5000/17000/24000 PO SCH (16:00)
--- NOTE | 2024-02-27 16:04 | PN ---
[facility] PROGRESS NOTE Date Patient Seen: Feb 27, 2024 Time of Visit: 16:02 Supervising Physician: Denton Nava Primary Care Physician: Dr. Codey Cameron Outpatient Specialists: Inpatient Consults: Dr. Mix, Dr. Boone PROBLEM LIST: Acute on chronic pancreatitis, LAURA's score-1 (1% predicted mortality)--- 48 hour LAURA 2pts (1% predicted mortality) Acute cholecystitis Atrial fibrillation, with RVR- on anti-arrhythmics, no AC, history of ablation Gram positive Gerald cystitis- Diphtheroid Intractable abdominal pain with nausea and vomiting H-pylori, treated Morbid obesity BMI 56 POOJA with home CPAP Hx. HTN, POOJA, Afib, H pylori Plan: IVF maintenance Continue merem, add doxy Amiodarone, metoprolol, and diltiazem, cardiology input appreciated General surgery for cholecystectomy PPI Zofran prn HIDA scan with normal EF of GB. Trend lipase/LFT's Triglycerides normal Monitor and replace electrolytes, potassium Pain management Heparin drip INTERVAL HISTORY: [Patient has improved with less nausea vomiting and abdominal pain. Her lipase has significantly improved down to 1000. Her triglycerides were unremarkable at 37. Patient had her HIDA scan, pending reading. She was evaluated by General surgery and pending laparoscopic cholecystectomy tomorrow. She admits sensation of urinary retention. Not able to completely void urine. No fever, n/v currently.] 02/22 patient has an episode of AFib RVR overnight and was transferred into PCU for amiodarone drip per protocol. This morning patient remains with AFib RVR up to 140 despite being on amiodarone drip, diltiazem and beta-lanny. Patient is clinically diaphoretic not in acute distress not having any chest pain. Her lab this morning with WBC of 13.5 up from 5.6 her neutrophil is 89. Hemoglobin is within normal limits. Potassium otherwise is low at 3.0. Check magnesium. bicarb is 33 BUN 14 creatinine is 1.2 this is down from 1.3 yesterday. BNP is 400. Her lipase is down to 1700 [place] [address]. Check LDH to calculate LAURA's criteria. No abdominal pain at this time. Patient is hypovolemic, we will give her 30 cc/ kilogram of IV fluid now. Given intra-abdominal infection, we will up the antibiotic coverage from Zosyn to meropenem. We will need to send blood cultures as well. Continue to follow cultures. Gen surg has been consulted for possible cholecystitis. TSH is normal. Given AFib RVR, we can start patient on heparin drip per protocol. Patient has been seen by Dr. Bunn as outpatient on Multaq, will consult Cardiology. Home CPAP at night and nap time. Still ill, continue PCCU. 02/23 patient is awake alert oriented x3 no acute event overnight. Patient remains with AFib with rapid ventricular response overnight remaining on amiodarone drip was given digoxin yesterday with a brief improvement. Otherwise no fever with T-max 98.8. Her hematology with improved leukocytosis now at 10 down from 15 hemoglobin is stable. She is on merem. Chemistries with creatinine is 0.9. Potassium is 4.1 bicarb is 30. We will continue with current IV fluids. We will repeat lipase . Her liver function has normalized. Urine culture is negative to date. Blood culture is pending. Continue with amiodarone drip and keeping her in PCU. Pending laparoscopic cholecystectomy with intraoperative cholangiogram by surgery team when AFib RVR has resolved. 02/24 patient is awake alert oriented x3 not in acute distress. She denies any abdominal pain at this time, she denies any nausea and vomiting. No Acute events overnight patient remains on amiodarone drip for AFib RVR. She received dose of digoxin yesterday now on diltiazem 240 mg. Patient oxygen metoprolol 100 mg b.i.d.. She received p.r.n. metoprolol 2.5 mg q.6 hours. Heart rate is 60s to 100s, blood pressure is 117/66. She is on room air saturation oxygen 99% . This morning is remarkable for albumin of 2.4 lipase is down to 230. WBC is down to 8.3 as well and hemoglobin is stable. Blood culture and urine culture are negative. Continue with current on regimen. Patient is pending laparoscopic cholecystectomy. 02/25 patient is lying down in bed not in acute distress having her breakfast, no acute events overnight. Patient remains with AFib RVR especially when she is moving around. Otherwise she has completed amiodarone gtt and was transitioned to PO. Patient is on heparin drip, diltiazem 240 mg p.o., metoprolol 150 mg b.i.d.. Cardiology input is much appreciated. Otherwise we will continue with antibiotic with meropenem given intra-abdominal infection. Patient is not complaining of any pain at this time. She has loose stool today. Remarkable lab this morning with lipase of 270 this is up from 231. Given pancreatitis though with low LAURA's score, the fact that her lipase enzyme increases slightly, we will resume with the IV fluids. Low fat diet. Send lab in the morning. Continue to monitor patient closely. 02/26 patient is being prepared for EFE with cardioversion this morning, no acute event overnight. She denies any abdominal pain or nausea vomiting. Patient still has loose stool. Her lipase is morning has improved with 216 down from 273. We will start her on pancrealipase and continue with low-fat diet. Her urine culture came back with Gram-positive gerald diphtheroid. We will add the Gram-positive coverage, and we we will continue with current antibiotic meropenem. Surgery is following. REVIEW OF SYSTEMS: 12 point ROS reviewed with patient. Pertinent positives mentioned above. Otherwise negative. PHYSICAL EXAM: GENERAL: alert, weak, awake oriented x 3 HEENT: EOMI, Sclera non icteric, moist mucosa NECK: Supple, no JVD, trachea midline LUNGS: Clear breath sounds bilaterally. No wheezes HEART: Regular rate and rhythm. Normal S1 and S2, without murmurs ABD: Abdomen soft, nontender. Bowel sounds present EXT: No clubbing cyanosis or edema NEURO: Alert and oriented to person, follows commands Vital Signs (last 8hr) Date Time Temp Pulse Resp B/P (MAP) Pulse Ox O2 Delivery O2 Flow Rate FiO2 02/27/24 15:25 98.1 56 18 140/63 92 Nasal Cannula 2.0 02/27/24 15:20 97.3 56 17 144/64 96 Nasal Cannula 2.0 02/27/24 15:15 56 16 138/55 95 Nasal Cannula 2.0 02/27/24 15:10 57 16 134/60 96 Aerosol Face Mask 8.0 02/27/24 15:08 56 20 02/27/24 15:05 56 17 143/63 95 Aerosol Face Mask 8.0 02/27/24 15:00 60 16 149/53 96 Nasal Cannula 2.0 02/27/24 14:55 57 16 130/61 98 Nonrebreathing Mask 10.0 02/27/24 14:50 54 15 144/56 97 Nonrebreathing Mask 10.0 02/27/24 14:45 97.5 53 16 149/53 96 Nonrebreathing Mask 10.0 02/27/24 11:48 98.4 102 18 143/92 96 CPAP 02/27/24 08:36 97.9 129 18 95 Room Air LABS: Hematology Labs: Test 02/27/24 03:54 Range/Units White Blood Count 9.9 4.8-10.8 K/uL Red Blood Count 4.36 4.00-5.50 MIL/uL Hemoglobin 13.2 12.0-16.0 g/dL Hematocrit 40.3 36-48 % Mean Corpuscular Volume 92.4 79-99 fL Mean Corpuscular Hemoglobin 30.3 27.0-33.0 pg Mean Corpuscular Hemoglobin Concent 32.8 32.0-36.0 g/dL Red Cell Distribution Width 14.4 11.0-15.5 % Platelet Count 228 130-400 K/uL Mean Platelet Volume 11.0 H 7.5-10.5 fL Immature Granulocyte % (Auto) 1.1 H 0-1 % Neutrophils (%) (Auto) 60.7 40.0-77.0 % Lymphocytes (%) (Auto) 27.5 21.0-51.0 % Monocytes (%) (Auto) 8.5 3.0-13.0 % Eosinophils (%) (Auto) 1.7 0.0-8.0 % Basophils (%) (Auto) 0.5 0.0-5.0 % Neutrophils # (Auto) 6.0 1.8-7.7 K/uL Lymphocytes # (Auto) 2.7 1.0-4.8 K/uL Monocytes # (Auto) 0.8 0.1-1.0 K/uL Eosinophils # (Auto) 0.17 0.00-0.70 K/uL Basophils # (Auto) 0.05 0.00-0.20 K/uL Absolute Immature Granulocyte (auto 0.11 0-1 K/uL Nucleated Red Blood Cells 0.0 0.0-0.19 % Chemistry Labs: Test 02/27/24 03:54 Range/Units Sodium Level 141 136-145 mmol/L Potassium Level 3.6 3.5-5.1 mmol/L Chloride Level 104 101-111 mmol/L Carbon Dioxide Level 31 21-32 mmol/L Blood Urea Nitrogen 12 7-18 mg/dL Creatinine 0.9 0.5-1.0 mg/dL Glomerular Filtration Rate Calc 71 >90 mL/min Random Glucose 103 70-105 mg/dL Total Calcium 8.6 8.5-10.1 mg/dL Magnesium Level 1.90 1.80-2.40 mg/dL Total Bilirubin 0.5 0.2-1.0 mg/dL Aspartate Amino Transf (AST/SGOT) 34 10-37 U/L Alanine Aminotransferase (ALT/SGPT) 44 12-78 U/L Alkaline Phosphatase 80 50-136 U/L Total Protein 6.1 6.0-8.3 g/dL Albumin 2.4 L 3.5-5.0 g/dL Lipase 216 H 16-77 U/L Coagulation Labs: Test 02/26/24 16:48 Range/Units Activated Partial Thromboplast Time 47.8 H 26.3-35.5 SEC DIAGNOSTICS / RADIOLOGY RESULTS: [ ] PLAN NEURO: Minimize central acting medications as possible. Maintain fall precautions, adequate lighting during the day PULMONARY: Supplemental 02 as needed. Maintain aspiration precautions at all times CARDIOVASCULAR: Follow hemodynamics. Vital signs per facility protocol Amiodarone IVF BB Multag per cardiology GI & NUTRITION: Continue with nutritional support. Continue stool softeners and laxatives as needed. KIDNEYS & ELECTROLYTES: Strict monitoring of intake, output and overall fluid balance. Avoid nephrotoxic medications to the extent possible. Medications to be dosed according to renal function. Monitor electrolytes and replace as needed ENDOCRINE: Maintain blood glucose between 100-180 at all times. Hypoglycemia protocol in place INFECTIOUS DISEASE: Trend temperature, WBC and procalcitonin level Follow cultures, deescalate antibiotics as soon as possible. Panculture if new onset fever Zosyn 02/20-02/22 Meropenem 02/22- ONCOLOGY/HEMATOLOGY/COAGULATION: Monitor for s/s of bleeding Monitor hemoglobin, coagulation studies as needed SKIN: Pressure ulcer prevention per facility protocol Specialty mattress ORTHO/REHAB: Continue PT/OT Prophylaxis: Continue GI and DVT prophylaxis Code Status: Full Resuscitation Disposition: TBD Other: Total patient care time exceeds 35 minutes excluding all procedures. PATRICIA SHARP [employer]IVERS[employer] PRESIDENT Feb 27, 2024 16:04
[2024-02-27] MEDS: PHARMACY COMMUNICATION MISC SCH (17:00)
[2024-02-27] MEDS: APIXaban 5 MG TABLET ONE (18:41)
[2024-02-27] MEDS: APIXaban 5 MG TABLET PO SCH (18:41)
--- NOTE | 2024-02-27 19:41 | NUR ---
PTS ELIQUIS 5MG DOSE WAS GIVEN BY DAYSHIFT AT 184, PER PHARMACY COMMUNICATION TURN HEPARIN GTT OFF 1 HOUR AFTER STARTING ELIQUIS.PTS HEPARIN GTT DISCONTINUED AT 1940.
--- NOTE | 2024-02-27 19:42 | HMCSR ---
APPROVED REPORT EXAM: Transesophageal echocardiogram with color flow Doppler. PROCEDURE After obtaining informed consent, patient underwent transesophageal echo in the GI Lab 15 mL 2% Viscous Lidocaine was given as a topical anesthetic prior to the administration of the consc ious sedation. Type of Sedation: Please refer to medication administration record. Sedation was administered by Please refer to medication administration record. . Sedation was achieved with Please refer to medication administration record. intravenously. Transesophageal probe was inserted and advanced into esophagus without difficulty by Isai Casas MD . Prior to cardioversion, of Please refer to medication administration record. was administered. Synchronized Cardioversion attempted: Successful Synchronized Cardioversion acheived with 200 Joules after 1 attempt(s). Rhythm following Synchronized Cardioversion: Sinus Rhythm Throughout the procedure, the blood pressure, pulse oximetry, cardiac rhythm, and rate were monitored . Left Ventricle Left ventricular cavity size is normal. Mild global hypokinesis There is normal left ventricular wall thickness. LVEF is 35-40%. Right Ventricle The right ventricle is normal size. The right ventricular systolic function is normal. Atria Spontaneous contrast noted in left atrium. No left atrial appendage thrombus noted. The left atrium i s mildly dilated. No evidence of PFO/ASD by color doppler. The right atrium size is normal. Spontaneo us contrast noted in right atrium. Aortic Valve The aortic valve is trileaflet normal in structure and function. Mild aortic regurgitation is present . There is no aortic valvular stenosis. Mitral Valve Mitral valve leaflets open well. There is trace mitral valve regurgitation noted. There is no mitral valve stenosis. Tricuspid Valve The tricuspid valve leaflets appear normal. There is trace of tricuspid valve regurgitation noted. Pulmonic Valve The pulmonary valve is normal in structure and function. There is no pulmonic valvular regurgitation. Great Vessels The aortic root is normal in size. The ascending aorta is normal in size. The descending aorta is nor mal in size. Pericardium The pericardium appears normal. Conclusion LVEF is 35-40%. Mild global hypokinesis No evidence of PFO/ASD by color doppler.
[2024-02-28] VITALS: BP 158/76; PULSE 55; RESP 18; TEMP 98.5
[2024-02-28 03:59] LABS: BASOPHILS # (AUTO) 0.03 K/uL (0.00-0.20); BASOPHILS % (AUTO) 0.4 % (0.0-5.0); EOSINOPHILS # (AUTO) 0.14 K/uL (0.00-0.70); EOSINOPHILS % (AUTO) 1.8 % (0.0-8.0); HEMATOCRIT 36.7 % (36-48); IMMATURE GRANULOCYTE ABSOLUTE 0.08 K/uL (0-1); LYMPHOCYTES # (AUTO) 2.1 K/uL (1.0-4.8); LYMPHOCYTES % (AUTO) 26.2 % (21.0-51.0); MEAN CORPUSCULAR HEMOGLOBIN 30.2 pg (27.0-33.0); MEAN CORPUSCULAR VOLUME 91.5 fL (79-99); MONOCYTES # (AUTO) 0.7 K/uL (0.1-1.0); MONOCYTES % (AUTO) 8.8 % (3.0-13.0); NEUTROPHILS # (AUTO) 4.9 K/uL (1.8-7.7); NEUTROPHILS % (AUTO) 61.8 % (40.0-77.0); PLATELET COUNT (AUTO) 246 K/uL (130-400); RED BLOOD CELL COUNT(AUTO) 4.01 MIL/uL (4.00-5.50); RED CELL DISTRIBUTION WIDTH 14.8 % (11.0-15.5)
[2024-02-28 04:06] VITALS: BP 151/75; PULSE 66; RESP 20; TEMP 98.3
[2024-02-28 04:22] LABS: ALBUMIN 2.4 g/dL (3.5-5.0); BILIRUBIN,TOTAL 0.6 mg/dL (0.2-1.0); CREATININE 0.9 mg/dL (0.5-1.0); POTASSIUM 3.7 mmol/L (3.5-5.1); TOTAL PROTEIN, SERUM 5.9 g/dL (6.0-8.3)
[2024-02-28 07:25] VITALS: BP_SYST 153; BP_SYST 159; BP_DIAS 69; BP_DIAS 75; PULSE 58; PULSE 59; RESP 18; TEMP 98.1; TEMP 98.3; O2SAT 96
--- NOTE | 2024-02-28 08:07 | PN ---
[facility] CARDIOLOGY PROGRESS NOTE Date Patient Seen: Feb 28, 2024 Time of Visit: 08:03 Interval History: Underwent EFE cardioversion yesterday. in sinus VR 60 bpm. feels well Physical Examination: GENERAL: [No acute distress.] HEAD: [Normal with no signs of head trauma.] EYES: [ EOMI, conjunctiva and sclera normal.] ENT: [Hearing grossly intact, normal oropharynx.] NECK: [Supple without JVD. ] HEART: [Normal rate and rhythm. ] VASC: [Peripheral pulses +2 bilaterally.] ABD: [, soft, nontender, ] EXT: [No clubbing, cyanosis or edema.] NEURO: [Awake, alert, and oriented x3..] Laboratory: [ ] Hematology Labs: Test 02/28/24 03:45 Range/Units White Blood Count 8.0 4.8-10.8 K/uL Red Blood Count 4.01 4.00-5.50 MIL/uL Hemoglobin 12.1 12.0-16.0 g/dL Hematocrit 36.7 36-48 % Mean Corpuscular Volume 91.5 79-99 fL Mean Corpuscular Hemoglobin 30.2 27.0-33.0 pg Mean Corpuscular Hemoglobin Concent 33.0 32.0-36.0 g/dL Red Cell Distribution Width 14.8 11.0-15.5 % Platelet Count 246 130-400 K/uL Mean Platelet Volume 11.0 H 7.5-10.5 fL Immature Granulocyte % (Auto) 1.0 0-1 % Neutrophils (%) (Auto) 61.8 40.0-77.0 % Lymphocytes (%) (Auto) 26.2 21.0-51.0 % Monocytes (%) (Auto) 8.8 3.0-13.0 % Eosinophils (%) (Auto) 1.8 0.0-8.0 % Basophils (%) (Auto) 0.4 0.0-5.0 % Neutrophils # (Auto) 4.9 1.8-7.7 K/uL Lymphocytes # (Auto) 2.1 1.0-4.8 K/uL Monocytes # (Auto) 0.7 0.1-1.0 K/uL Eosinophils # (Auto) 0.14 0.00-0.70 K/uL Basophils # (Auto) 0.03 0.00-0.20 K/uL Absolute Immature Granulocyte (auto 0.08 0-1 K/uL Nucleated Red Blood Cells 0.0 0.0-0.19 % Chemistry Labs: Test 02/28/24 03:45 Range/Units Sodium Level 141 136-145 mmol/L Potassium Level 3.7 3.5-5.1 mmol/L Chloride Level 106 101-111 mmol/L Carbon Dioxide Level 30 21-32 mmol/L Blood Urea Nitrogen 15 7-18 mg/dL Creatinine 0.9 0.5-1.0 mg/dL Glomerular Filtration Rate Calc 71 >90 mL/min Random Glucose 94 70-105 mg/dL Total Calcium 8.6 8.5-10.1 mg/dL Magnesium Level 2.00 1.80-2.40 mg/dL Total Bilirubin 0.6 0.2-1.0 mg/dL Aspartate Amino Transf (AST/SGOT) 33 10-37 U/L Alanine Aminotransferase (ALT/SGPT) 38 12-78 U/L Alkaline Phosphatase 72 50-136 U/L Total Protein 5.9 L 6.0-8.3 g/dL Albumin 2.4 L 3.5-5.0 g/dL Lipase 190 H 16-77 U/L Coagulation Labs: Test 02/27/24 16:29 Range/Units Activated Partial Thromboplast Time 30.1 # 26.3-35.5 SEC Diagnostics / Radiology: reviewed Impression and Plan: 1. Persistent atrial fibrillation with rapid ventricular response. 2. Acute biliary pancreatitis. 3. Dilated cardiomyopathy with an ejection fraction of 30% on this admission with a history of tachycardia mediated cardiomyopathy. s/p EFE/DCCV by Dr Casas. Remains in sinus rhythm. From Ep standpoint, patient may be discharged home on eliquis 5 mg BID, amiodarone, metoprolol 100 mg BID. No diltiazem. We will see her in clinic in 4 weeks. COLETTE RUSSELL MD Feb 28, 2024 08:07
[2024-02-28] MEDS: metoPROLOL tartRATE 50 MG TAB PO SCH (09:24)
--- NOTE | 2024-02-28 09:30 | NUR ---
PT IS COMFORTABLE AND STATES THAT SHE IS NOT FEELING THE HOT SWEATS LIKE SHE WAS PRIOR TO THE CARDIOVERSION. PT IN [employer] SPIRITS AND WILL PROBABLY WILL BE DISCHARGED TODAY.
[2024-02-28 11:05] VITALS: BP 153/75; PULSE 58; RESP 18; TEMP 98.1
--- NOTE | 2024-02-28 12:21 | PN ---
[facility] PROGRESS NOTE Date Patient Seen: Feb 28, 2024 Time of Visit: 12:21 Supervising Physician: [ ] Primary Care Physician: Dr. Codey Cameron Outpatient Specialists: Inpatient Consults: Dr. Mix, Dr. Boone PROBLEM LIST: Acute on chronic pancreatitis, LAURA's score-1 (1% predicted mortality)--- 48 hour LAURA 2pts (1% predicted mortality) Acute cholecystitis Atrial fibrillation, with RVR- on anti-arrhythmics, no AC, history of ablation Gram positive Gerald cystitis- Diphtheroid Intractable abdominal pain with nausea and vomiting H-pylori, treated Morbid obesity BMI 56 POOJA with home CPAP Hx. HTN, POOJA, Afib, H pylori Plan: IVF maintenance Continue merem, add doxy Amiodarone, metoprolol, and diltiazem, cardiology input appreciated General surgery for cholecystectomy PPI Zofran prn HIDA scan with normal EF of GB. Trend lipase/LFT's Triglycerides normal Monitor and replace electrolytes, potassium Pain management Heparin drip INTERVAL HISTORY: [Patient has improved with less nausea vomiting and abdominal pain. Her lipase has significantly improved down to 1000. Her triglycerides were unremarkable at 37. Patient had her HIDA scan, pending reading. She was evaluated by General surgery and pending laparoscopic cholecystectomy tomorrow. She admits sensation of urinary retention. Not able to completely void urine. No fever, n/v currently.] 02/22 patient has an episode of AFib RVR overnight and was transferred into PCU for amiodarone drip per protocol. This morning patient remains with AFib RVR up to 140 despite being on amiodarone drip, diltiazem and beta-lanny. Patient is clinically diaphoretic not in acute distress not having any chest pain. Her lab this morning with WBC of 13.5 up from 5.6 her neutrophil is 89. Hemoglobin is within normal limits. Potassium otherwise is low at 3.0. Check magnesium. bicarb is 33 BUN 14 creatinine is 1.2 this is down from 1.3 yesterday. BNP is 400. Her lipase is [place] 1700 [place] [address]. Check LDH to calculate LAURA's criteria. No abdominal pain at this time. Patient is hypovolemic, we will give her 30 cc/ kilogram of IV fluid now. Given intra-abdominal infection, we will up the antibiotic coverage from Zosyn to meropenem. We will need to send blood cultures as well. Continue to follow cultures. Gen surg has been consulted for possible cholecystitis. TSH is normal. Given AFib RVR, we can start patient on heparin drip per protocol. Patient has been seen by Dr. Bunn as outpatient on Multaq, will consult Cardiology. Home CPAP at night and nap time. Still ill, continue PCCU. 02/23 patient is awake alert oriented x3 no acute event overnight. Patient remains with AFib with rapid ventricular response overnight remaining on amiodarone drip was given digoxin yesterday with a brief improvement. Otherwise no fever with T-max 98.8. Her hematology with improved leukocytosis now at 10 down from 15 hemoglobin is stable. She is on merem. Chemistries with creatinine is 0.9. Potassium is 4.1 bicarb is 30. We will continue with current IV fluids. We will repeat lipase . Her liver function has normalized. Urine culture is negative to date. Blood culture is pending. Continue with am iodarone drip and keeping her in PCU. Pending laparoscopic cholecystectomy with intraoperative cholangiogram by surgery team when AFib RVR has resolved. 02/24 patient is awake alert oriented x3 not in acute distress. She denies any abdominal pain at this time, she denies any nausea and vomiting. No Acute events overnight patient remains on amiodarone drip for AFib RVR. She received dose of digoxin yesterday now on diltiazem 240 mg. Patient oxygen metoprolol 100 mg b.i.d.. She received p.r.n. metoprolol 2.5 mg q.6 hours. Heart rate is 60s to 100s, blood pressure is 117/66. She is on room air saturation oxygen 99%. This morning is remarkable for albumin of 2.4 lipase is down to 230. WBC is down to 8.3 as well and hemoglobin is stable. Blood culture and urine culture are negative. Continue with current on regimen. Patient is pending laparoscopic cholecystectomy. 02/25 patient is lying down in bed not in acute distress having her breakfast, no acute events overnight. Patient remains with AFib RVR especially when she is moving around. Otherwise she has completed amiodarone gtt and was transitioned to PO. Patient is on heparin drip, diltiazem 240 mg p.o., metoprolol 150 mg b.i.d.. Cardiology input is much appreciated. Otherwise we will continue with antibiotic with meropenem given intra-abdominal infection. Patient is not complaining of any pain at this time. She has loose stool today. Remarkable lab this morning with lipase of 270 this is up from 231. Given pancreatitis though with low LAURA's score, the fact that her lipase enzyme increases slightly, we will resume with the IV fluids. Low fat diet. Send lab in the mo rning. Continue to monitor patient closely. 02/26 patient is being prepared for EFE with cardioversion this morning, no acute event overnight. She denies any abdominal pain or nausea vomiting. Patient still has loose stool. Her lipase is morning has improved with 216 down from 273. We will start her on pancrealipase and continue with low-fat diet. Her urine culture came back with Gram-positive gerald diphtheroid. We will add the Gram-positive coverage, and we we will continue with current antibiotic me ropenem. Surgery is following. REVIEW OF SYSTEMS: 12 point ROS reviewed with patient. Pertinent positives mentioned above. Otherwise negative. PHYSICAL EXAM: GENERAL: alert, weak, awake oriented x 3 HEENT: EOMI, Sclera non icteric, moist mucosa NECK: Supple, no JVD, trachea midline LUNGS: Clear breath sounds bilaterally. No wheezes HEART: Regular rate and rhythm. Normal S1 and S2, without murmurs ABD: Abdomen soft, nontender. Bowel sounds present EXT: No clubbing cyanosis or edema NEURO: Alert and oriented to person, follows commands Vital Signs (last 8hr) Date Time Temp Pulse Resp B/P (MAP) Pulse Ox O2 Delivery O2 Flow Rate FiO2 02/28/24 07:25 96 Nasal Cannula* 2 28 02/28/24 07:25 98.2 59 18 159/69 97 Room Air 0.0 21 LABS: Hematology Labs: Test 02/28/24 03:45 Range/Units White Blood Count 8.0 4.8-10.8 K/uL Red Blood Count 4.01 4.00-5.50 MIL/uL Hemoglobin 12.1 12.0-16.0 g/dL Hematocrit 36.7 36-48 % Mean Corpuscular Volume 91.5 79-99 fL Mean Corpuscular Hemoglobin 30.2 27.0-33.0 pg Mean Corpuscular Hemoglobin Concent 33.0 32.0-36.0 g/dL Red Cell Distribution Width 14.8 11.0-15.5 % Platelet Count 246 130-400 K/uL Mean Platelet Volume 11.0 H 7.5-10.5 fL Immature Granulocyte % (Auto) 1.0 0-1 % Neutrophils (%) (Auto) 61.8 40.0-77.0 % Lymphocytes (%) (Auto) 26.2 21.0-51.0 % Monocytes (%) (Auto) 8.8 3.0-13.0 % Eosinophils (%) (Auto) 1.8 0.0-8.0 % Basophils (%) (Auto) 0.4 0.0-5.0 % Neutrophils # (Auto) 4.9 1.8-7.7 K/uL Lymphocytes # (Auto) 2.1 1.0-4.8 K/uL Monocytes # (Auto) 0.7 0.1-1.0 K/uL Eosinophils # (Auto) 0.14 0.00-0.70 K/uL Basophils # (Auto) 0.03 0.00-0.20 K/uL Absolute Immature Granulocyte (auto 0.08 0-1 K/uL Nucleated Red Blood Cells 0.0 0.0-0.19 % Chemistry Labs: Test 02/28/24 03:45 Range/Units Sodium Level 141 136-145 mmol/L Potassium Level 3.7 3.5-5.1 mmol/L Chloride Level 106 101-111 mmol/L Carbon Dioxide Level 30 21-32 mmol/L Blood Urea Nitrogen 15 7-18 mg/dL Creatinine 0.9 0.5-1.0 mg/dL Glomerular Filtration Rate Calc 71 >90 mL/min Random Glucose 94 70-105 mg/dL Total Calcium 8.6 8.5-10.1 mg/dL Magnesium Level 2.00 1.80-2.40 mg/dL Total Bilirubin 0.6 0.2-1.0 mg/dL Aspartate Amino Transf (AST/SGOT) 33 10-37 U/L Alanine Aminotransferase (ALT/SGPT) 38 12-78 U/L Alkaline Phosphatase 72 50-136 U/L Total Protein 5.9 L 6.0-8.3 g/dL Albumin 2.4 L 3.5-5.0 g/dL Lipase 190 H 16-77 U/L Coagulation Labs: Test 02/27/24 16:29 Range/Units Activated Partial Thromboplast Time 30.1 # 26.3-35.5 SEC DIAGNOSTICS / RADIOLOGY RESULTS: [ ] PLAN NEURO: Minimize central acting medications as possible. Maintain fall precautions, adequate lighting during the day PULMONARY: Supplemental 02 as needed. Maintain aspiration precautions at all times CARDIOVASCULAR: Follow hemodynamics. Vital signs per facility protocol Amiodarone IVF BB Multag per cardiology GI & NUTRITION: Continue with nutritional support. Continue stool softeners and laxatives as needed. KIDNEYS & ELECTROLYTES: Strict monitoring of intake, output and overall fluid balance. Avoid nephrotoxic medications to the extent possible. Medications to be dosed according to renal function. Monitor electrolytes and replace as needed ENDOCRINE: Maintain blood glucose between 100-180 at all times. Hypoglycemia protocol in place INFECTIOUS DISEASE: Trend temperature, WBC and procalcitonin level Follow cultures, deescalate antibiotics as soon as possible. Panculture if new onset fever Zosyn 02/20-02/22 Meropenem 02/22- ONCOLOGY/HEMATOLOGY/COAGULATION: Monitor for s/s of bleeding Monitor hemoglobin, coagulation studies as needed SKIN: Pressure ulcer prevention per facility protocol Specialty mattress ORTHO/REHAB: Continue PT/OT Prophylaxis: Continue GI and DVT prophylaxis Code Status: Full Resuscitation Disposition: TBD Other: Total patient care time exceeds 35 minutes excluding all procedures. FELTON AMANDA EXECUTIVE CHAIRMAN Feb 28, 2024 12:21
[2024-02-28] MEDS ORDERED: DOXY100C61 PO (14:50)
[2024-02-28] MEDS ORDERED: AMIO200T44 PO (14:50)
[2024-02-28] MEDS ORDERED: APIX5TAB PO (14:50)
[2024-02-28] MEDS ORDERED: METO50 PO (14:50)
--- NOTE | 2024-02-28 14:52 | DS ---
[facility] DISCHARGE SUMMARY Date Patient Seen: Feb 28, 2024 Time of Visit: 14:52 Supervising Physician: Sonu Martinez MD Primary Care Physician: Dr. Codey Cameron Outpatient Specialists: Inpatient Consults: Dr. Mix, Dr. Boone PROBLEM LIST: Acute on chronic pancreatitis, LAURA's score-1 (1% predicted mortality)--- 48 hour LAURA 2pts (1% predicted mortality), resolved Acute cholecystitis, resolved, not a candidate for surgery this admission Atrial fibrillation, with RVR- on anti-arrhythmics, no AC, history of ablation s/p EFE witrh cardioversion on 02/27/24 Gram positive Gerald cystitis- Diphtheroid- on Doxy Intractable abdominal pain with nausea and vomiting, resolved H-pylori, treated Morbid obesity BMI 56 POOJA with home CPAP Hx. HTN, POOJA, Afib, H pylori HOSPITAL COURSE: HPI [02/21/24-This is a 68-year-old female with a history of hypertension and chronic pancreatitis who presented to the ED for evaluation of severe abdominal pain associated with nausea and vomiting onset to few hours prior to arrival. Per ED report, her pain was located mostly in epigastric area as well as right upper quadrant. She has a history of pancreatitis and had an endoscopy done recently which revealed H pylori for which she was treated. Her labs on admission remarkable for hypokalemia of 2.8 [place] [address]. She has some mild elevation in her LFTs with ALT of 2.23 and AST of 99. Her bilirubin was 1.5. Blood sugar is 133, WBCs were 5. Her abdominal ultrasound on admission revealed a distended gallbladder, no stones, but did have pericholecystic edema which could represent acute cholecystitis. She had a CT of the abdomen on 10/13/2023 which revealed small bilateral renal cysts as well as distended gallbladder but was otherwise unremarkable. Patient currently in 5/10 pain. States symptoms started after eating [employer] the day before around 4:30PM. She then ate a muffin around 9PM and started with vomiting greater than 10 times, no diarrhea. She last vomited as she arrived in the ED. Patient admits a hx of pancreatitis X 4. She reports being treated for an incomplete bowel obstruction in 2006, no surgical intervention at that time.] Patient was started on antibiotics with meropenem IV. On 02/22/24 patient developed AFib with RVR and was transferred to PCCU on amiodarone drip. She was seen on 02/23/24 by General surgery , we had recommended laparoscopic cholecystectomy with intraoperative cholangiogram once patient is more stable. 02/23/24- cardiology was consulted for the AFib with RVR. Heart rate in the 130s to 140s despite being on diltiazem 240 mg daily metoprolol tartrate 100 mg p.o. b.i.d. and amiodarone drip. Per Cardiology patient to continue anticoagulation with heparin drip and four days for a 2D echo to assess patient's systolic and diastolic function. 02/23-patient continue with atrial fibrillation the utilization was added per Cardiology we cautioned for channel blockers because of the depressed ejection fraction. By 02/25/24 patient's abdominal pain has resolved denied any nausea or vomiting, WBCs started down trending to 8.3, but atrial fibrillation with RVR continued with heart rate in the 120s but not sustained. 2D echo 02/23/24 demonstrated moderate concentric LVH and LVEF of 30% with tachycardia mediated cardiomyopathy per Cardiology. Patient tolerating a non-fat diet. Per surgery CO planning a lap choly for later this week awaiting to be stabilized on the cardiac meds before taken to the OR. 02/26/24-overnight she continued with the atrial fibrillation RVR between 9120 and brief episodes of 130 beats per minute. She was cautiously continued on diltiazem, metoprolol tartrate, 150 mg p.o. b.i.d.. Vice President Of Software Development was consulted. Due to patient's heart rate up to the 130s and 140s general surgery opted for no operation at this time. Pending business risk analyst eval and recommendations. 02/27/24-patient underwent EFE guided cardioversion and restored sinus rhythm. 02/28/24-patient is status post EFE guided cardioversion she rami since I and rhythm hemodynamically stable has been started on Eliquis 5 mg b.i.d. and heparin drip has been stopped. Patient to continue amiodarone metoprolol 100 mg b.i.d. no diltiazem and to follow up with [facility] in 4 weeks. Due to patient post cardioversion on anticoagulation with Eliquis 5 mg p.o. b.i.d. recommendation per Cardiology is for patient to have uninterrupted anticoagulation for at least four weeks before any planned surgery. Patient to follow up with General surgery as outpatient after four weeks for possibly elective scheduled cholecystectomy. Inform patient and she verbalized understanding. At this time patient is stable for discharge. CHRONIC PROBLEMS: continue previous management per PCP unless otherwise indicated WIRELESS INTERNET INSTALLER FINDINGS/RECOMMENDATIONS: [ ] s/p EFE/DCCV by Dr Casas. Remains in sinus rhythm. From Ep standpoint, patient may be discharged home on eliquis 5 mg BID, amiodarone, metoprolol 100 mg BID. No diltiazem. We will see her in clinic in 4 weeks. Per cardiology and General Surgery ( Dr Mix) not a candidate for surgery until 4 weeks of Eliquis. PROCEDURES: as mentioned above Pt hemodynamically stable and afebrile at time of discharge. PCP notified of patients admission, hospital course and discharge. New Medications: Doxycycline Monohydrate (Doxycycline Monohydrate) 100 Mg Capsule 1 CAP PO BID for 7 Days, #20 CAP 0 Refills Amiodarone HCl (Pacerone) 200 Mg Tablet 400 MG PO DAILY, #60 TAB 1 Refill Apixaban (Eliquis) 5 Mg Tablet 5 MG PO BID, #60 TAB 1 Refill Metoprolol Tartrate (Lopressor 50Mg Tab) 50 Mg Tab 100 MG PO BID, #120 TAB 1 Refill Continued Medications: Apixaban (Eliquis) 5 Mg Tablet 5 MG PO BID, TAB Hydrochlorothiazide (Hydrochlorothiazide) 12.5 Mg Tablet 12.5 MG PO DAILY, TAB Lisinopril (Lisinopril) 10 Mg Tablet 10 MG PO DAILY, TAB Metoprolol Tartrate (Metoprolol Tartrate) 100 Mg Tablet 100 MG PO BID, TAB Discontinued Medications: Diltiazem HCl (Diltiazem 24Hr ER) 240 Mg Cap.er.24h 240 MG PO DAILY, CAPSULE. Dronedarone Hydrochloride (Multaq) 400 Mg Tablet 400 MG PO BID, TAB PHYSICAL EXAM: GENERAL: alert, weak, awake oriented x 3 HEENT: EOMI, Sclera non icteric, moist mucosa NECK: Supple, no JVD, trachea midline LUNGS: Clear breath sounds bilaterally. No wheezes HEART: Regular rate and rhythm. Normal S1 and S2, without murmurs ABD: Abdomen soft, nontender. Bowel sounds present EXT: No clubbing cyanosis or edema NEURO: Alert and oriented to person, follows commands FOLLOW-UP: Pt to f/u primary care physician in 1-3 days. Patient to follow up with Dr Bunn (EP) in 4 weeks. Follow up with Esme Casas in one week. Follow up with Dr Mix in 4 weeks. RECOMMENDATIONS: See Discharge Instructions This case was seen and discussed with my supervising physician. More than 30 minutes spent on discharge process, including evaluation of the patient, discussion with nursing staff, medication reconciliation and follow-up appointments FELTON AMANDA [facility] Feb 28, 2024 14:52
[2024-02-28 15:30] VITALS: BP 161/85; PULSE 63; RESP 19; TEMP 97.6
--- NOTE | 2024-02-28 16:00 | NUR ---
PT WAS DISCHARGED AFTER MAKING APPOINTMENTS WITH DRS. PATTON, TYLOR, AND JAMIL. PT WAS ADVISED TO SEE HER PCP IN 1 TO 3 DAYS. PT WAS ADVISED TO TAKE HER ELIQUIS ORDERED AND KEEP HER APPOINTMENTS.
== END 2024-02-28 15:45 | disposition home or self-care (01) | DRG 444 ==
LOC: EDH 04:30 → OBSVTOIN 06:30 → EDHIP 06:30 → 4BH 02-22 05:30 → 2AH 02-22 23:40
PROVIDERS: ADMIT Internal Medicine; ATTEND Internal Medicine
PROC: 5A2204Z Restoration of Cardiac Rhythm, Single (ICD-10-PCS; principal; 2024-02-27)
DX: K80.63 Calculus of gallbladder and bile duct with acute cholecystitis with obstruction (principal); K85.10 Biliary acute pancreatitis without necrosis or infection; I48.21 Permanent atrial fibrillation; Z68.43 Body mass index [BMI] 50.0-59.9, adult; I42.0 Dilated cardiomyopathy; K86.1 Other chronic pancreatitis; E87.6 Hypokalemia; E66.01 Morbid (severe) obesity due to excess calories; G47.33 Obstructive sleep apnea (adult) (pediatric); N30.90 Cystitis, unspecified without hematuria; I10 Essential (primary) hypertension; N28.1 Cyst of kidney, acquired; K82.8 Other specified diseases of gallbladder; J44.9 Chronic obstructive pulmonary disease, unspecified; Z82.49 Family history of ischemic heart disease and other diseases of the circulatory system; Z86.19 Personal history of other infectious and parasitic diseases; Z88.5 Allergy status to narcotic agent; Z96.653 Presence of artificial knee joint, bilateral; Z79.01 Long term (current) use of anticoagulants; Z79.899 Other long term (current) drug therapy
CPT/HCPCS: 36415; 36600; 71045; 76705; 78227; 80048; 80053; 80076; 80162; 81001; 82435; 82803; 82947; 83605; 83615; 83690; 83735; 83880; 84100; 84132; 84295; 84443; 84478; 85018; 85025; 85610; 85730; 87040; 87086; 92960; 93005; 93306; 93312; 93325; 93356; 94640; 96365; 96375; 99285; A9537; G0378; J0282; J0295; J0330; J0461; J1160; J1644; J1650; J2003; J2185; J2270; J2405; J2470; J2543; J2704; J2765; J3475; J3480; J3490; J7030; J7060; J7120

== ENCOUNTER → 2024-03-20 | Outpatient (CLI) | payer OTHER ==
[~2024-03-20] MED LIST changes: +AMIO200T44 PO; -DILT240C97 PO; +DOXY100C61 PO; -DRON400T7 PO; +METO50 PO
--- NOTE | 2024-03-21 11:39 | HMCSR ---
APPROVED REPORT EXAM: Two-dimensional and M-mode echocardiogram with Doppler and color Doppler. INDICATION ICD: I42.0 Dilated cardiomyopathy 2D Dimensions RVDd4.3 cmLVEF(%)36.6 (>50%)LVED Vol(simp.)98.0 mL IVSd1.1 (0.7-1.1cm)FS(%)18 %LVES Vol(simp.)65.0 mL LVDd6.1 (3.8-5.6cm)Ao Root(2D)3.2 (2.0-3.7cm)LVEF(%, simp.)34 % PWd1.1 (0.7-1.1cm)LVOT diam2.2 (1.8-2.4cm)LA ESV INDEX (BP)60.38 mL/m2 LVDs5.0 (2.5-4.0cm)IVC diam1.6 cm Aortic Valve AoV Vmax1.0 m/Candido Peak GR3.7 mmHgLVOT Vmax0.7 m/s AoV VTI0.2 mAo Mean GR2.4 mmHgLVOT VTI0.11 m JENNIFER (VMAX)2.2 cm2AVA (VTI) 2.2 cm2 Mitral Valve MV E Kqpm135.7 cm/sDECEL Obpz892 ms MR Max PG59 mmHgP 1/2 T45 ms MVA (PHT)4.9 cm2 Pulmonary Valve PV Vmax0.7 m/sPV VTI0.15 mPV Mean GR1 mmHg PV Peak GR1.8 mmHgPI End Tressa. Liang 1.5 cm/s Tricuspid Valve TR Vmax2.4 m/sRAP (EST) 3 dlCyMPUG51.5 mmHg TR Peak GR22.5 mmHg Left Ventricle The left ventricle is dilated. There is mild concentric left ventricular hypertrophy. Left ventricle systolic function is moderately to severely impaired. The Ejection Fraction is 30-35%. The LV diastol ic function was unable to be assessed due to atrial arrhythmia. Right Ventricle The right ventricle is mildly dilated. Cannot assess right ventricular systolic function. Atria The left atrium is severely dilated. The right atrium size is normal. Aortic Valve Aortic valve is trileaflet. Aortic valve leaflets are sclerotic but open well. Trace aortic regurgita tion. There is no aortic valvular stenosis. Mitral Valve Mitral valve leaflets are mildly calcified. Mitral regurgitation is trace to mild. There is no mitral valve stenosis. Tricuspid Valve The tricuspid valve leaflets appear normal. There is trace tricuspid regurgitation. Pulmonic Valve Pulmonic valve is not well visualized. There is trace pulmonic valvular regurgitation. Great Vessels The aortic root is normal in size. The IVC is normal in size and collapses >50% with inspiration. Pericardium No pericardial effusion. Other Information Quality : Technically Limited Technically limited study due to body habitus. Conclusion ATRIAL FIBRILLATION IS NOTED, WITH OBSERVEDHEART RATES BETWEEN 90 AND 129 BPM. The left ventricle is dilated. There is mild concentric left ventricular hypertrophy. Left ventricle systolic function is moderately to severely impaired. The Ejection Fraction is 30-35%. The LV diastolic function was unable to be assessed due to atrial arrhythmia. The right ventricle is mildly dilated. Cannot assess right ventricular systolic function. The left atrium is severely dilated. Trace aortic regurgitation. Mitral regurgitation is trace to mild.
== END | disposition home or self-care (01) ==
LOC: SHCH 11:08
PROVIDERS: ATTEND Internal Medicine Cardiovascular Disease
DX: I08.0 Rheumatic disorders of both mitral and aortic valves (principal); I42.0 Dilated cardiomyopathy; I48.91 Unspecified atrial fibrillation
CPT/HCPCS: 93306